=== PATIENT | male | born 1940 | race Caucasian/White ===

== ENCOUNTER → 2017-10-31 12:00 | Outpatient (CLI) | payer MEDICARE, SELFPAY | PROVIDERS: PCP Family Medicine; Visit Provider Internal Medicine Cardiovascular Disease | DX: I25.10 Atherosclerotic heart disease of native coronary artery without angina pectoris (principal); I34.0 Nonrheumatic mitral (valve) insufficiency; E11.9 Type 2 diabetes mellitus without complications; I10 Essential (primary) hypertension | CPT/HCPCS: 99213 ==

== ENCOUNTER 2018-05-19 00:41 | Outpatient (CLI) | payer MEDICARE, SELFPAY ==
--- NOTE | 2018-05-19 10:35 | MERGE_ITS ---
*[facility]* *[facility]* [address] [place] [address] Date of study: 05/19/2018 Transthoracic Echocardiography M-mode, complete 2D, complete spectral Doppler, and color Doppler *STUDY CONCLUSIONS* Summary: 1. Left ventricle: The cavity size was normal. Wall thickness was increased in a pattern of mild LVH. Systolic function was mildly to moderately reduced. The estimated ejection fraction was 40-45%. Akinesis of the apicalanteroseptal, anterior, anterolateral, inferior, and apical myocardium. 2. Aortic valve: There was moderate to severe stenosis. Peak velocity (S): 3m/sec. Mean gradient (S): 22.3mm Hg. Valve area (VTI): 1.1cm^2. 3. Aortic root: The aortic root was mildly dilated. 4.0 cm. 4. Ascending aorta: The ascending aorta was mildly dilated. 3.7 cm. 5. Right ventricle: The cavity size was normal. Wall thickness was normal. Systolic function was normal. *PATIENT PRESENTATION* Height: 177.8cm ((70in) ) S/D Pressure: 143 / 66 Weight: 80.3kg ((176.6lb) ) BSA: 2m^2 Test start time: 10:40 AM. Test stop time: 11:45 AM. PERFORMING Unknown ORDERING Nina Murguia REFERRING Nina Murguia PERFORMING [facility] RT Clay Robledo)(CT), [facility] CONSULTING Russel Steen *PROCEDURE DATA* Procedure information: The patient was identified by two identifiers. This study was interpreted by [facility]. Pertinent images and digital data are archived for permanent storage and are available for subsequent review. Comparison was made to the study of 11/11/2014. Study status: Routine. Transthoracic echocardiography. M-mode, complete 2D, complete spectral Doppler, and color Doppler. A Transthoracic Echocardiogram was performed. Scanning was performed from the parasternal, apical, subcostal, and suprasternal notch acoustic windows. Images were obtained using an [id number] cardiac ultrasound machine. Image quality was adequate. Study completion: The patient tolerated the procedure well. There were no complications. 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 Wall thickness was increased in a pattern of mild LVH. There was a false tendon within the ventricle. Systolic function was mildly to moderately reduced. The estimated ejection fraction was 40-45%. Regional wall motion abnormalities: Akinesis of the apicalanteroseptal, anterior, anterolateral, inferior, and apical myocardium. Findings consistent with diastolic dysfunction. Aortic valve: Trileaflet; moderately thickened, moderately calcified leaflets. Valve mobility was restricted. Doppler: There was moderate to severe stenosis. There was no significant regurgitation. VTI ratio of LVOT to aortic valve: 0.27. Valve area (VTI): 1.1cm^2. Indexed valve area (VTI): 0.5cm^2/m^2. Peak velocity ratio of LVOT to aortic valve: 0.29. Valve area (Vmax): 1.1cm^2. Indexed valve area (Vmax): 0.6cm^2/m^2. Mean velocity ratio of LVOT to aortic valve: 0.29. Valve area (Vmean): 1.1cm^2. Indexed valve area (Vmean): 0.6cm^2/m^2. Mean gradient (S): 22.3mm Hg. Peak gradient (S): 36mm Hg. Aorta: Aortic root: The aortic root was mildly dilated. 4.0 cm. Ascending aorta: The ascending aorta was mildly dilated. 3.7 cm. Mitral valve: Mildly thickened leaflets. Mobility was not restricted. Doppler: Transvalvular velocity was within the normal range. There was no evidence for stenosis. There was no significant regurgitation. Valve area by pressure half-time: 3.4cm^2. Indexed valve area by pressure half-time: 1.7cm^2/m^2. Left atrium: The atrium was normal in size. Right ventricle: The cavity size was normal. Wall thickness was normal. Systolic function was normal. Pulmonic valve: Doppler: Transvalvular velocity was within the normal range. There was no evidence for stenosis. There was mild regurgitation. Tricuspid valve: Structurally normal valve. Doppler: Transvalvular velocity was within the normal range. There was no evidence for stenosis. There was trivial regurgitation. Pulmonary artery: Pulmonary systolic pressure was within the normal range, in the range of 25mm Hg to 30mm Hg. Right atrium: The atrium was normal in size. Pericardium: There was no pericardial effusion. Systemic veins: Inferior vena cava: Well visualized. The vessel was patent and normal in size. The respirophasic diameter changes were in the normal range (greater than or equal to 50%). Measurements Left ventricle Value Reference LV ID, ED, PLAX 4.5 cm 3.5 - 6.0 LV ID, ES, PLAX 3.3 cm 2.1 - 4.0 LV PW thickness, ED, PLAX 1.3 cm LV end-diastolic volume, 1-p A2C 121 ml LV ejection fraction, 1-p A2C 41 % LV end-diastolic volume, 1-p A4C 141 ml LV ejection fraction, 1-p A4C 49 % LV e', lateral 0.048 m/sec LV E/e', lateral 11 LV e', medial 0.044 m/sec LV E/e', medial 12 LV e', average 0.046 m/sec LV E/e', average 11 Ventricular septum Value Reference IVS thickness, ED, PLAX 1.3 cm LVOT Value Reference LVOT ID, A-P 2.2 cm LVOT area 3.9 cm^2 LVOT peak velocity, S 0.87 m/sec LVOT mean velocity, S 0.65 m/sec LVOT VTI, S 19.8 cm LVOT peak gradient, S 3 mm Hg LVOT mean gradient, S 1.9 mm Hg Stroke volume (SV), LVOT DP 78 ml Stroke index (SV/bsa), LVOT DP 39 ml/m^2 Aortic valve Value Reference Aortic valve peak velocity, S 3 m/sec Aortic valve mean velocity, S 2.27 m/sec Aortic valve VTI, S 74.0 cm Aortic mean gradient, S 22.3 mm Hg Aortic peak gradient, S 36 mm Hg VTI ratio, LVOT/AV 0.27 Aortic valve area, VTI 1.1 cm^2 Velocity ratio, peak, LVOT/AV 0.29 Aortic valve area, peak velocity 1.1 cm^2 Velocity ratio, mean, LVOT/AV 0.29 Aortic valve area, mean velocity 1.1 cm^2 Aortic valve area/bsa, mean velocity 0.6 cm^2/m^2 Aorta Value Reference Aortic root ID, ED 4.0 cm Ascending aorta ID, A-P, S 3.7 cm Left atrium Value Reference LA ID, A-P, ES 4.6 cm LA ID/bsa, A-P (H) 2.3 cm/m^2 <=2.2 LA area, ES, A4C (H) 25.3 cm^2 8.8 - 23.4 LA area, ES, A2C 22 cm^2 LA volume/bsa, ES, 1-p A4C 51 ml/m^2 LA volume, ES, 2-p 83 ml LA volume/bsa, ES, 2-p 42 ml/m^2 LA/aortic root ratio 1.14 Mitral valve Value Reference Mitral E-wave peak velocity 0.53 m/sec Mitral A-wave peak velocity 0.9 m/sec Mitral deceleration time 227 ms 150 - 230 Mitral pressure half-time 66 ms Mitral E/A ratio, peak 0.58 Mitral valve area, PHT, DP 3.4 cm^2 Pulmonary veins Value Reference Pulmonary vein peak velocity, S 0.57 m/sec Pulmonary vein peak velocity, D 0.4 m/sec Pulmonary vein velocity ratio, peak, 1.43 S/D Tricuspid valve Value Reference Tricuspid regurg peak velocity 2.6 m/sec Tricuspid peak RV-RA gradient 27.1 mm Hg Right atrium Value Reference RA area, ES, A4C 17.9 cm^2 8.3 - 19.5 Legend: (L) and (H) senia values outside specified reference range. I have personally reviewed the images and have reviewed and edited the reported findings. Electronically signed by Luis Alfredo Araiza 05/19/2018 13:19
== END 2018-05-19 01:01 ==
PROVIDERS: PCP Family Medicine; Visit Provider Internal Medicine Cardiovascular Disease
DX: I25.10 Atherosclerotic heart disease of native coronary artery without angina pectoris (principal); I35.0 Nonrheumatic aortic (valve) stenosis; I10 Essential (primary) hypertension; E11.9 Type 2 diabetes mellitus without complications
CPT/HCPCS: 93306

== ENCOUNTER → 2018-06-05 10:52 | Outpatient (BNVA) | payer MEDICARE, SELFPAY | PROVIDERS: PCP Family Medicine; Visit Provider Internal Medicine Cardiovascular Disease | DX: I10 Essential (primary) hypertension (principal); I25.10 Atherosclerotic heart disease of native coronary artery without angina pectoris; I35.0 Nonrheumatic aortic (valve) stenosis; E11.9 Type 2 diabetes mellitus without complications | CPT/HCPCS: 99214 ==

== ENCOUNTER 2018-07-27 00:59 | Outpatient (CLI) | payer MEDICARE, SELFPAY ==
--- NOTE | 2018-07-27 08:15 | MERGEMPI_ITS ---
*[facility]* *[facility]* [address] [place] [address] Myocardial Perfusion Imaging - SPECT Everett protocol Date of study: 07/27/2018 *PATIENT PRESENTATION* Height: 177.8cm (70in) Blood Pressure: Weight: 79.5kg (175lb) BSA: 1.99m^2 Referring physician: Govind Betancourt MD Ordering physician: Nina Murguia Summary: 1. Myocardial perfusion imaging: There is a large sized, severely intense, fixed defect involving the anterior and apical wall(s). This suggests large myocardial infarction in the distribution of the left anterior descending coronary artery. Overall ischemia: minimal. 2. The calculated left ventricular ejection fraction after stress: 30%. There is dyskinesis involving the apical wall(s) of the left ventricle, consistent with infarction. 3. Stress: The target heart rate was achieved. Indication: R07.89. History: REASON FOR VISIT: CHEST DISCOMFORT, DESCRIBED HEART BURN SYMPTOMS. HE REPORTS HE STOPPED TAKING HIS APPLECIDER VINEGAR 2 WEEKS AGO AND HIS SYMPTOMS HAVE LESSENED SINCE. PT STATES HE HAD AN GA IN 1992 AND HIS ONLY SYMPTOMS WAS HEARTBURN. Risk factors: Family history of coronary artery disease. Hypertension. Diabetes mellitus. Dyslipidemia. Cholesterol: 138mg/dl. HDL: 67mg/dl. LDL: 67mg/dl. Triglycerides: 47mg/dl. ALLERGIES: PENICILLINS. MEDICATIONS: TAMSULOSIN 0.8 MG DAILY. RANITIDINE 150 MG BID. NITROGLYCERINE 0.4 MG BUCCAL Q 15 MIN PRN. MIRABEGRON ER 25 MG DAILY. METFORMIN 500 MG BID. LOSARTAN 25 MG DAILY. GLIPIZIDE 2.5 MG BID. FLUTICASONE NASAL SPRAY 2 SPRAYS AT HS. CHOLECALCIFEROL 1,000 UNITS DAILY. ATORVASTATIN 40 MG DAILY. ATENOLOL 25 MG DAILY. ASPIRIN 81 MG DAILY. ASCORBIC ACID 1,000 MG DAILY. Imaging Technique: Protocol: Everett protocol. Acquisition: Gated SPECT; 1 day - rest/stress. The patient was imaged in the supine position. Attenuation correction used. Isotope administration: - Rest. Tc[99m]-sestamibi. Dose: 11mCi. Injection time: 08:30 AM. Injection to stress time: 00:45. - Stress. Tc[99m]-sestamibi. Dose: 34mCi. Injection time: 10:35 AM. 1-2 min before end of exercise Baseline ECG: SINUS RHYTHM. HR 64 BPM. Stress protocol: + +---+ + !Stage !HR !BP (mmHg) ! + +---+ + !Baseline supine !64 !188/90 (123) ! + +---+ + !Baseline standing !66 !190/90 (123) ! + +---+ + !Stage I; 1.7mph, 10degrees; 3 min !94 !204/100 (135)! + +---+ + !Stage II; 2.5mph, 12degrees; 3 min !118! ! + +---+ + !Stage III; 3.4mph, 14degrees; 3 min!132!206/96 (133) ! + +---+ + !Peak stress !133! ! + +---+ + !Recovery; 1 min !95 !200/64 (109) ! + +---+ + !Recovery; 3 min !76 !180/90 (120) ! + +---+ + !Recovery; 6 min !69 !178/90 (119) ! + +---+ + * Stress results: The target heart rate was achieved. The rate-pressure product for the peak heart rate and blood pressure was 85669pp Hg/min. Stress ECG: TREADMILL PORTION OF STRESS TEST ENDED IN 7 MINUTES & 30 SECONDS DUE TO FATIGUE. HYPERTENSIVE BLOOD PRESSURES PRE EXERCISE. NORMAL HEART RATE AND NORMAL BLOOD PRESSURE RESPONSE TO EXERCISE. OCCASIONAL PVCs. COUPLET X1. APPROXIMATE METS ACHIEVED = 9.[address] NO SIGNIFICANT [address] SEGMENT CHANGES. AVERAGE FUNCTIONAL CAPACITY FOR EXERCISE. TREADMILL PORTION OF STRESS TEST ENDED IN HEART RATE AND BLOOD PRESSURE RESPONSE TO EXERCISE MAX HR % OF TARGET ECTOPY APPROXIMATE METS ACHIEVED ANGINA ST SEGMENT CHANGES FUNCTIONAL CAPACITY FOR EXERCISE. Myocardial perfusion: Imaging information: gated. There is a large sized, severely intense, fixed defect involving the anterior and apical wall(s). This suggests large myocardial infarction in the distribution of the left anterior descending coronary artery. Overall ischemia: minimal. Ventricular Function (Wall Motion): The calculated left ventricular ejection fraction after stress: 30%. There is dyskinesis involving the apical wall(s) of the left ventricle, consistent with infarction. Study data: Govind Betancourt MD supervised and was readily available during the procedure. This study was interpreted by [facility]. Study status: Routine. Consent: The risks, benefits, and alternatives to the procedure were explained to the patient and informed consent was obtained. Procedure: Initial setup. A baseline ECG was recorded. Surface ECG leads and manual cuff blood pressure measurements were monitored. Heart sounds: Murmur. Lung sounds: Normal. Treadmill exercise testing was performed using the Everett protocol. Study completion: All catheters inserted during the procedure were removed. The patient tolerated the procedure well and was discharged from the lab. Discharge: The patient left the laboratory in stable condition. Birthdate: Patient birthdate: 1940. Sex: Gender: male. Study date: Study date: 07/27/2018. Study time: 00:01 AM. Electronically signed by Govind Betancourt MD 07/27/2018 17:51
== END 2018-07-27 01:19 ==
PROVIDERS: PCP Family Medicine; Visit Provider Internal Medicine Cardiovascular Disease
DX: R07.89 Other chest pain (principal); R94.30 Abnormal result of cardiovascular function study, unspecified; I25.2 Old myocardial infarction; I25.10 Atherosclerotic heart disease of native coronary artery without angina pectoris; I10 Essential (primary) hypertension; E78.5 Hyperlipidemia, unspecified; E11.9 Type 2 diabetes mellitus without complications; Z82.49 Family history of ischemic heart disease and other diseases of the circulatory system
CPT/HCPCS: 78452; 93016; 93018; 93017

== ENCOUNTER 2018-11-04 01:45 | Outpatient (CLI) | payer MEDICARE, SELFPAY ==
--- NOTE | 2018-11-04 10:39 | MERGE_ITS ---
*[facility]* *[facility]* [address] [place] [address] Date of study: 11/04/2018 Transthoracic Echocardiography M-mode, complete 2D, complete spectral Doppler, and color Doppler *STUDY CONCLUSIONS* Summary: 1. Left ventricle: The cavity size was normal. Systolic function was mildly reduced. The estimated ejection fraction was 45-50%. Akinesis of the apical myocardium. Findings consistent with diastolic dysfunction. Doppler parameters are consistent with high ventricular filling pressure. 2. Aortic valve: There was moderate stenosis. Peak velocity (S): 3m/sec. Mean gradient (S): 22.2mm Hg. VTI ratio of LVOT to aortic valve: 0.28. Valve area (VTI): 1.1cm^2. 3. Mitral valve: There was mild regurgitation. 4. Left atrium: The atrium was mildly dilated. 5. Right ventricle: The cavity size was normal. Wall thickness was normal. Systolic function was normal. 6. Atrial septum: No defect or patent foramen ovale was identified. 7. Pulmonary arteries: Pulmonary systolic pressure was in the range of 20mm Hg to 30mm Hg. 8. Inferior vena cava: The vessel was patent and normal in size. The respirophasic diameter changes were in the normal range (greater than or equal to 50%), consistent with normal central venous pressure. *PATIENT PRESENTATION* Height: 180.3cm (71in ) S/D Pressure: 135 / 64 Weight: 79.4kg (174.6lb ) BSA: 2m^2 Test start time: 10:40 AM. Test stop time: 11:40 AM. PERFORMING Unknown CONSULTING Nnia Murguia ORDERING Nina Murguia REFERRING Nina Murguia PERFORMING [facility] MEDICAL COLLECTIONS Radha Sepulveda, RT Williamson)(CT), RDCS *PROCEDURE DATA* Procedure information: The patient was identified by two identifiers. This study was interpreted by [facility]. Pertinent images and digital data are archived for permanent storage and are available for subsequent review. Comparison was made to the study of 05/19/2018. Study status: Routine. Transthoracic echocardiography. M-mode, complete 2D, complete spectral Doppler, and color Doppler. A Transthoracic Echocardiogram was performed. Scanning was performed from the parasternal, apical, subcostal, and suprasternal notch acoustic windows. Images were obtained using an [id number] cardiac ultrasound machine. Image quality was adequate. Study completion: The patient tolerated the procedure well. History: PMH: Aortic stenosis i35.0. *CARDIAC ANATOMY* Left ventricle: The cavity size was normal. Systolic function was mildly reduced. The estimated ejection fraction was 45-50%. Regional wall motion abnormalities: Akinesis of the apical myocardium. The tissue Doppler parameters were abnormal. Findings consistent with diastolic dysfunction. Doppler parameters are consistent with high ventricular filling pressure. Aortic valve: Trileaflet; moderately thickened, moderately calcified leaflets. Doppler: There was moderate stenosis. There was no regurgitation. VTI ratio of LVOT to aortic valve: 0.28. Valve area (VTI): 1.1cm^2. Indexed valve area (VTI): 0.5cm^2/m^2. Peak velocity ratio of LVOT to aortic valve: 0.31. Valve area (Vmax): 1.2cm^2. Indexed valve area (Vmax): 0.6cm^2/m^2. Mean velocity ratio of LVOT to aortic valve: 0.29. Valve area (Vmean): 1.1cm^2. Indexed valve area (Vmean): 0.6cm^2/m^2. Mean gradient (S): 22.2mm Hg. Peak gradient (S): 36mm Hg. Aorta: Aortic root: The aortic root was normal in size. Ascending aorta: The ascending aorta was mildly dilated. Mitral valve: Doppler: There was no evidence for stenosis. There was mild regurgitation. Valve area by pressure half-time: 2.9cm^2. Indexed valve area by pressure half-time: 1.4cm^2/m^2. Left atrium: The atrium was mildly dilated. Atrial septum: No defect or patent foramen ovale was identified. Right ventricle: The cavity size was normal. Wall thickness was normal. Systolic function was normal. Pulmonic valve: Doppler: There was no evidence for stenosis. There was trivial regurgitation. Tricuspid valve: Doppler: There was mild regurgitation. Pulmonary artery: Poorly visualized. Pulmonary systolic pressure was in the range of 20mm Hg to 30mm Hg. Right atrium: The atrium was normal in size. Pericardium: There was no pericardial effusion. Systemic veins: Inferior vena cava: Well visualized. The vessel was patent and normal in size. The respirophasic diameter changes were in the normal range (greater than or equal to 50%), consistent with normal central venous pressure. Baseline ECG: Bradycardia. Measurements Left ventricle Value 05/19/2018 Reference LV ID, ED, PLAX 4.9 cm 4.5 3.5 - 6.0 LV ID, ES, PLAX 3.7 cm 3.3 2.1 - 4.0 LV PW thickness, ED, PLAX 1.2 cm 1.3 LV end-diastolic volume, 84 ml 121 1-p A2C LV ejection fraction, 1-p 38 % 41 A2C LV end-diastolic volume, 130 ml 141 1-p A4C LV ejection fraction, 1-p 40 % 49 A4C LV e', lateral 0.037 m/sec 0.048 LV E/e', lateral 14 11 LV e', medial 0.051 m/sec 0.044 LV E/e', medial 11 12 LV e', average 0.044 m/sec 0.046 LV E/e', average 12 11 Ventricular septum Value 05/19/2018 Reference IVS thickness, ED, PLAX 1.2 cm 1.3 LVOT Value 05/19/2018 Reference LVOT ID, A-P 2.2 cm 2.2 LVOT area 3.8 cm^2 3.9 LVOT peak velocity, S 0.93 m/sec 0.87 LVOT mean velocity, S 0.66 m/sec 0.65 LVOT VTI, S 23.0 cm 19.8 LVOT peak gradient, S 3.5 mm Hg 3 LVOT mean gradient, S 1.9 mm Hg 1.9 Stroke volume (SV), LVOT 88 ml 78 DP Stroke index (SV/bsa), 44 ml/m^2 39 LVOT DP Aortic valve Value 05/19/2018 Reference Aortic valve peak 3 m/sec 3 velocity, S Aortic valve mean 2.3 m/sec 2.3 velocity, S Aortic valve VTI, S 81.0 cm 74.0 Aortic mean gradient, S 22.2 mm Hg 22.3 Aortic peak gradient, S 36 mm Hg 36 VTI ratio, LVOT/AV 0.28 0.27 Aortic valve area, VTI 1.1 cm^2 1.1 Velocity ratio, peak, 0.31 0.29 LVOT/AV Aortic valve area, peak 1.2 cm^2 1.1 velocity Velocity ratio, mean, 0.29 0.29 LVOT/AV Aortic valve area, mean 1.1 cm^2 1.1 velocity Aortic valve area/bsa, 0.6 cm^2/m^2 0.6 mean velocity Aorta Value 05/19/2018 Reference Aortic root ID, ED 3.9 cm 4.0 Ascending aorta ID, A-P, S 3.6 cm 3.7 Left atrium Value 05/19/2018 Reference LA ID, A-P, ES 5.0 cm 4.6 LA ID/bsa, A-P (H) 2.5 cm/m^2 2.3 <=2.2 LA volume, ES, 2-p 78 ml 83 LA volume/bsa, ES, 2-p 39 ml/m^2 42 LA/aortic root ratio 1.28 1.14 Mitral valve Value 05/19/2018 Reference Mitral E-wave peak 0.54 m/sec 0.53 velocity Mitral A-wave peak 0.91 m/sec 0.9 velocity Mitral deceleration time (H) 266 ms 227 150 - 230 Mitral pressure half-time 77 ms 66 Mitral E/A ratio, peak 0.59 0.58 Mitral valve area, PHT, DP 2.9 cm^2 3.4 Pulmonary veins Value 05/19/2018 Reference Pulmonary vein peak 0.62 m/sec 0.57 velocity, S Pulmonary vein peak 0.43 m/sec 0.4 velocity, D Pulmonary vein velocity 1.44 1.43 ratio, peak, S/D Pulmonary vein A-wave 0.39 m/sec reversal peak velocity Tricuspid valve Value 05/19/2018 Reference Tricuspid regurg peak 2.5 m/sec 2.6 velocity Tricuspid peak RV-RA 24.9 mm Hg 27.1 gradient Right atrium Value 05/19/2018 Reference RA area, ES, A4C 15.4 cm^2 17.9 8.3 - 19.5 Legend: (L) and (H) senia values outside specified reference range. I have personally reviewed the images and have reviewed and edited the reported findings. Electronically signed by Govind Betancourt MD 11/04/2018 17:24
== END 2018-11-04 02:05 ==
PROVIDERS: PCP Family Medicine; Visit Provider Internal Medicine Cardiovascular Disease
DX: I35.0 Nonrheumatic aortic (valve) stenosis (principal); I50.1 Left ventricular failure, unspecified; I34.0 Nonrheumatic mitral (valve) insufficiency
CPT/HCPCS: 93306

== ENCOUNTER 2018-11-27 09:07 | Outpatient (CLI) | payer MEDICARE, SELFPAY | END 2018-11-27 09:27 | PROVIDERS: PCP Family Medicine; Visit Provider Internal Medicine Cardiovascular Disease | DX: I25.10 Atherosclerotic heart disease of native coronary artery without angina pectoris (principal); I10 Essential (primary) hypertension; I35.0 Nonrheumatic aortic (valve) stenosis; E11.9 Type 2 diabetes mellitus without complications; Z79.84 Long term (current) use of oral hypoglycemic drugs | CPT/HCPCS: 99214 ==

== ENCOUNTER 2019-08-26 04:31 | Outpatient (CLI) | payer MEDICARE, SELFPAY ==
[2019-08-26 14:15] LABS: ALT 25 U/L (16-63); AST 17 U/L (15-37); Alkaline Phosphatase 81 U/L (46-116); Anion Gap 6.9 mmol/L (3-11); BUN 19 mg/dL (7-18); Bilirubin, Total 0.6 mg/dL (0.2-1.0); CO2 29.1 mmol/L (21.0-32.0); Calcium 8.6 mg/dL (8.5-10.1); Chloride 95 mmol/L (98-107); Glucose 232 mg/dL (74-106); Potassium 4.7 mmol/L (3.5-5.1); Sodium 131 mmol/L (136-145); Total Protein 6.9 g/dL (6.4-8.2)
== END 2019-08-26 04:51 ==
PROVIDERS: PCP Family Medicine; Visit Provider Family Medicine
DX: E11.9 Type 2 diabetes mellitus without complications (principal); I10 Essential (primary) hypertension
CPT/HCPCS: 36415; 80053

== ENCOUNTER → 2019-08-27 10:48 | Outpatient (BNVA) | payer MEDICARE, SELFPAY | PROVIDERS: PCP Family Medicine; Visit Provider Internal Medicine Cardiovascular Disease | DX: I34.0 Nonrheumatic mitral (valve) insufficiency (principal); I10 Essential (primary) hypertension; I25.10 Atherosclerotic heart disease of native coronary artery without angina pectoris; E11.9 Type 2 diabetes mellitus without complications | CPT/HCPCS: 99204; 99215 ==

== ENCOUNTER 2020-03-15 02:50 | Outpatient (CLI) | payer MEDICARE, SELFPAY ==
--- NOTE | 2020-03-15 10:11 | DI.US_ITS ---
APPROVED REPORT EXAM: Comprehensive 2D, Doppler, and color-flow Echocardiogram Patient Location: Out-Patient Share Holder: Samantha Cai RDCS (AE) Indications: Aortic stenosis, Atherosclerotic heart disease. Other Information Study Quality: Adequate Conclusion Left Ventricle : The left ventricle is normal size. Left ventricular systolic function is borderline. There is normal left ventricular wall thickness. Regional wall motion abnormalities are noted. The l eft ventricular diastolic function is normal. LVEF is 50%. Right Ventricle : The right ventricle is normal size. The right ventricular systolic function is norm al. The RVSP is 19.7 mmHg. Atria : Left atrium is mildly dilated. The right atrium size is normal. Aortic Valve : Aortic valve is calcified. The Aortic valve is sclerotic. Aortic valve is trileaflet. Trace aortic regurgitation. Peak aortic valve gradient is 27.1mmHg. Highest mean aortic valve gradien t is 15.5mmHg. Calculated KEISHA by the continuity equation is 1.35cm2. Moderate aortic stenosis. Mitral Valve : Mild mitral annular calcification. Mild mitral regurgitation. No evidence of mitral va lve stenosis. Great Vessels : The aortic root is normal in size. The ascending aorta is mildly dilated. IVC is norm al in size and collapses >50% with inspiration. Compared to study from 05/19/2018, there have been no significant changes. Wall motion Left Ventricle The left ventricle is normal size. Left ventricular systolic function is borderline. There is normal left ventricular wall thickness. Regional wall motion abnormalities are noted. The left ventricular d iastolic function is normal. There is no ventricular septal defect visualized. LVEF is 50%. Right Ventricle The right ventricle is normal size. The right ventricular systolic function is normal. The RVSP is 19 .7 mmHg. Atria Left atrium is mildly dilated. The right atrium size is normal. The interatrial septum is intact with no evidence for an atrial septal defect. Aortic Valve Aortic valve is calcified. The Aortic valve is sclerotic. Aortic valve is trileaflet. Peak aortic jazlyn ve gradient is 27.1mmHg. Highest mean aortic valve gradient is 15.5mmHg. Calculated KEISHA by the contin uity equation is 1.35cm2 Moderate aortic stenosis. Trace aortic regurgitation. Mitral Valve Mild mitral annular calcification. No evidence of mitral valve stenosis. Mild mitral regurgitation. Tricuspid Valve The tricuspid valve is normal in structure. There is no tricuspid valve stenosis. Trace tricuspid reg urgitation. Pulmonic Valve The pulmonary valve is normal in structure. There is no pulmonic valvular stenosis. Trace pulmonic re gurgitation. Great Vessels The aortic root is normal in size. The ascending aorta is mildly dilated. IVC is normal in size and c ollapses >50% with inspiration. Pericardium There is no pericardial effusion. 2D Dimensions IVSD d PLAX 0.94 cm M: 0.6-1.2 LV Vol A2C d MOD 130.5 mL LVPW d PLAX 0.91 cm M: 0.6 - 1.2 LV Vol A4C d MOD 152.6 mL LVID d PLAX 5.08 cm M: 4.2 - 5.8 LA vol/ BSA A2C s A-L 37.1 mL/m2 LVDs 3.80 cm M: 2.5 - 4.0 LA vol/ BSA A4C s A-L 38.8 mL/m2 Ao Root d 3.32 cm M: 3.1 - 3.7 LA Vol/ BSA Biplane s A-L 38.3 mL/m2 RA Area A4C 13.64 cm2 LA Area A4C s MOD 23.07 cm2 RA Vol/ BSA A4C s A-L 16.3 mL/m2 LA Area A2C s MOD 22.76 cm2 Ao Asc Diam d 3.83 cm M: 2.6 - 3.4 LV EF A4C MOD 47.8 % LV EF Teichholz 49.0 % LV EF A2C MOD 51.1 % LVEF (Thompson's) 47.53 % M: 52 - 72 LV EF Biplane MOD 47.5 % LV Volume 105.75 mL M: 62 - 150 SV 67.07 mL LV Volume Index 52.87 mL/m2 M: 34 - 74 SV Index 33.45 mL/m2 LV Vol Biplane MOD 141.1 mL FS 24.85 % M-Mode TAPSE 2.83 cm (M/F) >1.7 LV Diastology MV E' medial 0.053 (>0.07 m/s) E/A Ratio 0.8 LV E/e MED 11.20 (<14) MV E Vmax 0.59 (0.4-1.3 m/s) MV E' lateral 0.067 (>0.1 m/s) MV A Vmax 0.70 (0.4-1.3 m/s) LV E/e LAT 8.75 (<14) MV E/A Ratio 0.83 MV E/E' medial 11.22 MV E/E' lateral 8.78 Aortic Valve LVOT Area 4.17 cm2 AoV Area Vmax 1.35 cm2 LVOT Vmax 0.85 m/s AoV Area/ BSA (Vmax) 0.68 cm2/m2 LVOT Mean Ed. 0.56 m/s KEISHA Mean Ed. 1.23 cm2 LVOT Peak Grad 2.9 mmHg KEISHA Mean Ed. Index 0.61 cm2/m2 LVOT Mean Grad 1.5 mmHg LVOT VTI 0.202 m LVOT Diam s 2.30 cm AoV Vmax 2.60 m/s Velocity Ratio 0.32 AoV Mean Ed. 1.89 m/s AoV Peak Grad 27.1 mmHg LVOT SV 84.11 mL AoV Mean Grad 15.5 mmHg AoV VTI 0.666 m AoV Area VTI 1.26 cm2 AoV Area/ BSA (VTI) 0.63 cm/m2 Mitral Valve MV DT 193 (160-240 msec) MV PHT 56 msec MV Area PHT 3.94 cm2 MV VTI 0.325 m MV VTI Annulus 0.331 m MV Area VTI 2.64 (4.0-6.0 cm2) Pulmonary Valve PV Vmax 1.07 (0.5-1.5 m/s) RVOT Peak Gr. 1.82 mmHg PV Peak Grad 4.6 mmHg RVOT Mean Gr. 0.95 mmHg PV Mean Grad 2.4 mmHg RVOT VTI 0.157 m PV VTI 0.238 m RVOT Vmax 0.68 m/s Tricuspid Valve TR Peak Grad 16.6 mmHg TR Vmax 2.04 m/s RA Pressure 3.00 mmHg RVSP (TR) 19.7 mmHg
== END 2020-03-15 03:10 ==
PROVIDERS: PCP Family Medicine; Visit Provider Internal Medicine Cardiovascular Disease
DX: I25.10 Atherosclerotic heart disease of native coronary artery without angina pectoris (principal); I08.0 Rheumatic disorders of both mitral and aortic valves
CPT/HCPCS: 93306

== ENCOUNTER → 2020-04-06 14:20 | Outpatient (BNVA) | payer MEDICARE, SELFPAY | PROVIDERS: PCP Family Medicine; Referring Provider Family Medicine; Visit Provider Internal Medicine Cardiovascular Disease | DX: I25.10 Atherosclerotic heart disease of native coronary artery without angina pectoris; I08.0 Rheumatic disorders of both mitral and aortic valves | CPT/HCPCS: 99214; 99442 ==

== ENCOUNTER 2020-05-03 19:19 | Outpatient (CLI) | payer MEDICARE, SELFPAY ==
--- NOTE | 2020-05-03 08:50 | DI.RAD_ITS ---
EXAM: XR CERVICAL SPINE COMP 4-5V CLINICAL HISTORY: New onset pain, R sided C1-C2 m54.2 cervicalgia. TECHNIQUE: 2D digital imaging was performed. COMPARISON: No exams were available for comparison FINDINGS: There is no evidence of fracture, listhesis, nor offset of the spinal laminar line. There is advance d disc space narrowing chronic nature at C5-6 and C6-7 levels. Other disc spaces exhibit normal heig ht with the exception of mild narrowing at C3-4. On the oblique views there are small bilateral Lusc hka joint osteophytes at C5-6 level. There are multilevel degenerative changes in the facet joints i n the lower cervical spine. There are no cervical ribs. IMPRESSION: Degenerative disc disease, as described above. Degenerative changes the facet joints. No osseous le sions.. DATA REPOSITORY: RADIATION DOSE DELIVERED:
== END 2020-05-03 19:20 ==
PROVIDERS: PCP Family Medicine; Visit Provider Family Medicine
DX: M54.2 Cervicalgia (principal); M50.322 Other cervical disc degeneration at C5-C6 level; M50.323 Other cervical disc degeneration at C6-C7 level
CPT/HCPCS: 72050

== ENCOUNTER → 2020-10-05 12:51 | Outpatient (BNVA) | payer MEDICARE, SELFPAY | PROVIDERS: PCP Family Medicine; Referring Provider Family Medicine; Visit Provider Internal Medicine Cardiovascular Disease | DX: I34.0 Nonrheumatic mitral (valve) insufficiency (principal); I10 Essential (primary) hypertension; I25.10 Atherosclerotic heart disease of native coronary artery without angina pectoris | CPT/HCPCS: 99214; 99213 ==

== ENCOUNTER → 2021-04-06 12:59 | Outpatient (BNVA) | payer MEDICARE, SELFPAY | PROVIDERS: PCP Family Medicine; Referring Provider Family Medicine; Visit Provider Internal Medicine Cardiovascular Disease | DX: I25.10 Atherosclerotic heart disease of native coronary artery without angina pectoris (principal); I35.0 Nonrheumatic aortic (valve) stenosis; I10 Essential (primary) hypertension | CPT/HCPCS: 99214; 99213 ==

== ENCOUNTER → 2021-05-10 09:15 | Outpatient (BNVA) | payer MEDICARE, SELFPAY | PROVIDERS: PCP Family Medicine; Referring Provider Family Medicine; Visit Provider Psychiatry & Neurology Neurology | DX: G62.9 Polyneuropathy, unspecified (principal); E11.9 Type 2 diabetes mellitus without complications | CPT/HCPCS: 99214 ==

== ENCOUNTER 2021-06-05 14:06 | Outpatient (CLI) | payer MEDICARE, SELFPAY ==
[2021-06-05 14:19] LABS: ALT 25 U/L (16-63); AST 13 U/L (15-37); Albumin 3.9 g/dL (3.4-5.0); Alkaline Phosphatase 74 U/L (46-116); Anion Gap 3.7 mmol/L (3-11); BUN 18 mg/dL (7-18); Bilirubin, Total 0.5 mg/dL (0.2-1.0); CO2 30.3 mmol/L (21.0-32.0); CREATININE 0.9 mg/dL (0.70-1.30); Calcium 8.6 mg/dL (8.5-10.1); Chloride 96 mmol/L (98-107); Glucose 150 mg/dL (74-106); Potassium 4.3 mmol/L (3.5-5.1); Sodium 130 mmol/L (136-145); Total Protein 7.4 g/dL (6.4-8.2)
[2021-06-05 15:33] LABS: TSH (W/Ref FT4) 1.78 uIU/mL (0.36-3.74); Vitamin B12 334 pg/mL (193-986)
[2021-06-06 11:52] LABS: Albumin 59.7 % (55.8-66.1); Total Protein 7.2 g/dL (6.3-8.2)
== END 2021-06-05 14:07 | disposition home or self-care (01) ==
LOC: LBO 14:11
PROVIDERS: Psychiatry & Neurology Neurology; PCP Family Medicine; Visit Provider Family Medicine
DX: G62.9 Polyneuropathy, unspecified; E11.319 Type 2 diabetes mellitus with unspecified diabetic retinopathy without macular edema
CPT/HCPCS: 36415; 80053; 82607; 84165; 84443

== ENCOUNTER → 2021-09-21 00:24 | Outpatient (CLI) | payer MEDICARE, SELFPAY ==
--- OUTSIDE RECORDS SUMMARY | 2021-09-21 00:26 | XMS_ITS | Clinical Summary ---
:1940 Author Organization [facility] [address] Care Team Providers Name Role Phone Russel Steen DO Primary Care Provider Allergies Active Allergy Reactions Severity Noted Date Comments Penicillins Medium CIS - arm swell ing Medications Medication Sig Dispensed Refills Start Date End Date Status atorvastatin (LIPITOR) 0 01/14/2016 Active 40 mg Tablet glipiZIDE (GLUCOTROL) take 1/2 tablet by 0 6 Active 5 mg Tablet mouth 20 MINUTES PRIOR TO BREAKFAST if needed TO CONTROL BLOOD SUGAR metFORMIN take 1 tablet by 0 01/12/2016 Ac tive (GLUCOPHAGE-XR) 500 mg mouth twice a day Tablet Sustained Release 24 hr NITROSTAT 0.4 mg take 1 tablet 0 09/15/2015 Active Tablet, Sublingual under the tongue every 15 minutes if needed for angina tamsulosin (FLOMAX) 0 01/14/2016 Active 0.4 mg Capsule, Sust. Release 24 hr benzonatate (TESSALON) take 1 capsule by 0 7 Active 100 mg Capsule mouth every 4 hours if needed FREESTYLE LITE STRIPS 0 04/10/2017 Active fluticasone (FLONASE) instill 2 sprays 0 02/06/2017 Active 50 mcg/actuation into each nostril [place], Suspension at bedtime omeprazole (PriLOSEC) TAKE ONE CAPSULE 0 02/24/2019 Active 20 mg Capsule, Delayed BY MOUTH ONCE Release(E.C.) DAILY ketoconazole (Nizoral) APPLY TO BOTH FEET 0 02/01/20 21 Active 2 % Cream DAILY FOR FOUR WEEKS THEN EVERY OTHER DAY Onglyza 5 mg Tablet 0 03/12/2021 Active Januvia 50 mg Tablet TAKE 1 TABLET BY 0 12/11/2020 Active MOUTH DAILY atenoloL (Tenormin) 25 TAKE 1 TABLET BY 0 04/30/2021 Active mg Tablet MOUTH DAILY losartan (Cozaar) 50 TAKE 1 TABLET BY 0 02/09/2021 Active mg Tablet MOUTH DAILY Active Problems Problem Noted Date AK (actinic keratosis) 05/14/2013 Social History Tobacco Use Types Packs/Day Years Used Date Never Smoker Smokeless Tobacco: Never Used Sex Assigned at Date Recorded Not on file Plan of Treatment Upcoming Encounters Date Type Specialty Care Team Description 05/14/2022 Office Visit Dermatology Isai Delatorre MD [address] DERMATOLOGY [place], [place] [address] (Wo rk) Health Maintenance Due Date Last Done Comments Covid-19 Vaccine (#1) 1945 Tdap adult 08/25/1959 Tetanus vaccine 08/25/1959 Zoster vaccine (1 of 2) 1990 Pneumoccocal Vaccine: 65+ (1 - PCV) 2005 Influenza (Flu) vaccine (1 of 1 - Influenza standard 11/08/2021 series) Insurance Payer Benefit Plan / Subscriber ID Effective Dates Phone Addre ss Type Group MEDICARE MEDICARE [id number] 2008-Presen [address] [place] [place], [place] [id number] AARP SUPPLEMENT AARP SUPPLEMENT [id number] 2015-Presen [address] [place] [address] Advance Directives Documents on File Type Date Recorded Patient Piece Meat Trimmer Explanati on Advance Directives and Living 11/12/2013 3:19 PM Will Care Teams General Studies Program Chair Relationship Specialty Start Date End Date Russel Steen DO PCP - General Family Medicine 05/02/[address] [place], [place] [address]
--- OUTSIDE RECORDS SUMMARY | 2021-09-21 00:26 | XMS_ITS | Clinical Summary ---
:1940 Demographics Home Phone Preferred Language Unknown Marital Status Unknown Pentecostalism Affiliation Unknown Race Unknown Ethnic Group Unknown Author Organization [facility] Address [address] [place] [address] Care Team Providers Name Role Phone Unknown, Provider Primary Care Provider Social History Tobacco Use Types Packs/Day Years Used Date Never Assessed Sex Assigned at Date Recorded Not on file Plan of Treatment Health Maintenance Due Date Last Done Comments COVID-19 Vaccine (1) 1945 Fall Risk Screening 2005 Care Teams Hygiene Coordinator Relationship Specialty Start Date End Date Unknown, Provider, PCP - General 05/17/16
--- OUTSIDE RECORDS SUMMARY | 2021-09-21 00:26 | XMS_ITS | Encounter Summary ---
:1940 [place] [address] Care Team Providers Name Role Phone Russel Hussein MD Primary Care Provider Encounter Details Date Type Department Care Team Description 12/28/2009 Orders Only Lab [facility] Galilea Montana MD [facility] Cornell yang [place] [address] [place] [address] [phone] (Wo rk) Social History Tobacco Use Types Packs/Day Years Used Date Never Assessed Sex Assigned at Date Recorded Not on file documented as of this encounter Plan of Treatment Upcoming Encounters Date Type Specialty Care Team Description 05/14/2022 Office Visit Dermatology Isai Delatorre MD [address] [place] [address] DERMATOLOGY [place], [place] [address] (Wo rk) documented as of this encounter Procedures Procedure Name Priority Date/Time Associated Comments Diagnosis TESTOSTERONE, TOTAL Routine 12/28/2009 12:05 Resu lts for this PM EDT procedure are i n the results section. FOLLICLE STIMULATING Routine 12/28/2009 12:05 Res ults for this HORMONE PM EDT procedure are i n the results section. documented in this encounter Results FOLLICLE STIMULATING HORMONE (12/28/2009 12:05 PM EDT) P athologist Signature FSH 10.8 1.5 - 12.4 CERNER mlU/ML MILLENNIUM Comment: Reference Ranges: Females: Follicular: ? 3.5-12.5 mIU/mL Ovulation: ?4.7-21.5 mIU/mL Luteal: ? 1.7-7.7 mIU/mL Postmenopausal: 25.8-134.8 mIU/mL Specimen Anatomical Collection Method Collection Time Receive d Time (Source) Location / / Volume Laterality Blood specimen 12/28/2009 12:05 0 (specimen) PM EDT 12:29 PM EDT Galilea Castillo MD CHEMISTRY ORDERABLES Performing Organization Address City/State/ZIP [place] [address] CERNER MILLENNIUM TESTOSTERONE (12/28/2009 12:05 PM EDT) athologist Signature Testo Total 4.46 2.80 - 8.00 CERNER ng/mL MILLENNIUM Comment: Pediatric Ranges have not been validated at [facility]. Interpret with caution. Specimen Anatomical Collection Method Collection Time Receive d Time (Source) Location / / Volume Laterality Blood specimen 12/28/2009 12:05 0 (specimen) PM EDT 12:29 PM EDT Galilea Castillo MD CHEMISTRY ORDERABLES Performing Organization Address City/[facility]/ZIP [place] [address] CERNER MILLENNIUM documented in this encounter Visit Diagnoses Not on filedocumented in this encounter Care Teams Team Leader/Research Psychologist Relationship Specialty Start Date End Date Russel Hussein MD PCP - General 01/30/10 05/01/[address] [place] [address] documented as of this encounter
--- OUTSIDE RECORDS SUMMARY | 2021-09-21 00:26 | XMS_ITS | Encounter Summary ---
:1940 Author Organization [facility] [place] [address] Care Team Providers Name Role Phone Russel Hussein MD Primary Care Provider [phone] Reason for Visit Reason Comments Follow-up Skin Check Encounter Details Date Type Department Care Team Description 02/22/2016 Office Visit Dermatology at Isai Delatorre [place] (act ankush Lopez MD keratosis) [address] [facility] Mario B DERMATOLOGY [place], [place] [id number] [phone] Social History Tobacco Use Types Packs/Day Years Used Date Never Smoker Sex Assigned at Date Recorded Not on file documented as of this encounter Progress Notes Isai Delatorre MD - 02/22/2016 4:15 PM EST Problem: Check bilateral spiritism lesions. Brody follows today with his , Pita. She states that he has a white spot on his left spiritism and rough areas there. I last saw him in May of 2013 and treated several actinics there with liquid nitrogen. Physical examination reveals a pleasant 75-year-old gentleman who has actinic keratosis on the left spiritism. They are hyperkeratotic, and one is present at the center of a hypopigmented patch, and one is present at the periphery and is slightly pigmented accentuating the LN2 hypopigmentation since last visit. Fortunately examination of the face is benign. He has no right spiritism lesions today. Examination of the hands and forearms is benign. He has no lesions of concern. ASSESSMENT AND PLAN: Actinic keratoses. a. Recommend that we begin imiquimod 5% cream (Aldara) applying on a daily basis, Friday through Fridays only for 6 weeks then DC. b. I ordered to dispense #24 packets (6 g) with 1 refill. This will be called in to their [facility] in [place]. c. Reassured about premalignant and nonmalignant nature of these lesions. d. Continue sun avoidance precautions. cc: Russel Hussein MD documented in this encounter Plan of Treatment Upcoming Encounters Date Type Specialty Care Team Description 05/14/2022 Office Visit Dermatology Isai Delatorre MD [address] [facility] DERMATOLOGY [place], [place] [address] (Wo rk) documented as of this encounter Visit Diagnoses Diagnosis AK (actinic keratosis) Actinic keratosis documented in this encounter Care Teams Airplane Gas Tank Liner Assembler Relationship Specialty Start Date End Date Russel Hussein MD PCP - General 01/30/10 05/01/17 [address] [place] [address] documented as of this encounter
--- OUTSIDE RECORDS SUMMARY | 2021-09-21 00:26 | XMS_ITS | Encounter Summary ---
:1940 Author Organization [facility] [place] [address] Care Team Providers Name Role Phone Russel Steen Primary Care Provider Reason for Visit Reason Comments Skin Check Encounter Details Date Type Department Care Team Description 05/10/2021 Office Visit Dermatology at Isai Delatorre Seborrh eic dermatitis Jessica CARBONE [address] [facility] Mario B DERMATOLOGY [place], [place] [phone] Social History Tobacco Use Types Packs/Day Years Used Date Never Smoker Smokeless Tobacco: Never Used Sex Assigned at Date Recorded Not on file documented as of this encounter Progress Notes Isai Delatorre MD - 05/10/2021 3:30 PM EST Problem: 1. ??Skin check 2. ??Status post imiquimod cream therapy 3 weeks, 5 days a week, then had an excessive reaction February 2016 3. ??Status post Friday through Friday through course of imiquimod cream 5% with excess excessive reaction February 4. ??No prior history of skin cancer ?? Ken follows up and is now 80. It has been 2 years since I saw him last, a delay caused by the Covid pandemic. He is here today with his Pita. He likely general skin checkup. Physical examination reveals a pleasant 80-year-old gentleman who worked for a number of years on arrival to [place] in the [employer]. He has benign examination of the scalp the temples and face there is noevidence of any lesions on the ears and neck or hands. He does not desire total-body skin examination examination of the chest back or legs. He has mild seborrhea with scaling on the left nasal ala. Examination of the bald parietal scalp is unremarkable. Assessment plan: Benign skin examination 1. Patient reassured about benign skin examination 2. No actinic damage requiring therapy seen today. 3. Recommend that I continue to see him on a once yearly basis. Seborrheic dermatitis left nasal ala 1. Discussed the option of using Cortaid or cortisone 10 for this area if desired CC: Russel Steen DO documented in this encounter Plan of Treatment Upcoming Encounters Date Type Specialty Care Team Description 05/14/2022 Office Visit Dermatology Isai Delatorre MD [address] [facility] DERMATOLOGY [place], [place] [address] (Wo rk) documented as of this encounter Visit Diagnoses Diagnosis Seborrheic dermatitis Seborrheic dermatitis, unspecified documented in this encounter Care Teams Investigative Analyst Relationship Specialty Start Date End Date Russel Steen DO PCP - General Family Medicine 05/02/17 [address] [place] [address] documented as of this encounter
--- OUTSIDE RECORDS SUMMARY | 2021-09-21 00:26 | XMS_ITS | Encounter Summary ---
:1940 Demographics Home Phone Preferred Language Unknown Marital Status Unknown Roman Catholic Affiliation Unknown Race Unknown Ethnic Group Unknown Author Organization [facility] Address [address] [place] [address] Care Team Providers Name Role Phone Unknown, Provider Primary Care Provider Encounter Details Date Type Department Care Team Description 06/05/2021 Lab Requisition [facility] Outr Resulting Lab, Pathology & Laboratory Provider [facility] [address] [place] [address] Social History Tobacco Use Types Packs/Day Years Used Date Never Assessed Sex Assigned at Date Recorded Not on file documented as of this encounter Plan of Treatment Not on filedocumented as of this encounter Procedures Procedure Name Priority Date/Time Associated Comments Diagnosis SPEP, INCLUDES Today 06/05/2021 13:58 Results f or this QUANTITATION OF EDT procedure ar e in MONOCLONAL SPIKE the results PERFORMABLE section. SPEP, INCLUDES Routine 06/05/2021 13:58 Results f or this QUANTITATION OF EDT procedure ar e in MONOCLONAL SPIKE the results section. PROTEIN, TOTAL Today 06/05/2021 13:58 EDT documented in this encounter Results SPEP, INCLUDES QUANTITATION OF MONOCLONAL SPIKE PERFORMABLE (06/05/2021 13:58 EDT) Albumin % 59.7 55.8 - 66.1 % [facility] Alpha-1 % 4.1 2.9 - 4.9 % [facility] Alpha-2 % 8.7 7.1 - 11.8 % [facility] Beta % 11.3 8.4 - 13.1 % [facility] Gamma % 16.2 11.1 - 18.8 % [facility] SPEP Comment No apparent [facility] monoclonal protein LABORATORY SERVICES seen on serum electrophoresisComm ent: See scanned/supplementa ry report. Total Protein 7.2 6.3 - 8.2 g/dL [facility] Specimen Blood - Venous blood (substance) Narrative This result has an attachment that is no t available. Performing Organization Address City/State/ZIP Code Phon e Number [facility] [address] [place] [address] SERVICES PROTEIN, TOTAL (06/05/2021 13:58 EDT) Specimen Blood - Venous blood (substance) Performing Organization Address City/State/ZIP Code Phon e Number [facility] [address] [place] [address] SERVICES documented in this encounter Visit Diagnoses Not on filedocumented in this encounter Care Teams Transfusion Aide Relationship Specialty Start Date End Date Unknown, Provider, PCP - General 05/17/16 documented as of this encounter
--- OUTSIDE RECORDS SUMMARY | 2021-09-21 00:26 | XMS_ITS | Encounter Summary ---
:1940 Author Organization [place] [address] Care Team Providers Name Role Phone Russel Hussein MD Primary Care Provider [phone] Reason for Visit Reason Comments Follow-up Imiquimod treatment left tem ple Encounter Details Date Type Department Care Team Description 05/02/2016 Office Visit Dermatology at Isai Delatorre [place] (jed Lopez MD keratosis) [address] [facility] Mario [address] DERMATOLOGY [place], [place] [phone] Social History Tobacco Use Types Packs/Day Years Used Date Never Smoker Sex Assigned at Date Recorded Not on file documented as of this encounter Progress Notes Isai Delatorre MD - 05/02/2016 3:15 PM EST PROBLEMS: 1. Skin lesion, follow up imiquimod cream course. 2. Status post Friday through Friday 3-week course of imiquimod cream 5% with excessive reaction February through 03/2015. Ken follows up with his , Pita. He was able to use the imiquimod at bedtime 5 days a week for only 3 weeks before he had very significant inflammatory reaction and had to stop it. Physical examination today shows, after he has having stopped it several weeks ago, his skin has cleared and the actinics have all but cleared. The hyperkeratotic lesions have resolved. He has 1 minimal site remaining, still on the left restorationism. A/P: 1. Actinic keratosis. a. LN2 x2 applied to a single site. b. Patient reassured about remainder of benign skin examination. c. Return to clinic in another year for a repeat check. d. Stressed the importance of sun avoidance precautions, wearing a broad-brimmed hat, etc. cc: Russel Jewell MD documented in this encounter Plan of Treatment Upcoming Encounters Date Type Specialty Care Team Description 05/14/2022 Office Visit Dermatology Isai Delatorre MD [address] [facility] DERMATOLOGY [place], [place] [address] (Wo rk) documented as of this encounter Visit Diagnoses Diagnosis AK (actinic keratosis) Actinic keratosis documented in this encounter Care Teams Ice Cream Chef Relationship Specialty Start Date End Date Russel Hussein MD PCP - General 01/30/10 05/01/17 [address] [place] [address] documented as of this encounter
--- OUTSIDE RECORDS SUMMARY | 2021-09-21 00:26 | XMS_ITS | Encounter Summary ---
:1940 Author Organization [facility] [address] Care Team Providers Name Role Phone Russel Hussein MD Primary Care Provider [phone] Encounter Details Date Type Department Care Team Description 02/22/2016 Refill Dermatology at [facility] Valeria Nation, TERMINAL OPERATIONS MANAGER [address] [place] [address] Social History Tobacco Use Types Packs/Day Years Used Date Never Smoker Sex Assigned at Date Recorded Not on file documented as of this encounter Plan of Treatment Upcoming Encounters Date Type Specialty Care Team Description 05/14/2022 Office Visit Dermatology Isai Delatorre MD [address] [facility] DERMATOLOGY [place], [place] [address] (Wo rk) documented as of this encounter Visit Diagnoses Not on filedocumented in this encounter Care Teams Email Marketing Intern Relationship Specialty Start Date End Date Russel Hussein MD PCP - General 01/30/10 05/01/17 [address] [place] [address] documented as of this encounter
--- OUTSIDE RECORDS SUMMARY | 2021-09-21 00:26 | XMS_ITS | Encounter Summary ---
:1940 Author Organization [facility] [place] [address] Care Team Providers Name Role Phone Russel Hussein MD Primary Care Provider [phone] Reason for Visit Reason Comments Skin Check Encounter Details Date Type Department Care Team Description 05/14/2013 Office Visit Dermatology at Isai Delatorre [place] (act ankush Lopez MD keratosis) (Primary [address] D[address]) [facility] B DERMATOLOGY [place], [place] [id number] [phone] Social History Tobacco Use Types Packs/Day Years Used Date Unknown If Ever Smoked Sex Assigned at Date Recorded Not on file documented as of this encounter Progress Notes Isai Delatorre MD - 05/14/2013 10:40 AM EST Problem: Skin lesion of concern. Brody follows up after last seeing me in 2009. He is here today with his , Pita. She [place] [facility]. Brody has had a fair amount of sun exposure over the years, working for the railroad, farming, etc. He has been treated now on two or three occasions for actinic keratoses. These seem to come back every year, and he wonders what needs to be done for this. Ken met his in [place] and has lived in [place] and in [place] for a number of years before moving back down to the [place] [address]. Physical examination reveals a pleasant, 72-year-old gentleman who has actinics present on the left shinto, left forehead, and left lateral cheek, and also on the left lateral neck below his ear. The remainder of the sun-exposed skin examination is benign. Assessment and Plan: Actinic keratoses. a. LN2 times two today applied to each of four sites. b. Patient reassured about remainder of benign skin examination. c. Discussed the need probably for more regular visits to treat recurring actinics on sun-damaged skin. Discussed the lack of permanent curative therapy for these. d. I did enforce the use of sunscreen, wearing a broad-brimmed hat, etc. COPY: Angeli Martin M.D. documented in this encounter Plan of Treatment Upcoming Encounters Date Type Specialty Care Team Description 05/14/2022 Office Visit Dermatology Isai Delatorre MD [address] [facility] DERMATOLOGY [place], [place] [address] (Wo rk) documented as of this encounter Visit Diagnoses Diagnosis AK (actinic keratosis) - Primary Actinic keratosis documented in this encounter Care Teams Profile Grinder Technician Relationship Specialty Start Date End Date Russel Hussein MD PCP - General 01/30/10 05/01/17 [address] [place] [address] documented as of this encounter
--- OUTSIDE RECORDS SUMMARY | 2021-09-21 00:26 | XMS_ITS | Encounter Summary ---
:1940 Author Organization [facility] [address] Care Team Providers Name Role Phone Russel Steen Ayleen SMITH Primary Care Provider Reason for Visit Reason Comments Annual Exam Encounter Details Date Type Department Care Team Description 05/02/2017 Office Visit Dermatology at Isai Delatorre [place] (jed Lopez MD keratosis) [address] [facility] Mario [address] DERMATOLOGY [place], [place] [phone] Social History Tobacco Use Types Packs/Day Years Used Date Never Smoker Smokeless Tobacco: Never Used Sex Assigned at Date Recorded Not on file documented as of this encounter Progress Notes Isai Delatorre MD - 05/02/2017 3:15 PM EST Problem: 1. Skin check 2. Status post imiquimod cream therapy 3 weeks, 5 days a week, then had an excessive reaction February 2016 3. Status post Friday through Friday through course of imiquimod cream 5% with excess excessive reaction February 4. No prior history of skin cancer Don follows up and has been doing well. He has only noted one single actinic keratosis which has recurred. His has not been doing well. She suffered a vertebral fracture apparently at L2, has recently had varicella-zoster. Physical examination reveals a single actinic keratosis quite minimal on the left preauricular cheek. He has benign examination of the bald parietal scalp of his face his ears his neck dorsal hands. He does not desire total body skin examination. He denies any lesions of the chest back or legs. Assessment plan: Actinic keratosis, one site 1. LN 2 x 2 applied to single site 2. Patient reassured about wonderful response and persistent response to imiquimod cream therapy 3. At this time would recommend just following up on a as needed basis. He will call this office if he develops again any crusting scabbing lesions, actinic keratosis, which is quite familiar with. 4. Continue with sun avoidance precautions. Continue wearing a broad brimmed hat CC: Russel Steen DO documented in this encounter Plan of Treatment Upcoming Encounters Date Type Specialty Care Team Description 05/14/2022 Office Visit Dermatology Isai Delatorre MD [address] [facility] DERMATOLOGY [place], [place] [address] (Wo rk) documented as of this encounter Visit Diagnoses Diagnosis AK (actinic keratosis) Actinic keratosis documented in this encounter Care Teams Sergeant Of Corrections Relationship Specialty Start Date End Date Russel Steen DO PCP - General Family Medicine 05/02/[address] [place] [address] documented as of this encounter
--- NOTE | 2021-09-21 10:35 | DI.US_ITS ---
APPROVED REPORT EXAM: Comprehensive 2D, Doppler, and color-flow Echocardiogram Patient Location: Out-Patient Check Processing Clerk: Samantha Cai RDCS (AE) Indications: CAD Other Information Study Quality: Adequate Conclusion Normal left ventricular wall thickness and chamber size. Estimated ejection fraction is 45 to 50%. The apex, anteroapical segments are akinetic Normal right ventricular size and systolic function Left atrium is mildly dilated. The right atrium is normal in size Aortic valve is sclerotic and trileaflet. There is mild to moderate aortic stenosis. Peak gradient is 31, mean is 18 mmHg. Calculated aortic valve area is 1.02 cm?? Mild mitral annular calcification. Mild to moderate mitral regurgitation Normal tricuspid valve with trace regurgitation. Estimated right ventricular systolic pressure is 27 mmHg Mildly dilated ascending aorta Wall motion Left Ventricle The left ventricle is normal size. Left ventricular systolic function is mildly decreased. There is n ormal left ventricular wall thickness. Regional wall motion abnormalities are noted. There is no vent ricular septal defect visualized. LVEF is 48%. Right Ventricle The right ventricle is normal size. The right ventricular systolic function is normal. The RVSP is 25 .7mmHg. Atria Left atrium is mildly dilated. The right atrium size is normal. The interatrial septum is intact with no evidence for an atrial septal defect. Aortic Valve Aortic valve is calcified. The Aortic valve is sclerotic. Aortic valve is trileaflet. Mild to moderat e aortic stenosis. Peak aortic valve gradient is 30.6.mmHg. Highest mean aortic valve gradient is 18. 2mmHg Calculated KEISHA by the continuity equation is 1.02cm2. No aortic regurgitation is present. Mitral Valve Mild mitral annular calcification. No evidence of mitral valve stenosis. Mild to moderate mitral regu rgitation. Tricuspid Valve The tricuspid valve is normal in structure. There is no tricuspid valve stenosis. Trace tricuspid reg urgitation. Pulmonic Valve The pulmonary valve is normal in structure. There is no pulmonic valvular stenosis. Trace pulmonic re gurgitation. Great Vessels The aortic root is normal in size. The ascending aorta is mildly dilated. Aortic arch is normal in ca liber. IVC is normal in size and collapses >50% with inspiration. Pericardium There is no pericardial effusion. 2D Dimensions IVSD d PLAX 1.04 cm M: 0.6-1.2 LV Vol A2C d MOD 140.7 mL LVPW d PLAX 1.04 cm M: 0.6 - 1.2 LV Vol A4C d MOD 166.2 mL LVID d PLAX 5.05 cm M: 4.2 - 5.8 LA vol/ BSA A2C s A-L 40.8 mL/m2 LVDs 3.85 cm M: 2.5 - 4.0 LA vol/ BSA A4C s A-L 36.9 mL/m2 Ao Root d 3.32 cm M: 3.1 - 3.7 LA Vol/ BSA Biplane s A-L 40.0 mL/m2 Ao Asc Diam d 3.79 cm M: 2.6 - 3.4 LA Area A4C s MOD 22.34 cm2 LV EF Teichholz 47.0 % LA Area A2C s MOD 22.81 cm2 LVEF (Thompson's) 47.87 % M: 52 - 72 LV EF A4C MOD 47.5 % LV Volume 115.35 mL M: 62 - 150 LV EF A2C MOD 50.0 % LV Volume Index 58.25 mL/m2 M: 34 - 74 LV EF Biplane MOD 47.9 % LV Vol Biplane MOD 153.3 mL SV 73.40 mL FS 23.60 % SV Index 37.04 mL/m2 M-Mode TAPSE 2.20 cm (M/F) >1.7 LV Diastology MV E' medial 0.054 (>0.07 m/s) E/A Ratio 1.2 LV E/e MED 11.45 (<14) MV E Vmax 0.62 (0.4-1.3 m/s) MV E' lateral 0.045 (>0.1 m/s) MV A Vmax 0.50 (0.4-1.3 m/s) LV E/e LAT 13.60 (<14) MV E/A Ratio 1.17 MV E/E' medial 11.45 MV E/E' lateral 13.62 Aortic Valve LVOT Area 4.01 cm2 AoV Area Vmax 1.02 cm2 LVOT Vmax 0.70 m/s AoV Area/ BSA (Vmax) 0.51 cm2/m2 LVOT Mean Ed. 0.45 m/s KEISHA Mean Ed. 0.88 cm2 LVOT Peak Grad 2.0 mmHg KEISHA Mean Ed. Index 0.45 cm2/m2 LVOT Mean Grad 1.0 mmHg LVOT VTI 0.170 m LVOT Diam s 2.25 cm AoV Vmax 2.76 m/s Velocity Ratio 0.25 AoV Mean Ed. 2.04 m/s AoV Peak Grad 30.6 mmHg LVOT SV 68.00 mL AoV Mean Grad 18.2 mmHg AoV VTI 0.691 m AoV Area VTI 0.98 cm2 AoV Area/ BSA (VTI) 0.50 cm/m2 Mitral Valve MV DT 201 (160-240 msec) MR Vmax 5.30 m/s MV PHT 58 msec MR VTI 2.074 m MV Area PHT 3.77 cm2 MR Peak Grad 112.5 mmHg MV VTI 0.351 m MR Mean Grad 76.3 mmHg MV VTI Annulus 0.342 m MR PISA Radius 0.48 cm MV Area VTI 1.89 (4.0-6.0 cm2) MR EROA 0.10 cm2 MR Aliasing Velocity 0.35 m/s MR PISA 1.47 cm2 Pulmonary Valve PV Vmax 0.96 (0.5-1.5 m/s) RVOT Peak Gr. 1.99 mmHg PV Peak Grad 3.7 mmHg RVOT Mean Gr. 0.85 mmHg PV Mean Grad 2.0 mmHg RVOT VTI 0.161 m PV VTI 0.210 m RVOT Vmax 0.71 m/s Tricuspid Valve TR Peak Grad 22.7 mmHg TR Vmax 2.38 m/s RA Pressure 3.00 mmHg RVSP (TR) 25.7 mmHg
== END ==
PROVIDERS: PCP Family Medicine; Visit Provider Internal Medicine Cardiovascular Disease
DX: I25.10 Atherosclerotic heart disease of native coronary artery without angina pectoris (principal)
CPT/HCPCS: 93306

== ENCOUNTER → 2021-10-05 12:39 | Outpatient (BNVA) | payer MEDICARE, SELFPAY | PROVIDERS: PCP Family Medicine; Visit Provider Internal Medicine Cardiovascular Disease | DX: I25.10 Atherosclerotic heart disease of native coronary artery without angina pectoris (principal); I35.0 Nonrheumatic aortic (valve) stenosis; I10 Essential (primary) hypertension; I25.5 Ischemic cardiomyopathy | CPT/HCPCS: 93005; 99214 ==

== ENCOUNTER 2021-10-05 12:53 | Outpatient (CLI) | payer MEDICARE, SELFPAY ==
--- NOTE | 2021-10-05 12:45 | RT.EKG_ITS ---
APPROVED REPORT Exam: Resting ECG Reason for Exam: Patient Location: O HR:56 bpm ECG Measurements Heart Rate 56 AXIS NM 216 P 52 QRSd 108 QRS -34 QT 464 T 84 QTc 448 Conclusion Sinus rhythm Left anterior fascicular block Probable left ventricular hypertrophy with repolarization abnormalities Anterior wall myocardial infarction age-indeterminate
== END 2021-10-05 12:54 | disposition home or self-care (01) ==
LOC: DI.CARD 12:54
PROVIDERS: PCP Family Medicine; Visit Provider Internal Medicine Cardiovascular Disease
DX: I10 Essential (primary) hypertension (principal); I35.0 Nonrheumatic aortic (valve) stenosis; R94.31 Abnormal electrocardiogram [ECG] [EKG]; I44.4 Left anterior fascicular block
CPT/HCPCS: 93010

== ENCOUNTER → 2021-11-01 13:41 | Outpatient (CLI) | payer MEDICARE, SELFPAY ==
--- NOTE | 2021-11-01 12:30 | DI.RAD_ITS ---
Exam(s) XR LUMBAR SPINE COMPLETE EXAM: XR LUMBAR SPINE COMPLETE CLINICAL HISTORY: LOW BACK PAIN--M54.50--NEW ONSET TECHNIQUE: COMPARISON: No exams were available for comparison FINDINGS: Five views were obtained. There is loss of the intervertebral disc space at L3-4 with associated pro minent endplate hypertrophic changes, findings are consistent with disc degeneration. There is a sli ght right convex lumbar scoliosis. Mild endplate and facet degenerative changes identified through t he remainder of the lumbar spine. No evidence of acute fracture. No gross erosive or destructive lesion. Mild DJD of SI joints noted. IMPRESSION: Degenerative changes most marked at L3-4. RADIATION DOSE DELIVERED: Total DLP
== END ==
PROVIDERS: PCP Family Medicine; Visit Provider Family Medicine
DX: M54.59 Other low back pain (principal); M51.36 Other intervertebral disc degeneration, lumbar region; M53.3 Sacrococcygeal disorders, not elsewhere classified
CPT/HCPCS: 72110

== ENCOUNTER 2021-12-13 11:20 | Emergency (ER) | payer MEDICARE, SELFPAY ==
[2021-12-13 11:28] VITALS: BP 165/82; PULSE 69; RESP 18; TEMP 37; O2SAT 99
--- NOTE | 2021-12-13 11:45 | DI.CT_ITS ---
Exam(s) CT LUMBAR SPINE RECONS CT ABDOMEN PELVIS W EXAM: CT ABDOMEN PELVIS W CLINICAL HISTORY: back pain new onset, flank pain TECHNIQUE: COMPARISON: CT CT LUMBAR SPINE RECONS from 12/13/2021 FINDINGS: CT examination of the abdomen and pelvis was performed with bolus infusion of 100 cc of Omnipaque [address] reconstructions of the lumbosacral spine were also obtained. Images obtained through the lung bases are unremarkable. Note is made of coronary artery calcification. The liver appears normal with no evidence of a focal mass. Spleen is unremarkable in appearance.. Gallbladder and bile ducts are unremarkable. Pancreas is unremarkable in appearance. Adrenals appear normal bilaterally. Kidneys appear normal with no evidence of renal mass, hydronephrosis, or nephrolithiasis. Unremarkab le bladder. There is no evidence of abdominal or pelvic adenopathy. Abdominal aorta is of normal diameter and no abnormality is seen involving major visceral branches.. Appendix is normal. No evidence diverticulitis or bowel obstruction. There are small bilateral fat containing inguinal hernias. Lumbar spine reconstructions show degenerative change throughout the lumbar spine consistent with the patient's age. There is marked loss of height of the intervertebral disc at L4-5 with vacuum disc p henomenon consistent with disc degeneration. There are sclerotic changes in the vertebral endplates adjacent, also consistent with chronic disc degeneration. No evidence of acute fracture. Impression: No evidence of acute intra-abdominal process.. RADIATION DOSE DELIVERED: 853.98 mGy.cm Total DLP 853.98 mGy.cm Total DLP !Error CTDIvol DATA REPOSITORY: All CT scans at this facility are submitted to the National Radiology Data Registry (NRDR) Dose Index Registry (DIR) with the [employer] (ACR). RADIATION OPTIMIZATION: All CT scans at this facility use at least one of these dose optimization te chniques: automated exposure control; mA and/or kV adjustment per patient size (includes targeted exa ms where dose is matched to clinical indication); or iterative reconstruction.
[2021-12-13 12:28] LABS: Abs Immature Grans 0.07 10^3/uL (0.0-0.06); Absolute Basophil Count 0.05 10^3/uL (0.0-0.2); Absolute Eosinophil Count 0.18 10^3/uL (0.0-0.7); Absolute Lymphocyte Count 0.51 10^3/uL (1.2-3.4); Absolute Monocyte Count 0.72 10^3/uL (0.1-0.8); Absolute Neutrophil Count 7.42 10^3/uL (1.2-6.7); Basophils % 0.6; HCT 34.8 % (40.0-50.0); Immature Grans % 0.8; Lymphocytes % 5.7; MCHC 34.5 % (32.0-36.0); MCV 93 fL (80-95); MPV 9.5 fL (8.0-11.0); Neutrophils % 82.9; Platelet Count 193 10^3/uL (130-400); RBC 3.75 10^6/uL (4.36-5.78); RDW 12.2 % (11.8-14.1); RDW-SD 41.5 fL; WBC 8.95 10^3/uL (4.4-10.8)
[2021-12-13] MEDS: oxyCODONE 5 MG TAB PO (12:28)
[2021-12-13] MEDS: Dexamethasone 4 MG/ML VIAL IVP (12:29)
[2021-12-13 12:33] LABS: Bilirubin Negative (Negative); Blood Negative (Negative); Clarity Clear (Clear); Glucose 500 mg/dL (Negative); Ketones Negative (Negative); Leukocyte Esterase Negative (Negative); Nitrite Negative (Negative); Specific Gravity 1.015 (1.005-1.025); Urobilinogen 0.2 EU/dL (Up TO 0.2)
[2021-12-13 12:45] LABS: ALT 29 U/L (16-63); AST 18 U/L (15-37); Albumin 3.7 g/dL (3.4-5.0); Alkaline Phosphatase 58 U/L (46-116); Anion Gap 6.9 mmol/L (3-11); BUN 17 mg/dL (7-18); Bilirubin, Total 0.5 mg/dL (0.2-1.0); CO2 28.1 mmol/L (21.0-32.0); CREATININE 0.8 mg/dL (0.70-1.30); Calcium 8.8 mg/dL (8.5-10.1); Chloride 96 mmol/L (98-107); Estimated GFR 88.91 (mL/min/1.73m2); Glucose 218 mg/dL (74-106); Potassium 4.4 mmol/L (3.5-5.1); Sodium 131 mmol/L (136-145); Total Protein 6.8 g/dL (6.4-8.2)
--- NOTE | 2021-12-13 12:57 | ED.GENADUL_ITS ---
Discharge Plan Disposition Patient Disposition: HOME Condition: Stable Discharge Details Clinical Impression: Acute low back pain Primary Care Provider: Russel Steen ED Provider: Dyan Hoff Home Meds and New Rx's Prescriptions: New prednisone 20 mg tablet 20 mg PO BID Qty: 10 0RF oxycodone-acetaminophen [Percocet] 5-325 mg tablet 0.5 - 1 tab PO Q8H PRNQty: 7 0RF Continued naproxen 500 mg tablet 500 mg PO BID PRN (Reason: pain) Qty: 60 1RF Onglyza 5 mg tablet 5 mg PO DAILY Qty: 90 3RF tamsulosin 0.4 mg capsule 0.8 mg PO DAILY Qty: 180 3RF Rx Instructions: FOR URINARY SX (Incr Dr Dorado for incr retention 04/2016) omeprazole 20 mg capsule,delayed release(/EC) 20 mg PO DAILY Qty: 90 3RF ascorbic acid (vitamin C) 1,000 MG tablet 1,000 mg PO DAILY cholecalciferol (vitamin D3) 1,000 UNIT capsule 1,000 unit PO DAILY Psyllium [Metamucil] 1 EACH packet 1 ea PO BID PRN nitroglycerin [Nitrostat] 0.4 MG tablet, sublingual 0.4 mg Buccal q15m PRNQty: 25 Rx Instructions: if needed for angina aspirin [Aspirin Low-Strength] 81 MG tablet,chewable 81 mg PO DAILY Varicella-Zoster Ge/As01b/Pf [Shingrix Vial Kit] 50 MCG INJ 50 mcg IM ONCE 1 Days Qty: 1 0RF fluticasone propionate 50 mcg/actuation spray,suspension 2 spray NS HS Qty: 9.9 3RF (DME) blood-glucose meter [facility] [place] Rx Instructions .ROUTE .MEDSUPPLY Qty: 1 0RF Rx Instructions: As directed to check blood glucose daily. No insulin. Dispense covered brand. atenolol 25 mg tablet 25 mg PO DAILY Qty: 90 3RF atorvastatin 40 mg tablet 40 mg PO DAILY Qty: 90 3RF Rx Instructions: TO LOWER LDL CHOL UNDER 70 DUE TO CORONARY DISEASE metformin 500 mg tablet extended release 24 hr 1,000 mg PO BID Qty: 270 3RF glipizide 5 mg tablet 5 mg PO BID Qty: 180 3RF Rx Instructions: 0.5 tablet, 20 min prior to meals, twice daily for diabetes E11.65, or as directed losartan 50 mg tablet 50 mg PO DAILY Qty: 90 3RF (DME) FreeStyle Lite Strips Strip 1 ea Miscellaneous TID Qty: 300 3RF Rx Instructions: to control hyperglycemia, E11.65. Discharge Instructions Instructions: Low Back Strain (ED) Additional Instructions: Use walker with ambulation Take Tylenol 650 mg every 6 hours as needed for pain Take the prednisone as prescribed Take oxycodone sparingly, you may take half tablet to a full tablet at night as needed for discomfort Follow-up with your doctor 1 to 2 days for reassessment and return earlier should you have new or worsening complaints I am also placing referral for physical therapy Stand Alone Forms: Physical Therapy Referral Discharge Data Discharge Date/Time-TO BE ENTERED AT DEPARTURE: 12/13/21 13:47 Medical Decision Making Presenting complaints, 50 lumbar spine and abdomen and pelvis were ordered, these do not show evidence of acute abnormality aside from degenerative changes Patient will follow up with pain management He is given medications for home should he need them including a small amount of opiate analgesia, risk of addiction reviewed Referred back to primary care physician Return precautions discussed and patient expressed understanding No clinical evidence of cauda equina syndrome Hemoglobin and hematocrit stable for patient Medical Records Medical records reviewed: Yes I reviewed the patient's medical records. Lab Data Lab results reviewed: Yes I reviewed the patient's lab results. HPI General Date/Time Provider Initiated Documentation: 12/13/21 11:48 . HPI Narrative: This 81-year-old gentleman with back pain that started on 01 November presents with worsening pain over the course of the past 2 weeks. States he had an x-ray and was instructed to follow-up with pain clinic. Denies any known traumatic injury. States the pain radiates down by both legs. Denies any fever or chills. Denies any prior history of similar pain in the past. Denies any strength or sensation change. Denies any changes in bowel or bladder. Denies any groin numbness. Predominantly the pain exacerbated with standing describes it as sharp. Able to ambulate with discomfort at home per patient. Related Data Home Medications Medication Instructions Recorded Confirmed Psyllium [Metamucil] 1 ea PO BID PRN 05/20/12 12/13/21 ascorbic acid (vitamin C) 1,000 mg 1,000 mg PO DAILY 05/20/12 12/13/21 tablet cholecalciferol (vitamin D3) 25 1,000 unit PO DAILY 05/20/12 12/13/21 mcg (1,000 unit) capsule aspirin 81 mg chewable tablet 81 mg PO DAILY 09/15/15 12/13/21 (Aspirin Low-Strength) nitroglycerin 0.4 mg sublingual 0.4 mg buccal q15m PRN #25 tab-caps 09/15/15 12/13/21 tablet (Nitrostat) fluticasone propionate 50 2 spray NS HS #9.9 grams 06/10/19 12/13/21 mcg/actuation nasal spray,suspension blood-glucose meter #1 ea 12/27/19 12/13/21 atenolol 25 mg tablet 25 mg PO DAILY #90 tabs 01/29/21 12/13/21 omeprazole 20 mg capsule,delayed 20 mg PO DAILY #90 caps 03/06/21 12/13/21 release saxagliptin 5 mg tablet (Onglyza) 5 mg PO DAILY #90 tabs 03/06/21 12/13/21 tamsulosin 0.4 mg capsule 0.8 mg PO DAILY #180 tab-caps 03/06/21 12/13/21 atorvastatin 40 mg tablet 40 mg PO DAILY #90 tab-caps 07/26/21 12/13/21 metformin 500 mg tablet,extended 1,000 mg PO BID #270 tab-caps 07/26/21 12/13/21 release 24 hr glipizide 5 mg tablet 5 mg PO BID #180 tab-caps 08/09/21 12/13/21 losartan 50 mg tablet 50 mg PO DAILY #90 tabs 08/10/21 12/13/21 blood sugar diagnostic (FreeStyle #300 strips 10/01/21 12/13/21 Lite Strips) naproxen 500 mg tablet 500 mg PO BID PRN pain #60 tabs 11/01/21 12/13/21 oxycodone-acetaminophen 5 mg-325 0.5 - 1 tab PO Q8H PRN #7 tabs 12/13/21 mg tablet (Percocet) prednisone 20 mg tablet 20 mg PO BID #10 tabs 12/13/21 Previous Rx's Medication Instructions Recorded fluticasone propionate 50 2 spray NS HS #9.9 grams 06/10/19 mcg/actuation nasal spray,suspension blood-glucose meter #1 ea 12/27/19 atenolol 25 mg tablet 25 mg PO DAILY #90 tabs 01/29/21 omeprazole 20 mg capsule,delayed 20 mg PO DAILY #90 caps 03/06/21 release saxagliptin 5 mg tablet (Onglyza) 5 mg PO DAILY #90 tabs 03/06/21 tamsulosin 0.4 mg capsule 0.8 mg PO DAILY #180 tab-caps 03/06/21 atorvastatin 40 mg tablet 40 mg PO DAILY #90 tab-caps 07/26/21 metformin 500 mg tablet,extended 1,000 mg PO BID #270 tab-caps 07/26/21 release 24 hr glipizide 5 mg tablet 5 mg PO BID #180 tab-caps 08/09/21 losartan 50 mg tablet 50 mg PO DAILY #90 tabs 08/10/21 blood sugar diagnostic (FreeStyle #300 strips 10/01/21 Lite Strips) naproxen 500 mg tablet 500 mg PO BID PRN pain #60 tabs 11/01/21 oxycodone-acetaminophen 5 mg-325 0.5 - 1 tab PO Q8H PRN #7 tabs 12/13/21 mg tablet (Percocet) prednisone 20 mg tablet 20 mg PO BID #10 tabs 12/13/21 Allergies Allergy/AdvReac Type Severity Reaction Status Date / Time Penicillins Allergy Unknown SWELLING Verified 12/13/21 11:30 General Stated Complaint: Nk/Back Pain GERMAN: 3 Review of Systems All systems reviewed & are unremarkable except as noted in HPI and below PFSH All Active Problems (Updated 12/13/21 @ 13:30 by QUINTON Benson) Nail dystrophy (Acute) Acute low back pain (Acute) Ischemic cardiomyopathy (Acute) Hyponatremia (Acute) Peripheral neuropathy (Acute) Cataract, bilateral (Acute) 11/08/20 Eye Exam ([place]) Diabetic retinopathy of right eye (Acute ~12/08/20) mild, left normal Incomplete bladder emptying (Acute) Dr. 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) Gastro-esophageal reflux disease without esophagitis (Chronic 06/07/98) s/p esophageal dilatation 1998 Essential hypertension (Chronic 02/21/05) Diabetes mellitus (Chronic 05/30/06) A1C 6.9 01/2010 no retinopathy 10/14/14; goal A1c<7.5 Coronary atherosclerosis of [place] coronary vessel (Chronic 11/08/93) UT AND ANGIOLPLASTY ANKORAGE 11/1993; stent 1996 Actinic keratosis (Chronic 03/11/83) Flori Luu; elsy arias; Dr Cotton 2013 Dr Delatorre [facility] [place], [place] Derm Surgical History Repair of inguinal hernia (03/08/13) left KSD Family History Mother No problems noted. Father , 75 Diabetes Social History Smoking/Tobacco Use Status: Former Tobacco Use Smokeless tobacco user: chewing tobacco Smoking risk assessment performed?: Yes Alcohol Intake: current Alcohol Intake frequency: holidays/special occasions only Drug use: Never Substance use type: does not use Household members: spouse Housing: house Number of Children: 8 Communication Needs: Hard of Hearing and Corrective Lenses Current gender identity: male What is your relationship status?: Panel score (0-1 are the most socially isolated patients): 1 What type of physical activity do you participate in: other Details: treadmil Duration: < 15 minutes/day Frequency: 3-4 times per week Seatbelt use: always Drive intox or ride w/intox lifter/driver: No Working smoke detector in home: Yes Fire extinguisher in home: Yes Carbon monox detector in home: Yes Do you feel safe at home: Yes Do you feel safe in your relationship?: Yes Exam Const Orientation: alert and oriented x3 Eyes Pupils: PERRL Resp Effort & Inspection: normal respiratory effort Cardio Rate: regular rate Other: distal pulses intact GI Other: no abdominal bruit or pulsatile mass Back/Spine/Pelvis Back: no CVA tenderness Back/spine/pelvis image: 1. tenderness Skin General skin exam: no rashes or lesions noted Neuro General: patient alert and patient oriented x3 Extrem Other: antalgic gait, strength and sensation intact distally distal pulses intact Course Vital Signs Vital signs: Vital Signs Temperature 37.0 C 12/13/21 11:28 Pulse 69 12/13/21 11:28 Respiratory Rate 18 12/13/21 11:28 Blood Pressure 165/82 H 12/13/21 11:28 Pulse Oximetry 99 12/13/21 11:28 Temperature 37.0 C 12/13/21 11:28 Temperature Source Temporal Artery Scan 12/13/21 11:28 Pulse 69 12/13/21 11:28 Respiratory Rate 18 12/13/21 11:28 Respiratory Effort Non-Labored 12/13/21 11:30 Blood Pressure 165/82 H 12/13/21 11:28 Blood Pressure Position Sitting 12/13/21 11:28 Pulse Oximetry 99 12/13/21 11:28 Oxygen Delivery Method Room Air 12/13/21 11:28 Oxygen Flow Rate 0 12/13/21 11:28 Pain Level 10 12/13/21 12:28 Comment 12/13/21 11:28 Lab/Test Results Lab/Test Results: Laboratory Tests Range/Units 12/13/21 12/13/21 12/13/21 12:15 12:22 12:22 WBC (4.4-10.8) 10^3/uL 8.95 RBC (4.36-5.78) 10^6/uL 3.75 L Hgb (13.5-17.5) g/dL 12.0 L Hct (40.0-50.0) % 34.8 L MCV (80-95) fL 93 MCH (27.0-33.0) pg 32.0 MCHC (32.0-36.0) % 34.5 RDW (11.8-14.1) % 12.2 Plt Count (130-400) 10^3/uL 193 MPV (8.0-11.0) fL 9.5 Immature Gran % 0.8 Neutrophils % 82.9 Lymphocytes % 5.7 Monocytes % 8.0 Eosinophils % 2.0 Basophils % 0.6 Nucleated RBC % (0.0-0.3) % 0.0 Absolute Neutrophils (1.2-6.7) 10^3/uL 7.42 H Absolute Lymphocytes (1.2-3.4) 10^3/uL 0.51 L Absolute Monocytes (0.1-0.8) 10^3/uL 0.72 Absolute Eosinophils (0.0-0.7) 10^3/uL 0.18 Absolute Basophils (0.0-0.2) 10^3/uL 0.05 Sodium (136-145) mmol/L 131 L Potassium (3.5-5.1) mmol/L 4.4 Chloride (98-107) mmol/L 96 L Carbon Dioxide (21.0-32.0) mmol/L 28.1 Anion Gap (3-11) mmol/L 6.9 BUN (7-18) mg/dL 17 Creatinine (0.70-1.30) mg/dL 0.8 Est GFR (CKD-EPI 2020) (mL/min/1.73m2) 88.91 Glucose (74-106) mg/dL 218 H Calcium (8.5-10.1) mg/dL 8.8 Total Bilirubin (0.2-1.0) mg/dL 0.5 AST (15-37) U/L 18 ALT (16-63) U/L 29 Alkaline Phosphatase (46-116) U/L 58 Total Protein (6.4-8.2) g/dL 6.8 Albumin (3.4-5.0) g/dL 3.7 Urine Color (Yellow) Yellow Urine Clarity (Clear) Clear Urine pH (5-8) 6.0 Ur Specific [place] (1.005-1.025) 1.015 Urine Protein (Negative) mg/dL Negative Urine Ketones (Negative) mg/dL Negative Urine Blood (Negative) Negative Urine Nitrite (Negative) Negative Urine Bilirubin (Negative) Negative Urine Urobilinogen (Up TO 0.2) EU/dL 0.2 Ur Leukocyte Esterase (Negative) Negative Urine Glucose (Negative) mg/dL 500 H
[2021-12-13] MEDS: Omnipaque 350 MG/ML 500 ML BTL-Imaging package IJ (13:05)
--- NOTE | 2021-12-13 13:33 | NUR.NOTE ---
Nursing Note: PT info faxed to PCP for follow up next week for back pain. Debra, ED
[2021-12-13 13:45] VITALS: BP 156/75; PULSE 64; TEMP 37; O2SAT 95
== END 2021-12-13 13:47 | disposition home or self-care (01) ==
PROVIDERS: Emergency Provider Physician Assistant; PCP Family Medicine
DX: M54.50 Low back pain, unspecified (principal); F17.220 Nicotine dependence, chewing tobacco, uncomplicated
CPT/HCPCS: 36415; 80053; 96374; 99285; 74177; 81003; 85025; 99284; J1100

== ENCOUNTER → 2022-02-26 00:51 | Outpatient (CLI) | payer MEDICARE, SELFPAY ==
--- NOTE | 2022-02-26 10:25 | DI.US_ITS ---
APPROVED REPORT EXAM: Comprehensive 2D, Doppler, and color-flow Echocardiogram Patient Location: [facility] Mainline: Samantha Cai RDCS (AE) Indications: CAD, Aortic stenosis Other Information Study Quality: Adequate Conclusion Normal left ventricular wall thickness and chamber size. Estimated ejection fraction is 45 to 50%. There is an apical and anterolateral wall motion abnormality Normal right ventricular size and systolic function Left atrium is mildly dilated. Right atrium is normal in size Aortic valve is calcified. It is probably trileaflet. There is no aortic regurgitation. There is m ild aortic stenosis. Peak gradient is 26, mean 16 mmHg. Calculated aortic valve area is 1.26 cm?? Thickened mitral leaflets. Mild mitral regurgitation Normal tricuspid valve with trace regurgitation Mildly dilated ascending aorta measuring 3.73 cm Normal estimated right ventricular systolic pressure 23 mmHg Wall motion Left Ventricle The left ventricle is normal size. Left ventricular systolic function is mild to moderately decrease d. There is normal left ventricular wall thickness. Regional wall motion abnormalities are noted. Th ere is no ventricular septal defect visualized. LVEF is 46%. Right Ventricle The right ventricle is normal size. The right ventricular systolic function is normal. The RVSP is 23 .2 mmHg. Atria Left atrium is mildly dilated. The right atrium size is normal. The interatrial septum is intact with no evidence for an atrial septal defect. Aortic Valve Aortic valve is calcified. Aortic valve is probably trileaflet. Mild aortic stenosis. Peak aortic jazlyn ve gradient is 25.7mmHg. Highest mean aortic valve gradient is 16.1.mmHg. Calculated KEISHA by the dina nuity equation is 1.28cm2 No aortic regurgitation is present. Mitral Valve Thickened mitral leaflets No evidence of mitral valve stenosis. Mild mitral regurgitation. Tricuspid Valve The tricuspid valve is normal in structure. There is no tricuspid valve stenosis. Trace tricuspid reg urgitation. Pulmonic Valve The pulmonary valve is normal in structure. There is no pulmonic valvular stenosis. Trace pulmonic re gurgitation. Great Vessels The aortic root is normal in size. The ascending aorta is mildly dilated. Aortic arch is normal in ca liber. IVC is normal in size and collapses >50% with inspiration. Pericardium There is no pericardial effusion. 2D Dimensions IVSD d PLAX 0.99 cm M: 0.6-1.2 LV Vol A2C d MOD 178.7 mL LVPW d PLAX 0.96 cm M: 0.6 - 1.2 LV Vol A4C d MOD 143.1 mL LVID d PLAX 5.12 cm M: 4.2 - 5.8 LA vol/ BSA A2C s A-L 47.5 mL/m2 LVDs 3.95 cm M: 2.5 - 4.0 LA Area A2C s MOD 24.96 cm2 Ao Root d 3.29 cm M: 3.1 - 3.7 LV EF A4C MOD 46.8 % RA Area A4C 15.64 cm2 LV EF A2C MOD 47.9 % RA Vol/ BSA A4C s A-L 22.7 mL/m2 LV EF Biplane MOD 46.8 % Ao Asc Diam d 3.72 cm M: 2.6 - 3.4 SV 75.22 mL LV EF Teichholz 44.3 % SV Index 37.77 mL/m2 LVEF (Thompson's) 46.79 % M: 52 - 72 LV Volume 120.75 mL M: 62 - 150 LV Volume Index 60.67 mL/m2 M: 34 - 74 LV Vol Biplane MOD 160.8 mL FS 22.05 % M-Mode TAPSE 2.63 cm (M/F) >1.7 LV Diastology MV E' medial 0.038 (>0.07 m/s) E/A Ratio 1.3 LV E/e MED 17.60 (<14) MV E Vmax 0.67 (0.4-1.3 m/s) MV E' lateral 0.039 (>0.1 m/s) MV A Vmax 0.50 (0.4-1.3 m/s) LV E/e LAT 17.25 (<14) MV E/A Ratio 1.29 MV E/E' medial 17.62 MV E/E' lateral 17.25 Aortic Valve LVOT Area 3.87 cm2 AoV Area Vmax 1.39 cm2 LVOT Vmax 0.91 m/s AoV Area/ BSA (Vmax) 0.70 cm2/m2 LVOT Mean Ed. 0.65 m/s KEISHA Mean Ed. 1.30 cm2 LVOT Peak Grad 3.3 mmHg KEISHA Mean Ed. Index 0.65 cm2/m2 LVOT Mean Grad 1.9 mmHg LVOT VTI 0.208 m LVOT Diam s 2.20 cm AoV Vmax 2.53 m/s Velocity Ratio 0.36 AoV Mean Ed. 1.93 m/s AoV Peak Grad 25.7 mmHg LVOT SV 80.43 mL AoV Mean Grad 16.1 mmHg AoV VTI 0.628 m AoV Area VTI 1.28 cm2 AoV Area/ BSA (VTI) 0.64 cm/m2 Mitral Valve MV DT 151 (160-240 msec) MV PHT 44 msec MV Area PHT 5.02 cm2 MV VTI 0.293 m MV Area VTI 2.74 (4.0-6.0 cm2) Pulmonary Valve PV Vmax 0.90 (0.5-1.5 m/s) RVOT Peak Gr. 1.53 mmHg PV Peak Grad 3.3 mmHg RVOT Mean Gr. 0.90 mmHg PV Mean Grad 1.8 mmHg RVOT VTI 0.128 m PV VTI 0.195 m RVOT Vmax 0.62 m/s Tricuspid Valve TR Peak Grad 20.2 mmHg TR Vmax 2.25 m/s RA Pressure 3.00 mmHg RVSP (TR) 23.2 mmHg
== END ==
PROVIDERS: PCP Family Medicine; Visit Provider Internal Medicine Cardiovascular Disease
DX: I25.10 Atherosclerotic heart disease of native coronary artery without angina pectoris (principal); I35.0 Nonrheumatic aortic (valve) stenosis
CPT/HCPCS: 93306

== ENCOUNTER 2022-04-09 03:15 | Outpatient (CLI) | payer MEDICARE, SELFPAY ==
[2022-04-09 08:47] LABS: Calculated LDL 43 mg/dL (<100); Cholesterol 109 mg/dL (<200); HDL Cholesterol 55 mg/dL (40-60); Triglyceride 57 mg/dL (<150)
== END 2022-04-09 03:16 | disposition home or self-care (01) ==
LOC: LBO 03:16
PROVIDERS: PCP Family Medicine; Visit Provider Family Medicine
DX: I25.10 Atherosclerotic heart disease of native coronary artery without angina pectoris (principal); I10 Essential (primary) hypertension
CPT/HCPCS: 36415; 80061

== ENCOUNTER 2022-08-12 03:35 | Outpatient (CLI) | payer MEDICARE, SELFPAY ==
[2022-08-12 10:38] LABS: Anion Gap 7.1 mmol/L (3-11); BUN 16 mg/dL (7-18); CO2 27.9 mmol/L (21.0-32.0); CREATININE 0.9 mg/dL (0.70-1.30); Calcium 8.9 mg/dL (8.5-10.1); Chloride 95 mmol/L (98-107); Glucose 253 mg/dL (74-106); Potassium 4.9 mmol/L (3.5-5.1); Sodium 130 mmol/L (136-145)
== END 2022-08-12 03:36 | disposition home or self-care (01) ==
LOC: LBO 03:35
PROVIDERS: Absent Provider Family Medicine; PCP Family Medicine; Referring Provider Family Medicine; Visit Provider Family Medicine
DX: E87.1 Hypo-osmolality and hyponatremia (principal); E11.9 Type 2 diabetes mellitus without complications; I10 Essential (primary) hypertension
CPT/HCPCS: 36415; 80048

== ENCOUNTER → 2022-10-04 10:31 | Outpatient (BNVA) | payer MEDICARE, SELFPAY | PROVIDERS: PCP Family Medicine; Visit Provider Internal Medicine Cardiovascular Disease | DX: I25.10 Atherosclerotic heart disease of native coronary artery without angina pectoris (principal); I35.0 Nonrheumatic aortic (valve) stenosis; I10 Essential (primary) hypertension; I25.5 Ischemic cardiomyopathy | CPT/HCPCS: 99214 ==

== ENCOUNTER 2023-01-04 16:05 | Inpatient (IN) | payer MEDICARE, SELFPAY ==
[2023-01-04] VITALS (42 sets, daily range): BP systolic 156–176; BP diastolic 76–91; PULSE 60–81; RESP 7–25; TEMP 36.5–36.8; O2SAT 94–100
--- NOTE | 2023-01-04 | DI.CT_ITS ---
Exam(s) CT CERVICAL SPINE WO CT BRAIN NECK CTA EXAM: CT BRAIN NECK CTA CLINICAL HISTORY: B leg weakness, ataxia. TECHNIQUE: Imaging Protocol: Axial CT angiography was performed with multi-slice acquisition and mu lti-planar and 3D reconstructions. CONTRAST MATERIAL: Intravenous: Omnipaque 350 Contrast volume:100 ml COMPARISON: CT CT LUMBAR SPINE RECONS from 12/13/[address] CERVICAL SPINE WO from 01/04/2023 FINDINGS: CT Head W/O and W contrast: Ventricles and Extra axial spaces: Normal in size and morphology for the patient's age and degree of atrophy.. Hemorrhage: None. Cerebral parenchyma: Atrophy and chronic white matter changes of small vessel disease. Lacunar infar ct, old and left caudate. Midline shift: None. Brainstem/Cerebellum: Normal. Calvarium: Normal. Visualized Paranasal sinuses/Mastoids: Clear. Soft Tissues: Unremarkable. Enhancement: Normal. CTA Brain W: Internal Carotid Arteries: Petrous: Normal. Cavernous: Normal. Cerebral: Normal. Middle Cerebral Arteries: Right: No aneurysm, occlusion or significant stenosis. Left: No aneurysm, occlusion or significant stenosis. Anterior Cerebral Arteries: Right: No aneurysm, occlusion or significant stenosis. Left: No aneurysm, occlusion or significant stenosis. Posterior cerebral Arteries: Right: No aneurysm, occlusion or significant stenosis. Left: No aneurysm, occlusion or significant stenosis. Vertebral Arteries: Right: No aneurysm, occlusion or significant stenosis. Mild narrowing distally. Left: No aneurysm, occlusion or significant stenosis. Basilar Artery: No aneurysm, occlusion or significant stenosis. CTA Neck W: Common Carotid: Right: No dissection, occlusion or significant stenosis. Left: No dissection, occlusion or significant stenosis. External Carotid: Right: No dissection, occlusion or significant stenosis. Left: No dissection, occlusion or significant stenosis. Internal Carotid: Right: Mild plaque at bulb and proximal right internal carotid artery. No dissection, occlusion or s ignificant stenosis. Left: Mild plaque at bulb and proximal left internal carotid artery. No dissection, occlusion or sig nificant stenosis. Vertebral Artery: Right: No dissection, occlusion or significant stenosis. Left: No dissection, occlusion or significant stenosis. Lung Apices: Normal. Bones: No acute abnormality. Degenerative changes of the cervical spine. Soft Tissues: Normal. IMPRESSION: 1. Mild narrowing distally of the right vertebral artery, otherwise normal CTA examination of the [facility] [place]. 2. Head CT: Atrophy and chronic white matter changes. Old tiny left caudate lacunar infarct. No acu te abnormality. 3. CTA neck: Mild calcific plaque at the common carotid bulbs and proximal internal carotid arteries without significant stenosis. No evidence of dissection or occlusion. RADIATION DOSE DELIVERED: Total DLP DATA REPOSITORY: All CT scans at this facility are submitted to the National Radiology Data Registry (NRDR) Dose Index Registry (DIR) with the [employer] (A[employer]). RADIATION OPTIMIZATION: All CT scans at this facility use at least one of these dose optimization te chniques: automated exposure control; mA and/or kV adjustment per patient size (includes targeted exa ms where dose is matched to clinical indication); or iterative reconstruction.
--- NOTE | 2023-01-04 16:12 | W.ED.GENAD ---
Discharge Plan Disposition Patient Disposition: Admit to [facility] Discharge Details Clinical Impression: Apraxia following CVA (cerebrovascular accident) Primary Care Provider: Russel Steen ED Provider: Ailyn Mendieta Home Meds and New Rx's Prescriptions: No Action naproxen 500 mg tablet 500 mg PO BID PRN (Reason: pain) Qty: 60 1RF omeprazole 20 mg capsule,delayed release(DR/EC) 20 mg PO DAILY Qty: 90 3RF Levemir FlexPen 100 unit/mL (3 mL) insulin pen 10 unit subcut QAM Qty: 15 3RF (DME) pen needle, diabetic [Pen Needle] 31 gauge x 5/16 needle See Rx Instructions .ROUTE .MEDSUPPLY Qty: 100 3RF Rx Instructions: As directed to daily. Dispense covered brand. ascorbic acid (vitamin C) 1,000 MG tablet 1,000 mg PO DAILY cholecalciferol (vitamin D3) 1,000 UNIT capsule 1,000 unit PO DAILY Psyllium [Metamucil] 1 EACH packet 1 ea PO BID PRN nitroglycerin [Nitrostat] 0.4 MG tablet, sublingual 0.4 mg Buccal q15m PRNQty: 25 Rx Instructions: if needed for angina aspirin [Aspirin Low-Strength] 81 MG tablet,chewable 81 mg PO DAILY (DME) blood-glucose meter Misc See Rx Instructions .ROUTE .MEDSUPPLY Qty: 1 0RF Rx Instructions: As directed to check blood glucose daily. No insulin. Dispense covered brand. (DME) FreeStyle Lite Strips Strip 1 ea Miscellaneous TID Qty: 300 3RF Rx Instructions: to control hyperglycemia, E11.65. test twice daily metformin 500 mg tablet extended release 24 hr 1,000 mg PO BID Qty: 270 3RF losartan 50 mg tablet 50 mg PO DAILY Qty: 90 3RF atorvastatin 40 mg tablet 40 mg PO DAILY Qty: 90 3RF Rx Instructions: TO LOWER LDL CHOL UNDER 70 DUE TO CORONARY DISEASE atenolol 25 mg tablet 25 mg PO DAILY Qty: 90 3RF tamsulosin 0.4 mg capsule 0.8 mg PO DAILY Qty: 180 3RF Rx Instructions: FOR URINARY SX (Incr Dr Dorado for incr retention 04/2016) glipizide 5 mg tablet 5 mg PO BID Qty: 180 3RF Rybelsus 3 mg tablet 3 mg PO DAILY Medical Decision Making Pts. work up negative for acute disease so we got him up to ambulate him. He can stand on his own but says he still feels weak. When he walks he feels like his legs will give out. More importantly his legs do not seem to be working right; he is crossing his feet and almost stepping on his own feet. I am wondering about a posterior fossa CVA. We will do a CT and CTA; same was discussed with he and family. Renal fn is good, his is getting IVF. 2119. Case was discussed with Dr. Naqvi from neurology at [facility]. Radiologist had read prominent ventricles. Usually something like normal pressure hydrocephalus develops over time and does not come on suddenly. Also the patient does not have any altered mental status or urinary incontinence. She concurs with the likelihood that the ataxia or apraxia is likely due to a posterior fossa CVA. She concurs that the patient was not a candidate for tPA and or large vessel retrieval. I have given the patient aspirin in the ED. She recommended an MRI of his brain and C-spine be done on Friday. They have no beds to take the patient at this time. All of this was discussed with the patient, his sister, and his . Case was discussed with Dr. Winter who will admit the patient. Medical Records Medical records reviewed: Yes I reviewed the patient's medical records. Imaging Data Radiologic Study: Imaging: X-Ray Radiologist's impression: Patient Name: Ken Schmidt Unit #: [id number] Loc: ER Ordering Provider: Status: PRE ER Primary Care Provider: Russel Steen DO Date of Exam: 01/04/23 Sex: M : 1940 Age: 82 Exam(s) PROCEDURE INFORMATION: Exam: XR Chest Exam date and time: 01/04/2023 5:15 PM Age: 82 years old Clinical indication: Other: Weakness TECHNIQUE: Imaging protocol: Radiologic exam of the chest. Views: 2 views. COMPARISON: CR CHEST 2 VIEWS PA,LAT 02/06/2017 2:00 PM FINDINGS: Lungs: Small patchy density in the right mid lung. Pleural spaces: No pleural effusion. No pneumothorax. Heart/Mediastinum: Unremarkable Bones/joints: No significant abnormality IMPRESSION: Mild patchy density in the right mid lung can be due to atelectasis versus pneumonia in the proper clinical setting Dictated and Authenticated by: Justus Mendoza MD. Ordering:PAPO Robertson MD Radiologic Study #2: Imaging: CT Scan Radiologist's impression: Patient Name: Ken Schmidt Unit #: [id number] Loc: ER Ordering Provider: Status: REG ER Primary Care Provider: Russel Steen DO Date of Exam: 01/04/23 Sex: M : 1940 Age: 82 Exam(s) PROCEDURE INFORMATION: Exam: CTA Head Without And With Contrast, Arteriography Exam date and time: 01/04/2023 18:48 Age: 82 years old Clinical indication: Patient HX: Bilateral leg weakness, ataxia TECHNIQUE: Imaging protocol: Computed tomographic angiography of the head without and with contrast. Exam focused on the arteries. 3D rendering (Not supervised by radiologist): MIP and/or 3D reconstructed images were created by the technologist. Contrast material: OMNIPAQUE 350; Contrast volume: 85 ml; Contrast route: INTRAVENOUS (IV); COMPARISON: CR XR CERVICAL SPINE COMP 4-5V 05/03/2020 12:16 FINDINGS: ANTERIOR CIRCULATION: Right internal carotid artery: Intracranial segment is patent with no significant stenosis. No aneurysm. Right middle cerebral artery: No occlusion or significant stenosis. No aneurysm. Right anterior cerebral artery: No occlusion or significant stenosis. No aneurysm. Left internal carotid artery: Intracranial segment is patent with no significant stenosis. No aneurysm. Left middle cerebral artery: No occlusion or significant stenosis. No aneurysm. Left anterior cerebral artery: No occlusion or significant stenosis. No aneurysm. POSTERIOR CIRCULATION: Right vertebral artery: Atherosclerosis and multifocal stenosis of right vertebral artery without aneurysm. Left vertebral artery: No occlusion or significant stenosis. No aneurysm. Basilar artery: No occlusion or significant stenosis. No aneurysm. Right posterior cerebral artery: No occlusion or significant stenosis. No aneurysm. Left posterior cerebral artery: No occlusion or significant stenosis. No aneurysm. HEAD: Brain: Atrophy and chronic appearing white matter changes. 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 No edema or hemorrhage. Cerebral ventricles: Dilation of the ventricular system greater than expected for the degree of atrophy. Bones/joints: No acute fracture. Paranasal sinuses: No significant appearing sinusitis. Mastoid air cells: No mastoid effusion. Soft tissues: No suspicious lesions. IMPRESSION: No large vessel occlusion. Consider normal pressure hydrocephalus. PROCEDURE INFORMATION: Exam: CTA Neck Without And With Contrast Exam date and time: 01/04/2023 18:48 Age: 82 years old Clinical indication: Patient HX: Bilateral leg weakness, ataxia TECHNIQUE: Imaging protocol: Computed tomographic angiography of the neck without and with contrast. Exam focused on the cervical segments of the vasculature. 3D rendering (Not supervised by radiologist): MIP and/or 3D reconstructed images were created by the technologist. Contrast material: OMNIPAQUE 350; Contrast volume: 85 ml; Contrast route: INTRAVENOUS (IV); COMPARISON: CR XR CERVICAL SPINE COMP 4-5V 05/03/2020 12:16 FINDINGS: Right common carotid artery: No significant stenosis. No dissection or occlusion. Right internal carotid artery: Extracranial segment is patent with no significant stenosis. No dissection or occlusion. Right external carotid artery: No occlusion or significant stenosis. Left common carotid artery: No significant stenosis. No dissection or occlusion. Left internal carotid artery: Extracranial segment is patent with no significant stenosis. No dissection or occlusion. Left external carotid artery: No occlusion or significant stenosis. Right vertebral artery: No significant stenosis. No dissection or occlusion. Left vertebral artery: No significant stenosis. No dissection or occlusion. Soft tissues: No significant soft tissue swelling. Bones/joints: Degenerative changes in the spine. No acute fracture or subluxation. IMPRESSION: No acute arterial pathology. Patent carotid and vertebral system bilaterally. Dictated and Authenticated by: Maryanne Coburn MD. Ordering:PAPO Robertson MD ECG Data Attestation: I personally reviewed and interpreted this ECG (s) as follows: (Normal sinus rhythm at 65, left bundle branch block, Sgarbossa criteria as well as Blank criteria negative., No change versus 10/05/2021) HPI General Date/Time Provider Initiated Documentation: 01/04/23 16:10. HPI Narrative: This 82-year-old male patient presents with a chief complaint of bilateral leg weakness that began around 11:30 or 12 this morning. Patient reports that he was on his 4 patel and went out into the [place] to dump his compost. Following this he grabbed an outdoor camera as he wanted to change the battery in it. He was having a little bit of difficulty with this and stood up to get back on the 4 patel but his legs would not hold his weight. He says he sat back down on his own. He did not faint or fall. There was no trauma. He said he tried to crawl back up onto the 4 patel and was able to do this. He did feel like he might of injured his right lower rib while doing this. He heard a pop. He has minimal pain there. He was able to drive the 4 patel to his shed but once again was not able to stand up so he drove home. His had to help him up the stairs and let him use her walker. Once again his leg legs gave out and he landed on his knees. He denies any injury. The patient reports that he has peripheral neuropathy or decreased sensation on the bottom of his feet that is chronic. He has no other numbness or weakness. He has no back pain or difficulty with bowel or bladder dysfunction. He has no headache or other focal neurologic deficits. He has had no fever or URI symptoms. There is no chest pain or shortness of breath. He has no belly pain. There is no nausea, vomiting, diarrhea, or dysuria. He has no pedal edema or calf pain. There is no dizziness. Related Data Home Medications Medication Instructions Recorded Confirmed Psyllium [Metamucil] 1 ea PO BID PRN 05/20/12 01/04/23 ascorbic acid (vitamin C) 1,000 mg 1,000 mg PO DAILY 05/20/12 01/04/23 tablet cholecalciferol (vitamin D3) 25 1,000 unit PO DAILY 05/20/12 12/23/22 mcg (1,000 unit) capsule aspirin 81 mg chewable tablet 81 mg PO DAILY 09/15/15 01/04/23 (Aspirin Low-Strength) nitroglycerin 0.4 mg sublingual 0.4 mg buccal q15m PRN #25 tab-caps 09/15/15 01/04/23 tablet (Nitrostat) naproxen 500 mg tablet 500 mg PO BID PRN pain #60 tabs 11/01/21 01/04/23 blood-glucose meter #1 ea 01/24/22 12/23/22 blood sugar diagnostic (FreeStyle #300 strips 04/04/23 10/16/23 Lite Strips) metformin 500 mg tablet,extended 1,000 mg (2 x 500 mg) PO BID #270 07/26/22 01/04/23 release 24 hr tab-caps atorvastatin 40 mg tablet 40 mg PO DAILY #90 tab-caps 08/08/22 01/04/23 losartan 50 mg tablet 50 mg PO DAILY #90 tabs 08/08/22 01/04/23 atenolol 25 mg tablet 25 mg PO DAILY #90 tabs 08/13/22 01/04/23 tamsulosin 0.4 mg capsule 0.8 mg (2 x 0.4 mg) PO DAILY #180 09/30/22 01/04/23 tab-caps glipizide 5 mg tablet 5 mg PO BID #180 tab-caps 10/10/22 01/04/23 omeprazole 20 mg capsule,delayed 20 mg PO DAILY #90 caps 11/19/22 01/04/23 release insulin detemir U-100 100 unit/mL 10 unit (0.1 mL) subcut QAM #15 mL 12/23/22 01/04/23 (3 mL) subcutaneous pen (Levemir FlexPen) pen needle, diabetic 31 gauge x #100 ea 12/23/22 12/23/2207/23 (Pen Needle) semaglutide 3 mg tablet (Rybelsus) 3 mg PO DAILY 01/04/23 01/04/23 Previous Rx's Medication Instructions Recorded naproxen 500 mg tablet 500 mg PO BID PRN pain #60 tabs 11/01/21 blood-glucose meter #1 ea 01/24/22 blood sugar diagnostic (FreeStyle #300 strips 06/11/22 Lite Strips) metformin 500 mg tablet,extended 1,000 mg (2 x 500 mg) PO BID #270 07/26/22 release 24 hr tab-caps atorvastatin 40 mg tablet 40 mg PO DAILY #90 tab-caps 08/08/22 losartan 50 mg tablet 50 mg PO DAILY #90 tabs 08/08/22 atenolol 25 mg tablet 25 mg PO DAILY #90 tabs 08/13/22 tamsulosin 0.4 mg capsule 0.8 mg (2 x 0.4 mg) PO DAILY #180 09/30/22 tab-caps glipizide 5 mg tablet 5 mg PO BID #180 tab-caps 10/10/22 omeprazole 20 mg capsule,delayed 20 mg PO DAILY #90 caps 11/19/22 release insulin detemir U-100 100 unit/mL 10 unit (0.1 mL) subcut QAM #15 mL 12/23/22 (3 mL) subcutaneous pen (Levemir FlexPen) pen needle, diabetic 31 gauge x #100 ea 12/23/2207/23 (Pen Needle) Allergies Allergy/AdvReac Type Severity Reaction Status Date / Time Penicillins Allergy Unknown SWELLING Verified 12/23/22 14:24 lactose AdvReac Diarrhea Verified 12/23/22 14:24 General Stated Complaint: GenMedical GERMAN: 3 Review of Systems All systems reviewed & are unremarkable except as noted in HPI and below Constitutional Constitutional: Reports as per HPI, Denies chills, Denies fever(s) and Denies headache(s) Eyes Eyes: Denies blurry vision and Reports other (no redness) ENT Ears, Nose, Mouth, and Throat: Denies dizziness, Denies otalgia, Denies headache(s), Denies nasal congestion, Denies nasal discharge, Denies neck pain and Denies odynophagia Cardiovascular Cardiovascular: Denies chest pain, Denies palpitations and Denies dyspnea Respiratory Respiratory: Denies cough and Denies dyspnea Gastrointestinal Gastrointestinal: Denies abdominal pain, Denies diarrhea, Denies nausea, Denies odynophagia and Denies vomiting Genitourinary Genitourinary: Denies difficulty urinating and Denies dysuria Musculoskeletal Musculoskeletal: Denies myalgias, Denies muscle weakness, Denies neck pain and Denies numbness Integumentary/Breasts Skin/Breast: Denies erythema and Denies rash Neurologic Neurologic: Denies dizziness, Denies headache(s) and Denies numbness Endocrine Endocrine: Denies palpitations PFSH All Active Problems (Updated 01/04/23 @ 21:36 by Leonidas Winter) Ataxia due to acute cerebrovascular disease (Acute) Apraxia following CVA (cerebrovascular accident) (Acute) Diabetes mellitus with peripheral angiopathy (Acute) Onychomycosis (Acute) Type 2 diabetes mellitus with peripheral neuropathy (Acute) Chronic seborrheic dermatitis (Acute) Nail dystrophy (Acute) Ischemic cardiomyopathy (Chronic) Hyponatremia (Acute) Peripheral neuropathy (Acute) Cataract, bilateral (Acute) 11/08/20 [facility] Exam ([facility]) Diabetic retinopathy of right eye (Acute ~12/08/20) mild, left normal Incomplete bladder emptying (Acute) Dr. 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) Gastro-esophageal reflux disease without esophagitis (Chronic 06/07/98) s/p esophageal dilatation 1998 Essential hypertension (Chronic 02/21/05) Diabetes mellitus (Chronic 05/30/06) A1C 6.9 01/2010 no retinopathy 10/14/14; goal A1c<7.5 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 Father , 75 Diabetes Social History Smoking/Tobacco Use Status: Former Tobacco Use Smokeless tobacco user: chewing tobacco Smoking risk assessment performed?: Yes Alcohol Intake: current Alcohol Intake frequency: holidays/special occasions only Drug use: Never Substance use type: does not use Household members: spouse Housing: house Number of Children: 8 Communication Needs: Hard of Hearing and Corrective Lenses Current gender identity: male What is your relationship status?: Panel score (0-1 are the most socially isolated patients): 1 What type of physical activity do you participate in: other Details: treadmil Duration: < 15 minutes/day Frequency: 3-4 times per week Seatbelt use: always Drive intox or ride w/intox 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 Working smoke detector in home: Yes Fire extinguisher in home: Yes Carbon monox detector in home: Yes Do you feel safe at home: Yes Do you feel safe in your relationship?: Yes Exam Const General: no acute distress, well developed, well groomed and not in acute distress Nutritional Appearance: well nourished Orientation: alert and oriented x3 HENMT Head: normocephalic and atraumatic Ears: external ears normal Mouth: oropharynx normal and moist mucous membranes Throat: posterior oropharynx normal Eyes Conjunctivae: conjunctivae normal Neck Neck: full ROM and supple Chest Chest: normal inspection of the chest Resp Effort & Inspection: normal respiratory effort Auscultation: clear to auscultation bilaterally Cardio Rate: regular rate Rhythm: regular rhythm Heart Sounds: murmur (loudest L lateral, pt. says he has had same since ) and no rubs GI Inspection: normal to inspection Palpation: soft, nontender and other (non distended) Auscultation: normal bowel sounds Skin General skin exam: no rashes or lesions noted and other (pink, warm, dry) Neuro General: patient alert, patient awake and patient oriented x3 Cranial Nerves: CN's II-XI intact bilaterally Cognition: normal cognition Speech: speech normal Gait: antalgic and ataxic Motor: muscle tone normal throughout, strength 5/5 throughout, no pronator drift and other (SUNG) Sensory Exam: no sensory deficits noted Coordination: nvabhx-ic-oald test normal and Romberg test normal Extrem General: normal to inspection, full ROM and pedal edema present Psych Mental Status: mental status grossly normal Speech and Movement: speech and movement normal Affect: normal affect Course Vital Signs Vital signs: Vital Signs Temperature 36.8 C 01/04/23 15:59 Pulse 60 01/04/23 15:59 Respiratory Rate 18 01/04/23 15:59 Blood Pressure 176/76 H 01/04/23 15:59 Pulse Oximetry 98 01/04/23 15:59 Temperature 36.8 C 01/04/23 15:59 Temperature Source Oral 01/04/23 15:59 Pulse 60 01/04/23 15:59 Respiratory Rate 18 01/04/23 15:59 Blood Pressure 176/76 H 01/04/23 15:59 Blood Pressure Position Supine 01/04/23 15:59 Pulse Oximetry 98 01/04/23 15:59 Oxygen Delivery Method Room Air 01/04/23 15:59 Oxygen Flow Rate 0 01/04/23 15:59
--- NOTE | 2023-01-04 16:30 | RT.EKG_ITS ---
APPROVED REPORT Exam: Resting ECG Reason for Exam: weak Patient Location: E HR:65 bpm ECG Measurements Heart Rate 65 AXIS WY 210 P 59 QRSd 129 QRS -38 QT 435 T 130 QTc 452 Conclusion Sinus rhythm...normal P axis, V-rate 60- 99 Left bundle branch block...QRSd>120, broad/notched R Sgarbossa neg, no major change vs 10/05/21
--- NOTE | 2023-01-04 16:30 | DI.RAD_ITS ---
Exam(s) XR CHEST 2V PA LATERAL EXAM: XR CHEST 2V PA LATERAL CLINICAL HISTORY: weakness TECHNIQUE: 2D digital imaging was performed. COMPARISON: CR CHEST 2 VIEWS PA,LAT from 02/06/2017 FINDINGS: AP view limited by suboptimal pulmonary inflation. Leads overlie the chest. There is a question of a area increased density in the mid right lung field on the AP view. No definite corresponding abno rmality on the lateral view. HEART: Normal size. Aorta: Ectatic. PULMONARY VASCULATURE: Normal. LUNGS: Clear. PLEURAL SPACE: No pleural effusion or pneumothorax. BONE:Unremarkable for age. IMPRESSION: Limited exam. Question of atelectasis versus infiltrate in the mid right lung. DATA REPOSITORY: RADIATION DOSE DELIVERED:
[2023-01-04 16:57] LABS: Abs Immature Grans 0.05 10^3/uL (0.0-0.06); Absolute Basophil Count 0.02 10^3/uL (0.0-0.2); Absolute Eosinophil Count 0.07 10^3/uL (0.0-0.7); Absolute Lymphocyte Count 0.54 10^3/uL (1.2-3.4); Absolute Monocyte Count 0.58 10^3/uL (0.1-0.8); Absolute Neutrophil Count 9.95 10^3/uL (1.2-6.7); Basophils % 0.2; Eosinophils % 0.6; HCT 34.9 % (40.0-50.0); HGB 12.3 g/dL (13.5-17.5); Immature Grans % 0.4; Lymphocytes % 4.8; MCH 31.7 pg (27.0-33.0); MCHC 35.2 % (32.0-36.0); MCV 90 fL (80-95); Monocytes % 5.2; Neutrophils % 88.8; Platelet Count 211 10^3/uL (130-400); RBC 3.88 10^6/uL (4.36-5.78); RDW 12.2 % (11.8-14.1); WBC 11.21 10^3/uL (4.4-10.8)
[2023-01-04 17:14] LABS: ALT 20 U/L (16-63); AST 13 U/L (15-37); Albumin 3.7 g/dL (3.4-5.0); Alkaline Phosphatase 72 U/L (46-116); Anion Gap 4.6 mmol/L (3-11); BUN 11 mg/dL (7-18); Bilirubin, Total 0.5 mg/dL (0.2-1.0); CO2 28.4 mmol/L (21.0-32.0); CREATININE 0.8 mg/dL (0.70-1.30); Calcium 8.9 mg/dL (8.5-10.1); Chloride 96 mmol/L (98-107); Estimated GFR 88.36 (mL/min/1.73m2); Glucose 119 mg/dL (74-106); Magnesium 1.6 mg/dL (1.8-2.4); Potassium 3.8 mmol/L (3.5-5.1); Sodium 129 mmol/L (136-145); Troponin I 50 ng/L (<or=60)
[2023-01-04 17:27] LABS: Bilirubin Negative (Negative); Blood Negative (Negative); Clarity Clear (Clear); Glucose Negative (Negative); Ketones Negative (Negative); Leukocyte Esterase Negative (Negative); Nitrite Negative (Negative); Urobilinogen 0.2 mg/dL (Up to 0.2)
--- NOTE | 2023-01-04 17:29 | DI.VRAD_ITS ---
PROCEDURE INFORMATION: Exam: XR Chest Exam date and time: 01/04/2023 5:15 PM Age: 82 years old Clinical indication: Other: Weakness TECHNIQUE: Imaging protocol: Radiologic exam of the chest. Views: 2 views. COMPARISON: CR CHEST 2 VIEWS PA,LAT 02/06/2017 2:00 PM FINDINGS: Lungs: Small patchy density in the right mid lung. Pleural spaces: No pleural effusion. No pneumothorax. Heart/Mediastinum: Unremarkable Bones/joints: No significant abnormality IMPRESSION: Mild patchy density in the right mid lung can be due to atelectasis versus pneumonia in the proper clinical setting Dictated and Authenticated by: Justus Mendoza MD. Ordering:PAPO Robertson MD
[2023-01-04] MEDS: Normal Saline 1,000 ML 500 ML IV (17:35)
[2023-01-04 17:36] LABS: WBC Negative HPF (0-5)
[2023-01-04 17:37] LABS: Bacteria Negative HPF (Negative); C & S Indicated? No; Crystals Negative HPF (Negative); Epithelial Cells Negative HPF (Negative); Mucus Negative (Negative)
--- NOTE | 2023-01-04 18:00 | RT.EKG_ITS ---
APPROVED REPORT Exam: Resting ECG Reason for Exam: heartburn Patient Location: E HR:63 bpm ECG Measurements Heart Rate 63 AXIS CA 215 P 68 QRSd 128 QRS -42 QT 424 T 124 QTc 438 Conclusion Sinus rhythm...normal P axis, V-rate 60- 99 Atrial premature complex...SV complex w/ short R-R interval Borderline prolonged CA interval...CA >212, V-rate 50- 90 LVH with secondary repolarization abnormality...multi-LVH criteria, abnrm ST-T Probable anterior infarct, age indeterminate...Q >35mS, T neg, V2-V5 No interum change. PVC
[2023-01-04] MEDS: Normal Saline - Diluent 50 ML VIAL IJ (18:48)
[2023-01-04] MEDS: Omnipaque 350 MG/ML 100 ML BTL IJ (18:51)
--- NOTE | 2023-01-04 19:36 | DI.VRAD_ITS ---
PROCEDURE INFORMATION: Exam: CTA Head Without And With Contrast, Arteriography Exam date and time: 01/04/2023 18:48 Age: 82 years old Clinical indication: Patient HX: Bilateral leg weakness, ataxia TECHNIQUE: Imaging protocol: Computed tomographic angiography of the head without and with contrast. Exam focused on the arteries. 3D rendering (Not supervised by radiologist): MIP and/or 3D reconstructed images were created by the technologist. Contrast material: OMNIPAQUE 350; Contrast volume: 85 ml; Contrast route: INTRAVENOUS (IV); COMPARISON: CR XR CERVICAL SPINE COMP 4-5V 05/03/2020 12:16 FINDINGS: ANTERIOR CIRCULATION: Right internal carotid artery: Intracranial segment is patent with no significant stenosis. No aneurysm. Right middle cerebral artery: No occlusion or significant stenosis. No aneurysm. Right anterior cerebral artery: No occlusion or significant stenosis. No aneurysm. Left internal carotid artery: Intracranial segment is patent with no significant stenosis. No aneurysm. Left middle cerebral artery: No occlusion or significant stenosis. No aneurysm. Left anterior cerebral artery: No occlusion or significant stenosis. No aneurysm. POSTERIOR CIRCULATION: Right vertebral artery: Atherosclerosis and multifocal stenosis of right vertebral artery without aneurysm. Left vertebral artery: No occlusion or significant stenosis. No aneurysm. Basilar artery: No occlusion or significant stenosis. No aneurysm. Right posterior cerebral artery: No occlusion or significant stenosis. No aneurysm. Left posterior cerebral artery: No occlusion or significant stenosis. No aneurysm. HEAD: Brain: Atrophy and chronic appearing white matter changes. 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 No edema or hemorrhage. Cerebral ventricles: Dilation of the ventricular system greater than expected for the degree of atrophy. Bones/joints: No acute fracture. Paranasal sinuses: No significant appearing sinusitis. Mastoid air cells: No mastoid effusion. Soft tissues: No suspicious lesions. IMPRESSION: No large vessel occlusion. Consider normal pressure hydrocephalus. PROCEDURE INFORMATION: Exam: CTA Neck Without And With Contrast Exam date and time: 01/04/2023 18:48 Age: 82 years old Clinical indication: Patient HX: Bilateral leg weakness, ataxia TECHNIQUE: Imaging protocol: Computed tomographic angiography of the neck without and with contrast. Exam focused on the cervical segments of the vasculature. 3D rendering (Not supervised by radiologist): MIP and/or 3D reconstructed images were created by the technologist. Contrast material: OMNIPAQUE 350; Contrast volume: 85 ml; Contrast route: INTRAVENOUS (IV); COMPARISON: CR XR CERVICAL SPINE COMP 4-5V 05/03/2020 12:16 FINDINGS: Right common carotid artery: No significant stenosis. No dissection or occlusion. Right internal carotid artery: Extracranial segment is patent with no significant stenosis. No dissection or occlusion. Right external carotid artery: No occlusion or significant stenosis. Left common carotid artery: No significant stenosis. No dissection or occlusion. Left internal carotid artery: Extracranial segment is patent with no significant stenosis. No dissection or occlusion. Left external carotid artery: No occlusion or significant stenosis. Right vertebral artery: No significant stenosis. No dissection or occlusion. Left vertebral artery: No significant stenosis. No dissection or occlusion. Soft tissues: No significant soft tissue swelling. Bones/joints: Degenerative changes in the spine. No acute fracture or subluxation. IMPRESSION: No acute arterial pathology. Patent carotid and vertebral system bilaterally. Dictated and Authenticated by: Maryanne Coburn MD. Ordering:PAPO Robertson MD
[2023-01-04 20:12] LABS: Troponin I < 50 ng/L (<or=60)
--- NOTE | 2023-01-04 20:56 | HPE_ITS ---
Date of service: 01/04/23 Time of Service: 20:56 Assessment and Plan Assessment and plan (1) Ataxia due to acute cerebrovascular disease: Start date: 01/04/23 Status: Acute Assessment and plan: This is an 82-year-old gentleman presenting with ataxia and sudden inability to walk. There were no acute findings on CT of the head and neck as well as CT of the head other than larger than usual ventricular system with atrophy with normal pressure hydrocephalus mentioned in the impression though this will usually not be sudden onset, old caudate infarct and multifocal stenosis of the right vertebral which was still patent. He continued to have problems ambulating and walking without stumbling in the ED and will be rechecked in the morning. Patient was already on aspirin and having failed aspirin was loaded with 324 mg of aspirin as well as initiated on Plavix 75 mg daily. Neurology consultation did not discuss adding dual antiplatelet therapy but this is appropriate given his presentation with possible CVA and being on aspirin initially. MRI of the brain and echocardiogram with bubble study will be performed when available. Patient will be monitored on cardiac monitoring for significant valvular disease but no active CAD. He appears comfortable. PT and OT to see the patient. (2) Hypomagnesemia: Start date: 01/04/23 Status: Acute Assessment and plan: Patient has a low magnesium with is repleted upon admission and will be followed daily. This may be nutritional. Patient is not on diuretics. (3) Diabetes mellitus: Status: Chronic Assessment and plan: Chronic and stable without sequela with patient to have his usual outpatient meds held during the hospital stay and covered with corrected insulin glucometer checks. Qualifiers: Diabetes mellitus complication detail: with polyneuropathy Diabetes mellitus complication status: with neurologic complications Diabetes mellitus termite inspector insulin use: with termite inspector use Diabetes mellitus type: type 2 Qualified Code(s): E11.42 - Type 2 diabetes mellitus with diabetic polyneuropathy; Z79.4 - intermediate designer (current) use of insulin (4) Ischemic cardiomyopathy: Status: Chronic Assessment and plan: Significant valvular disease and no history of CHF or recent chest pain. Update echocardiogram. (5) Essential hypertension: Status: Chronic Assessment and plan: Patient will have permissive hypertension during his hospital stay with possible CVA. (6) Hyponatremia: Status: Chronic Assessment and plan: This appears stable and will have no specific treatment other than following labs. Patient denies alcohol use. Replete magnesium. History of Present Illness History of Present Illness Chief Complaint: Sudden onset of inability to stand or walk Narrative: This is an 82-year-old male patient who is quite active at home working with his [id number] at his shed on the day of admission when he sat down on a log to do some work and then could not stand. He pulled himself up into his [id number] injuring his right chest wall but not falling. He did drive the vehicle to his home but could not stand to walk again. His did check on him and helped him with a walker and, using the side rails of his ramp at home to get inside. There was no fall or injury other than injuring his right chest wall when he initially had to pull himself up into his [id number]. He had no syncope or palpitations and had no chest pain. He had no seizure activity. He was not incontinent of urine or stool. He denies any diaphoresis or shortness of breath. In the ED he is compared to slightly improved and could move his lower extremities well with a normal exam but when standing could not walk without being unstable and crossing over on his legs. He was to have ataxia more than weakness. He denied any vertigo or dizziness. He was speaking clearly without difficulty. He did have a CTA of the head and neck as well as CT of the head and CT of the cervical spine which were unrevealing for acute processes. He was admitted for observation and PT with OT as well as further imaging with echocardiogram including bubble study and MRI of the C-spine and brain. He is a full code at this time. Review of Systems Narrative: 13 point review of systems otherwise unrevealing or stable. [facility] All Active Problems (Updated 01/05/23 @ 06:15 by Leonidas Winter) Hypomagnesemia (Acute) Ataxia due to acute cerebrovascular disease (Acute) Diabetes mellitus with peripheral angiopathy (Acute) Onychomycosis (Acute) Type 2 diabetes mellitus with peripheral neuropathy (Acute) Chronic seborrheic dermatitis (Acute) Nail dystrophy (Acute) Ischemic cardiomyopathy (Chronic) Hyponatremia (Chronic) Peripheral neuropathy (Acute) Cataract, bilateral (Acute) 11/08/20 Eye Exam ([facility]) Diabetic retinopathy of right eye (Acute ~12/08/20) mild, left normal Incomplete bladder emptying (Acute) Dr. Lyudmila Metz yearly at 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 Father , 75 Diabetes Social History Smoking/Tobacco Use Status: Former Tobacco Use Smokeless tobacco user: chewing tobacco Smoking risk assessment performed?: Yes Alcohol Intake: current Alcohol Intake frequency: holidays/special occasions only Drug use: Never Substance use type: does not use Household members: spouse Housing: house Number of Children: 8 Communication Needs: Hard of Hearing and Corrective Lenses Current gender identity: male What is your relationship status?: Panel score (0-1 are the most socially isolated patients): 1 What type of physical activity do you participate in: other Details: treadmil Duration: < 15 minutes/day Frequency: 3-4 times per week Seatbelt use: always Drive intox or ride w/intox [id number] tank driver: No Working smoke detector in home: Yes Fire extinguisher in home: Yes Carbon monox detector in home: Yes Do you feel safe at home: Yes Do you feel safe in your relationship?: Yes Meds Allergies and Home Medications Allergies Allergy/AdvReac Type Severity Reaction Status Date / Time Penicillins Allergy Unknown SWELLING Verified 12/23/22 14:24 lactose AdvReac Diarrhea Verified 12/23/22 14:24 Home Medications Medication Instructions Recorded Confirmed Type Psyllium [Metamucil] 1 ea PO BID PRN 05/20/12 01/04/23 History ascorbic acid (vitamin C) 1,000 mg 1,000 mg PO DAILY 05/20/12 01/04/23 History tablet cholecalciferol (vitamin D3) 25 1,000 unit PO DAILY 05/20/12 12/23/22 History mcg (1,000 unit) capsule aspirin 81 mg chewable tablet 81 mg PO DAILY 09/15/15 01/04/23 History (Aspirin Low-Strength) nitroglycerin 0.4 mg sublingual 0.4 mg buccal q15m PRN #25 tab-caps 09/15/15 01/04/23 History tablet (Nitrostat) naproxen 500 mg tablet 500 mg PO BID PRN pain #60 tabs 11/01/21 01/04/23 Rx blood-glucose meter #1 ea 01/24/22 12/23/22 Rx blood sugar diagnostic (FreeStyle #300 strips 06/11/22 12/23/22 Rx Lite Strips) metformin 500 mg tablet,extended 1,000 mg (2 x 500 mg) PO BID #270 07/26/22 01/04/23 Rx release 24 hr tab-caps atorvastatin 40 mg tablet 40 mg PO DAILY #90 tab-caps 08/08/22 01/04/23 Rx losartan 50 mg tablet 50 mg PO DAILY #90 tabs 08/08/22 01/04/23 Rx atenolol 25 mg tablet 25 mg PO DAILY #90 tabs 08/13/22 01/04/23 Rx tamsulosin 0.4 mg capsule 0.8 mg (2 x 0.4 mg) PO DAILY #180 09/30/22 01/04/23 Rx tab-caps glipizide 5 mg tablet 5 mg PO BID #180 tab-caps 10/10/22 01/04/23 Rx omeprazole 20 mg capsule,delayed 20 mg PO DAILY #90 caps 11/19/22 01/04/23 Rx release insulin detemir U-100 100 unit/mL 10 unit (0.1 mL) subcut QAM #15 mL 12/23/22 01/04/23 Rx (3 mL) subcutaneous pen (Levemir FlexPen) pen needle, diabetic 31 gauge x #100 ea 12/23/22 12/23/22 Rx 07/23 (Pen Needle) semaglutide 3 mg tablet (Rybelsus) 3 mg PO DAILY 01/04/23 01/04/23 History Exam Narrative Exam Narrative: General: Patient appears appropriate for age, alert and oriented x3 in no acute distress. He is hard of hearing. HEENT: Normocephalic, eyes with pupils equal react light symmetrically, extraocular move intact and sclera anicteric. Oropharynx with moist [place]. Neck: Supple without JVD. Back: Normal posture without CVA tenderness. Lungs: Fair aeration clear to auscultation percussion. Heart: Irregular rhythm with normal rate, 4/6 pansystolic murmur over precordium. No gallop or rub. Chest: Slightly tender to palpation of the right anterior lower ribs without crepitus or bruising. Breast: Exam deferred. Abdomen: Normal contour, soft nontender palpation with no palpable hepatosplenomegaly. Bowel sounds positive all quadrants. Genitalia/rectal: Exam deferred. Extremities, clubbing, cyanosis or pitting edema. Peripheral pulses are intact. Skin: Normal color, warm and dry. Neuro: Cranial nerves II through XII gross tach patient having decreased hearing acuity, no focalizing motor deficits with lower extremities having normal strength examined in bed the patient was not made to stand and attempt to walk again. Cerebellar testing was positive with patient unsteady and having an abnormal gait in the ED. No tremor. Psych: Normal affect, normal mood. No abnormal thought processes. Remote and recent memory grossly intact. Results Imaging Imaging Studies: Exam: CTA Head Without And With Contrast, Arteriography Exam date and time: 01/04/2023 18:48 Age: 82 years old Clinical indication: Patient HX: Bilateral leg weakness, ataxia COMPARISON: CR XR CERVICAL SPINE COMP 4-5V 05/03/2020 12:16 FINDINGS: ANTERIOR CIRCULATION: Right internal carotid artery: Intracranial segment is patent with no significant stenosis. No aneurysm. Right middle cerebral artery: No occlusion or significant stenosis. No aneurysm. Right anterior cerebral artery: No occlusion or significant stenosis. No aneurysm. Left internal carotid artery: Intracranial segment is patent with no significant stenosis. No aneurysm. Left middle cerebral artery: No occlusion or significant stenosis. No aneurysm. Left anterior cerebral artery: No occlusion or significant stenosis. No aneurysm. POSTERIOR CIRCULATION: Right vertebral artery: Atherosclerosis and multifocal stenosis of right vertebral artery without aneurysm. Left vertebral artery: No occlusion or significant stenosis. No aneurysm. Basilar artery: No occlusion or significant stenosis. No aneurysm. Right posterior cerebral artery: No occlusion or significant stenosis. No aneurysm. Left posterior cerebral artery: No occlusion or significant stenosis. No aneurysm. HEAD: Brain: Atrophy and chronic appearing white matter changes. 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 No edema or hemorrhage. Cerebral ventricles: Dilation of the ventricular system greater than expected for the degree of atrophy. Bones/joints: No acute fracture. Paranasal sinuses: No significant appearing sinusitis. Mastoid air cells: No mastoid effusion. Soft tissues: No suspicious lesions. IMPRESSION: No large vessel occlusion. Consider normal pressure hydrocephalus. PROCEDURE INFORMATION: Exam: CTA Neck Without And With Contrast Exam date and time: 01/04/2023 18:48 Age: 82 years old Clinical indication: Patient HX: Bilateral leg weakness, ataxia COMPARISON: CR XR CERVICAL SPINE COMP 4-5V 05/03/2020 12:16 FINDINGS: Right common carotid artery: No significant stenosis. No dissection or occlusion. Right internal carotid artery: Extracranial segment is patent with no significant stenosis. No dissection or occlusion. Right external carotid artery: No occlusion or significant stenosis. Left common carotid artery: No significant stenosis. No dissection or occlusion. Left internal carotid artery: Extracranial segment is patent with no significant stenosis. No dissection or occlusion. Left external carotid artery: No occlusion or significant stenosis. Right vertebral artery: No significant stenosis. No dissection or occlusion. Left vertebral artery: No significant stenosis. No dissection or occlusion. Soft tissues: No significant soft tissue swelling. Bones/joints: Degenerative changes in the spine. No acute fracture or subluxation. IMPRESSION: No acute arterial pathology. Patent carotid and vertebral system bilaterally. Exam: CT Cervical Spine Without Contrast Exam date and time: 01/04/2023 18:48 Age: 82 years old Clinical indication: Other: Ataxia TECHNIQUE: Imaging protocol: Computed tomography of the cervical spine without contrast. COMPARISON: CR XR CERVICAL SPINE COMP 4-5V 05/03/2020 12:16 FINDINGS: Bones/joints: Rotational listhesis at C1-C2, likely related to head positioning. No acute fracture or subluxation. Moderate multilevel degenerative changes most pronounced at C5-C6 and C6-C7 with multilevel neural foraminal greater than central canal stenosis. Trace degenerative anterolisthesis C7 over T1. Lungs: No consolidation. Soft tissues: No suspicious lesions. IMPRESSION: No cervical spine fracture. EXAM: XR CHEST 2V PA LATERAL CLINICAL HISTORY: weakness TECHNIQUE: 2D digital imaging was performed. COMPARISON: CR CHEST 2 VIEWS PA,LAT from 02/06/2017 FINDINGS: AP view limited by suboptimal pulmonary inflation. Leads overlie the chest. There is a question of a area increased density in the mid right lung field on the AP view. No definite corresponding abnormality on the lateral view. HEART: Normal size. Aorta: Ectatic. PULMONARY VASCULATURE: Normal. LUNGS: Clear. PLEURAL SPACE: No pleural effusion or pneumothorax. BONE:Unremarkable for age. IMPRESSION: Limited exam. Question of atelectasis versus infiltrate in the mid right lung. Labs 01/04/23 16:49 01/04/23 16:49 Labs: Laboratory Results - last 24 hr 01/04/23 01/04/23 01/04/23 16:49 17:17 19:48 WBC 11.21 H RBC 3.88 L Hgb 12.3 L Hct 34.9 L MCV 90 MCH 31.7 MCHC 35.2 RDW 12.2 Plt Count 211 MPV 9.0 Immature Gran % 0.4 Neutrophils % 88.8 Lymphocytes % 4.8 Monocytes % 5.2 Eosinophils % 0.6 Basophils % 0.2 Nucleated RBC % 0.0 Absolute Neutrophils 9.95 H Absolute Lymphocytes 0.54 L Absolute Monocytes 0.58 Absolute Eosinophils 0.07 Absolute Basophils 0.02 Sodium 129 L Potassium 3.8 Chloride 96 L Carbon Dioxide 28.4 Anion Gap 4.6 BUN 11 Creatinine 0.8 Est GFR (CKD-EPI 2020) 88.36 Glucose 119 H Calcium 8.9 Magnesium 1.6 L Total Bilirubin 0.5 AST 13 L ALT 20 Alkaline Phosphatase 72 Troponin I 50 < 50 Total Protein 7.0 Albumin 3.7 Urine Color Yellow Urine Clarity Clear Urine pH 7.0 Ur Specific [place] 1.020 Urine Protein 30 H Urine Ketones Negative Urine Blood Negative Urine Nitrite Negative Urine Bilirubin Negative Urine Urobilinogen 0.2 Ur Leukocyte Esterase Negative Urine RBC 3-5 H Urine WBC Negative Ur Epithelial Cells Negative Urine Crystals Negative Urine Bacteria Negative Urine Mucus Negative Ur Culture Indicated? No Urine Glucose Negative Last Vital Signs Temp 36.8 C 01/04/23 15:59 Pulse 67 01/04/23 16:31 Resp 15 01/04/23 19:50 BP 172/91 H 01/04/23 16:31 Pulse Ox 95 01/04/23 19:50 Time Spent Time spent with Patient: >75 minutes Time was spent: preparing to see the patient(eg.review tests), obtaining and/or reviewing separately otained hiistory, ordering medications,tests, procedures, referring, communicating with other health school child care attendant, indepentently interpreting results, counseling the patient and care coordination
[2023-01-04] MEDS: Aspirin 81 MG CHEW 324 MG PO (21:12)
[2023-01-04 21:54] LABS: Source Nasopharynx
[2023-01-04 22:25] LABS: COVID-19 PCR Negative (Negative)
--- NOTE | 2023-01-04 22:43 | DI.VRAD_ITS ---
PROCEDURE INFORMATION: Exam: CT Cervical Spine Without Contrast Exam date and time: 01/04/2023 18:48 Age: 82 years old Clinical indication: Other: Ataxia TECHNIQUE: Imaging protocol: Computed tomography of the cervical spine without contrast. COMPARISON: CR XR CERVICAL SPINE COMP 4-5V 05/03/2020 12:16 FINDINGS: Bones/joints: Rotational listhesis at C1-C2, likely related to head positioning. No acute fracture or subluxation. Moderate multilevel degenerative changes most pronounced at C5-C6 and C6-C7 with multilevel neural foraminal greater than central canal stenosis. Trace degenerative anterolisthesis C7 over T1. Lungs: No consolidation. Soft tissues: No suspicious lesions. IMPRESSION: No cervical spine fracture. Dictated and Authenticated by: Maryanne Coburn MD. Ordering:GONZALEZ Lauren MD
[2023-01-04 23:13] LABS: INR 1.2 (0.9-1.1); Prothrombin Time 11.5 sec (9.1-11.1)
[2023-01-04] MEDS: MAGNESIUM SULFATE 2 GM/50 ML BAG IVPB (23:41)
[2023-01-04] MEDS: Normal Saline 1,000 ML 125 ML IV (23:42)
[2023-01-05] VITALS (7 sets, daily range): BP systolic 128–156; BP diastolic 70–77; PULSE 51–65; RESP 16–18; TEMP 35.9–36.3; O2SAT 95–98
[2023-01-05] MEDS: Clopidogrel 75 MG TAB PO ×2 (04:55→08:39)
[2023-01-05 06:31] LABS: HCT 33.6 % (40.0-50.0); HGB 11.7 g/dL (13.5-17.5); MCH 31.6 pg (27.0-33.0); MCHC 34.8 % (32.0-36.0); MCV 91 fL (80-95); MPV 9.3 fL (8.0-11.0); Platelet Count 203 10^3/uL (130-400); RDW 12.5 % (11.8-14.1); RDW-SD 41.6 fL; WBC 7.83 10^3/uL (4.4-10.8)
[2023-01-05 06:49] LABS: ALT 17 U/L (16-63); AST 13 U/L (15-37); Albumin 3.1 g/dL (3.4-5.0); Alkaline Phosphatase 67 U/L (46-116); Anion Gap 8.3 mmol/L (3-11); BUN 7 mg/dL (7-18); Bilirubin, Total 0.4 mg/dL (0.2-1.0); CO2 25.7 mmol/L (21.0-32.0); CREATININE 0.6 mg/dL (0.70-1.30); Calcium 8.4 mg/dL (8.5-10.1); Chloride 104 mmol/L (98-107); Estimated GFR 96.38 (mL/min/1.73m2); Glucose 131 mg/dL (74-106); Potassium 3.9 mmol/L (3.5-5.1); Sodium 138 mmol/L (136-145); Total Protein 5.9 g/dL (6.4-8.2)
[2023-01-05 07:53] LABS: Lab Add On Test COMPLETED
[2023-01-05 08:06] LABS: Calculated LDL 39 mg/dL (<100); Cholesterol 90 mg/dL (<200); HDL Cholesterol 42 mg/dL (40-60); Triglyceride 46 mg/dL (<150)
[2023-01-05] MEDS: Pantoprazole 40 MG TABCR PO (08:38)
[2023-01-05] MEDS: Tamsulosin 0.4 MG CAPCR 0.8 MG PO (08:38)
[2023-01-05] MEDS: Aspirin 81 MG CHEW PO (08:38)
[2023-01-05] MEDS: Atorvastatin 40 MG TAB 80 MG PO (08:38)
[2023-01-05] MEDS: Cholecalciferol (Vitamin D3) 1,000 UNIT TAB 1000 UNITS PO (08:38)
[2023-01-05] MEDS: Ascorbic Acid 500 MG TAB 1000 MG PO (08:38)
[2023-01-05] MEDS: Losartan 50 MG TAB PO (08:39)
[2023-01-05] MEDS: Atenolol 25 MG TAB PO (08:39)
[2023-01-05] MEDS: Insulin Aspart 300 UNITS/3 ML PEN SC ×3 (08:39→22:14)
--- NOTE | 2023-01-05 08:59 | PDOC.CMIN ---
Date of service: 01/05/23 Time of Service: 08:59 Care Management Initial Assmt Initial Assessment REASON FOR HOSPITALIZATION:: ataxia, r/o CVA PREVIOUS FUNCTIONAL STATUS/SOCIAL/FAMILY SUPPORTS:: Brody lives in a single family home in [facility] with his Pita. They have a blended marriage and with 8 children between them. All of their children live [place] [facility]. Brody is originally from [place] and he and Pita moved here in 1999 when Brody retired. 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 Brody has a cane and a walker which he uses on occasion. They have a privately paid center mgr for about 2 hours/week but receive no community services. CURRENT FUNCTIONAL STATUS:: Brody was sitting up in bed visiting with his and sister when CM met with him. He was very pleasant and agreeable to conversation but informed CM that he is very hard of hearing. He wears hearing aides and his brought in his hearing aide weigher and charger today. Brody's symptoms began suddenly yesterday when he was unable to stand or walk. He stated that he is doing better today but is still having some difficulty. Brody is scheduled for an MRI and an Echocardiogram with bubble study tomorrow to help with the diagnosis. A consult with [facility] indicated that it is possible he had a posterior fossa CVA. ADVANCE DIRECTIVES:: On file. Pita [facility] Has patient been provided with info about the portal/API?: Yes Did the patient sign up for the portal?: Yes CODE STATUS:: DNI CODE STATUS COMMENT:: wants CPR but not intubation INSURANCE COVERAGE / FINANCIAL ISSUES:: Medicare [employer] supplement CURRENT HOME/COMMUNITY SERVICES/EQUIPMENT:: owns a cane and a walker PRIMARY CARE PHYSICIAN:: Russel Steen POTENTIAL DISCHARGE NEEDS:: follow up with PCP and plan of care PATIENT/FAMILY EDUCATION NEEDS:: Review of discharge instructions, activity, limitations, follow up plan, discuss Ask me Three TRANSPORTATION:: via private vehicle with PLAN:: Anticipate Ken will be discharged home, possibly with new home health services for PT. He will follow up with his PCP and plan of care and transport with family. CM will follow and continue to assess for discharge planning concerns. PFSH All Active Problems (Updated 01/05/23 @ 06:15 by Leonidas Winter) Hypomagnesemia (Acute) Ataxia due to acute cerebrovascular disease (Acute) Diabetes mellitus with peripheral angiopathy (Acute) Onychomycosis (Acute) Type 2 diabetes mellitus with peripheral neuropathy (Acute) Chronic seborrheic dermatitis (Acute) Nail dystrophy (Acute) Ischemic cardiomyopathy (Chronic) Hyponatremia (Chronic) Peripheral neuropathy (Acute) Cataract, bilateral (Acute) 11/08/20 Eye Exam ([facility]) Diabetic retinopathy of right eye (Acute ~12/08/20) mild, left normal Incomplete bladder emptying (Acute) Dr. Lyudmila Metz yearly at 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 Father , 75 Diabetes Social History Smoking/Tobacco Use Status: Former Tobacco Use Smokeless tobacco user: chewing tobacco Smoking risk assessment performed?: Yes Alcohol Intake: current Alcohol Intake frequency: holidays/special occasions only Drug use: Never Substance use type: does not use Household members: spouse Housing: house Number of Children: 8 Communication Needs: Hard of Hearing and Corrective Lenses Current gender identity: male What is your relationship status?: Panel score (0-1 are the most socially isolated patients): 1 What type of physical activity do you participate in: other Details: treadmil Duration: < 15 minutes/day Frequency: 3-4 times per week Seatbelt use: always Drive intox or ride w/intox 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
--- NOTE | 2023-01-05 09:16 | IN_ITS ---
Date of service: 01/05/23 Time of Service: 08:45 PT Notes Visit Reasons: CVA, HNT, CAD, NIDDM Inpatient Physical Therapy Evaluation Date: December Referring Doctor: Leonidas Winter PT Orders: PT CONSULT: Limited Ability Precautions: Standard, Hard of Hearing Patient Profile/Admitting Diagnosis: eKn is an 82-year-old male patient admitted with diagnosis of CVA yesterday. Patient notes he was at home working with his [id number] at his shed when he sat down on a log to do some work he then could not stand. He pulled himself up into his nryb-jc-wgyo injuring his right chest wall but not falling noting continued irritation into his ribs. Brought to hospital via EMS PMHX: (Updated 01/05/23 @ 06:15 by Leonidas Winter) Hypomagnesemia (Acute) Ataxia due to acute cerebrovascular disease (Acute) Diabetes mellitus with peripheral angiopathy (Acute) Onychomycosis (Acute) Type 2 diabetes mellitus with peripheral neuropathy (Acute) Chronic seborrheic dermatitis (Acute) Nail dystrophy (Acute) Ischemic cardiomyopathy (Chronic) Hyponatremia (Chronic) Peripheral neuropathy (Acute) Cataract, bilateral (Acute) 11/08/20 Eye Exam ([facility])Diabetic retinopathy of right eye (Acute ~12/08/20) mild, left normalIncomplete bladder emptying (Acute) 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) Gastro-esophageal reflux disease without esophagitis (Chronic 06/07/98) s/p esophageal dilatation 1998 Essential hypertension (Chronic 02/21/05) Diabetes mellitus (Chronic 05/30/06) A1C 6.9 01/2010 no retinopathy 10/14/14; goal A1c<7.5 Coronary atherosclerosis of [place] coronary vessel (Chronic 11/08/93) [place] AND ANGIOLPLASTY ANKORAGE 11/1993; stent 1996 Actinic keratosis (Chronic 03/11/83) Flori Luu; elsy arias; Dr Cotton 2013 [address] Delator[place] [facility] Surgical History Repair of inguinal hernia (03/08/13) left KSD Social History/Home Situation: Lives in a private home with his . Does not drive for recently gave this up. Receives transportation via neighbors to his MD appts,etc. Home is one level however does have 10 stairs to enter his home. Stairs are 6 inch rise. Current Functional Limitations: Decreased activity tolerance, has slowed down a lot over the last couple of years. Does have a quad cane and a walker at home however does not utilize them at this time. Does help his around the home with simple house carpenter helper such as the surgical orderly. His children have hired people to plow and shovel his yard as well as mow his lawn. Prior to hospitalization independent in ADL's Equipment Owned/DME: quad cane, walker, grab bars in bathroom, bench in tub however does not have walk in shower has to step up and over to enter shower. Subjective: Ken notes that he is feeling over better this morning. Legs feel less shaky as he went from bed to chair with nursing. Notes of mild discomfort in his chest from straining to get back into his ATV to get back to his home yesterday when the weakness set in. Objective: General Observation: telemetry, IV R UE Mental Status: Alert and oriented x3 Pain: Mild discomfort into the right side of his rib cage Vitals: Monitored via Nursing ROM: Right Upper Extremity: Demonstrates WFL AROM R UE lacking 25% of end range flexion and abduction. Left Upper Extremity: Demonstrates WFL AROM L UE lacking 25% of end range flexion and abduction. Right Lower Extremity: Demonstrates WFL AROM R LE. Left Lower Extremity: Demonstrates WFL AROM L LE. Strength: Right Upper Extremity: Shoulder flexion 4/5, abduction 3+/5, ER 4/5, IR 4/5, Bicep 4/5, Good functional grasp Left Upper Extremity: Shoulder flexion 4/5, abduction 4-/5, ER 4-/5, IR 4/5, Bicep 4/5, Good functional grasp Right Lower Extremity: Hip flexion 4-/5, abduction 4/5, knee flexion 4/5, knee extension 4+/5, DF 4/5 Left Lower Extremity: Hip flexion 4-/5, abduction 4/5, knee flexion 4/5, knee extension 4+/5, DF 4/5 Sensation: Intact to light touch bilateral LE. Complains of history of bilateral stocking distribution neuropathy Bed Mobility/Transfers: Supine-Sit: Supervision Stand-sit: Supervision Sit-stand: Supervision with cueing for proper hand placement Bed-chair: CGA with FWW Gait: FWW, decreased susan, 200ft without SOB, or fatigue Balance: Static Sitting: Normal Dynamic Sitting: Normal Static Standing: Good Dynamic Standing: Fair 4 stage balance assessment:Feet together 10 seconds, foot and instep of other foot 10 seconds, tandem stance with hand-held assist to assume position 8 seconds with increased sway, unilateral stance left 1 to 2 seconds right 3 to 4 seconds Special Tests: Mobility Limitations Standardized Measure [facility] 6 clicks Basic Mobility Inpatient Short Form: Raw Score: 19 CMS Score:42% Informed Consent/Education: Patient instructed in purpose of PT consult and plan of care. Assessment: Patient is a 82 year old male referred to physical therapy services with the diagnosis of CVA,HTN,CAD, and NIDDM. Patient presents with clinical signs and symptoms consistent with diagnosis, as demonstrated by the following impairment level findings: Mild weakness bilateral upper and lower extremity major muscle groups, altered balance requiring assistive device for all ambulation, and decreased functional endurance. Impairments are contributing to the following functional limitations: Decreased activity tolerance, limited ability with functional transfers, decreased functional endurance with ambulation, altered balance requiring front wheeled walker for ambulation Patient is assessed as a Moderate 65351 complexity based on the following: History: As above Examination: As above Presentation: Stable Decision Making: Evolving Goals: Goals X1 week 1. Supine-Sit independent 2. Sit-Supine independent 3. Sit-Stand independent 4. Stand-Sit independent 5. Bed-Chair independent with front wheeled walker 6. Chair-Bed independent with front wheeled walker 7. Gait independent with front wheeled walker ambulating 300 feet or more out signs of dyspnea or fatigue 8. Stairs able to climb up/down 10 stairs with railing Plan of Care/Treatment Plan: 1-2x/day, 7 days/week x 1 week. Plan of care has been reviewed with the MIXING AND DISPENSING SUPERVISOR providing the service under Physical Therapy direction. Initiate Physical Therapy intervention for strengthening, bed mobility, transfers, gait, stairs, balance training, use of assistive device. DISCHARGE RECOMMENDATIONS: Home with services PT/OT TREATMENT CODE/TIME: 75636, IE, 30 minutes, 8:45 am ALICIA Self [facility] Disclaimer: This note was created using [employer] voice recognition software. It was reviewed for major content. However, there may be multiple small discrepancies and errors due to the voice recognition aspects of the software.
--- NOTE | 2023-01-05 10:03 | PGE_ITS ---
Date of Service Date of service: 01/05/23 Time of Service: 10:03 Assessment and Plan Assessment and plan (1) Ataxia due to acute cerebrovascular disease: Start date: 01/04/23 Status: Acute Assessment and plan: Resolving , ambulating with PT in hallway Continue Plavix (21 days) and ASA MRI in AM Neurology consult (2) Hypomagnesemia: Start date: 01/04/23 Status: Acute Assessment and plan: Low magnesium replete on admission and will be followed daily. This may be nutritional. Patient is not on diuretics. (3) Diabetes mellitus: Status: Chronic Assessment and plan: Chronic and stable without sequela with patient to have his usual outpatient meds held during the hospital stay and covered with corrected insulin glucometer checks.Glucose by FS 140 this AM Qualifiers: Diabetes mellitus complication detail: with polyneuropathy Diabetes mellitus complication status: with neurologic complications Diabetes mellitus commodities trader insulin use: with assisted use Diabetes mellitus type: type 2 Qualified Code(s): E11.42 - Type 2 diabetes mellitus with diabetic poly neuropathy; Z79.4 - media strategist (current) use of insulin (4) Ischemic cardiomyopathy: Status: Chronic Assessment and plan: Significant valvular disease and no history of CHF or recent chest pain. Update echocardiogram. Echo with bubble study in AM (5) Essential hypertension: Status: Chronic Assessment and plan: Patient will have permissive hypertension during his hospital stay with possible CVA. holding losartan for SBP <140 (6) Hyponatremia: Status: Chronic Assessment and plan: NA 138, will continue to monitor BMP in AM (7) Contraindication to deep vein thrombosis (DVT) prophylaxis: Status: Acute Assessment and plan: Pt is on Plavix and ASA for acute stroke suspicion, reasonably not pursuing pharmacologic DVT prophylaxis (8) Discharge planning issues: Status: Acute Assessment and plan: CM will f/u Subjective Subjective Patient reports: no new complaints, feels better (slept well, ambulating with PT this AM), tolerating liquids well, tolerating a regular diet, voiding w/o difficulty, flatus, bowel movement, shortness of breath and afebrile; denies diarrhea, nausea or vomiting Exam Narrative Exam Narrative: Constitutional The patient is lying in bed comfortable and cooperative during the interview. The patient is well groomed without acute distress and has average body habitus HENMT: Head is atraumatic, normocephalic, no lymphadenopathy. Facial structures with normal appearance Eyes: Well aligned, intact ROM Neck: Normal ROM, no meningeal signs Neuro:alert and oriented to self, person, place time and situation. No neurological focal deficit, PERRLA on ambient light 2 Chest:Chest is symmetrical and normal appearance Resp: Normal respiratory pattern, speaks in full sentences, unlabored breathing, clear lung bilaterally Cardio: tele 1AVB HR 65-70,regular rhythm, S1, S2, capillary refill<3 sec., bilateral radial and dorsalis pedis pulses are positive, palpable GI: Abdomen is not distended, soft and non tender, bowel sounds are present : Negative Costovertebral angle tenderness, no bladder distension Back/spine/Pelvis: No back tenderness, normal alignment Integumentary: No skin lesions or rash Extremities: strength 5/5 to bilateral lower and upper extremities Psych: RASS 0, congruent mood and normal affect. Objective Last Vital Signs Temp 36 C L 01/05/23 07:36 Pulse 65 01/05/23 07:53 Resp 18 01/05/23 07:36 BP 148/70 H 01/05/23 07:36 Pulse Ox 95 01/05/23 07:36 Laboratory Results - last 24 hr 01/04/23 01/04/23 01/04/23 16:49 17:17 19:48 WBC 11.21 H RBC 3.88 L Hgb 12.3 L Hct 34.9 L MCV 90 MCH 31.7 MCHC 35.2 RDW 12.2 Plt Count 211 MPV 9.0 Immature Gran % 0.4 Neutrophils % 88.8 Lymphocytes % 4.8 Monocytes % 5.2 Eosinophils % 0.6 Basophils % 0.2 Nucleated RBC % 0.0 Absolute Neutrophils 9.95 H Absolute Lymphocytes 0.54 L Absolute Monocytes 0.58 Absolute Eosinophils 0.07 Absolute Basophils 0.02 PT 11.5 H INR 1.2 H Sodium 129 L Potassium 3.8 Chloride 96 L Carbon Dioxide 28.4 Anion Gap 4.6 BUN 11 Creatinine 0.8 Est GFR (CKD-EPI 2020) 88.36 Glucose 119 H POC Glucose Calcium 8.9 Magnesium 1.6 L Total Bilirubin 0.5 AST 13 L ALT 20 Alkaline Phosphatase 72 Troponin I 50 < 50 Total Protein 7.0 Albumin 3.7 Triglycerides Total Cholesterol LDL Cholesterol, Calc HDL Cholesterol Urine Color Yellow Urine Clarity Clear Urine pH 7.0 Ur Specific Aline 1.020 Urine Protein 30 H Urine Ketones Negative Urine Blood Negative Urine Nitrite Negative Urine Bilirubin Negative Urine Urobilinogen 0.2 Ur Leukocyte Esterase Negative Urine RBC 3-5 H Urine WBC Negative Ur Epithelial Cells Negative Urine Crystals Negative Urine Bacteria Negative Urine Mucus Negative Ur Culture Indicated? No Urine Glucose Negative COVID-19 Source SARS-CoV-2 (PCR) Add-On Test Request 01/04/23 01/04/23 01/05/23 20:03 21:50 05:46 WBC 7.83 RBC 3.70 L Hgb 11.7 L Hct 33.6 L MCV 91 MCH 31.6 MCHC 34.8 RDW 12.5 Plt Count 203 MPV 9.3 Immature Gran % Neutrophils % Lymphocytes % Monocytes % Eosinophils % Basophils % Nucleated RBC % Absolute Neutrophils Absolute Lymphocytes Absolute Monocytes Absolute Eosinophils Absolute Basophils PT INR Sodium 138 Potassium 3.9 Chloride 104 Carbon Dioxide 25.7 Anion Gap 8.3 BUN 7 Creatinine 0.6 L Est GFR (CKD-EPI 2020) 96.38 Glucose 131 H POC Glucose Cancelled Calcium 8.4 L Magnesium 2.0 Total Bilirubin 0.4 AST 13 L ALT 17 Alkaline Phosphatase 67 Troponin I Total Protein 5.9 L Albumin 3.1 L Triglycerides 46 Total Cholesterol 90 LDL Cholesterol, Calc 39 HDL Cholesterol 42 Urine Color Urine Clarity Urine pH Ur Specific Aline Urine Protein Urine Ketones Urine Blood Urine Nitrite Urine Bilirubin Urine Urobilinogen Ur Leukocyte Esterase Urine RBC Urine WBC Ur Epithelial Cells Urine Crystals Urine Bacteria Urine Mucus Ur Culture Indicated? Urine Glucose COVID-19 Source Nasopharynx SARS-CoV-2 (PCR) Negative Add-On Test Request 01/05/23 07:52 WBC RBC Hgb Hct MCV MCH MCHC RDW Plt Count MPV Immature Gran % Neutrophils % Lymphocytes % Monocytes % Eosinophils % Basophils % Nucleated RBC % Absolute Neutrophils Absolute Lymphocytes Absolute Monocytes Absolute Eosinophils Absolute Basophils PT INR Sodium Potassium Chloride Carbon Dioxide Anion Gap BUN Creatinine Est GFR (CKD-EPI 2020) Glucose POC Glucose Calcium Magnesium Total Bilirubin AST ALT Alkaline Phosphatase Troponin I Total Protein Albumin Triglycerides Total Cholesterol LDL Cholesterol, Calc HDL Cholesterol Urine Color Urine Clarity Urine pH Ur Specific Aline Urine Protein Urine Ketones Urine Blood Urine Nitrite Urine Bilirubin Urine Urobilinogen Ur Leukocyte Esterase Urine RBC Urine WBC Ur Epithelial Cells Urine Crystals Urine Bacteria Urine Mucus Ur Culture Indicated? Urine Glucose COVID-19 Source SARS-CoV-2 (PCR) Add-On Test Request COMPLETED Time Spent with Patient Time Spent with Patient: >50 minutes Time was spent: preparing to see the patient(eg.review tests), ordering medications,tests, procedures, referring, communicating with other health managed care manager, indepentently interpreting results, counseling the patient and care coordination
--- NOTE | 2023-01-05 15:00 | DI.CT_ITS ---
Exam(s) CT HEAD WO EXAM: CT HEAD WO CLINICAL HISTORY: CVA with ataxia. TECHNIQUE: Imaging Protocol: Axial computed tomography images with coronal and sagittal reformatted images were created and reviewed COMPARISON: CT CT BRAIN NECK CTA from 01/04/2023 FINDINGS: Ventricles and Extra axial spaces: Normal in size and morphology for the patient's age. Hemorrhage: None. Cerebral parenchyma: Atrophy. White matter changes consistent with small vessel disease. Tiny left caudate lacunar infarct again noted. No acute infarct visible. Midline shift: None. Brainstem/Cerebellum: Normal. Calvarium: Normal. Visualized Paranasal sinuses/Mastoids: Clear. IMPRESSION: No acute abnormality. RADIATION DOSE DELIVERED: Total DLP Total DLP DATA REPOSITORY: All CT scans at this facility are submitted to the National Radiology Data Registry (NRDR) Dose Index Registry (DIR) with the [employer] (A[employer]). RADIATION OPTIMIZATION: All CT scans at this facility use at least one of these dose optimization te chniques: automated exposure control; mA and/or kV adjustment per patient size (includes targeted exa ms where dose is matched to clinical indication); or iterative reconstruction.
--- NOTE | 2023-01-05 15:49 | DI.VRAD_ITS ---
PROCEDURE INFORMATION: Exam: CT Head Without Contrast Exam date and time: 01/05/2023 3:17 PM Age: 82 years old Clinical indication: Other: CVA with ataxia TECHNIQUE: Imaging protocol: Computed tomography of the head without contrast. COMPARISON: CT BRAIN NECK CTA 01/04/2023 6:48 PM FINDINGS: Brain: Generalized cerebral and cerebellar volume loss. Chronic left caudate head lacunar infarction, stable. Confluent white matter hypodensities of the puzb-bmqblfy-ioee-right cerebral hemispheres is consistent with chronic small vessel ischemic change. No CT evidence of acute transcortical infarction. No acute intracranial hemorrhage, midline shift, or herniation. Cerebral ventricles: There is again seen ventriculomegaly, however the callosal angle is obtuse and this likely reflects changes associated with predominantly central volume loss. No evidence of svetlana hydrocephalus. Paranasal sinuses: Visualized sinuses are unremarkable. No fluid levels. Mastoid air cells: Visualized mastoid air cells are well aerated. Bones/joints: Unremarkable. No acute fracture. Soft tissues: Unremarkable. Vasculature: Calcifications of the intracranial internal carotid arteries. IMPRESSION: 1. No CT evidence of acute transcortical infarction. 2. Stable appearance of arteriosclerosis and chronic small vessel ischemic disease. Dictated and Authenticated by: Jeremias Ann MD. Ordering:GONZALEZ Lauren MD
[2023-01-05] MEDS: Acetaminophen 325 MG TAB PO (22:33)
[2023-01-06 03:30] VITALS: BP 145/72; PULSE 60; RESP 16; TEMP 36.2; O2SAT 97
[2023-01-06 06:56] LABS: Abs Immature Grans 0.03 10^3/uL (0.0-0.06); Absolute Basophil Count 0.04 10^3/uL (0.0-0.2); Absolute Eosinophil Count 0.32 10^3/uL (0.0-0.7); Absolute Lymphocyte Count 0.95 10^3/uL (1.2-3.4); Absolute Monocyte Count 0.66 10^3/uL (0.1-0.8); Absolute Neutrophil Count 5.79 10^3/uL (1.2-6.7); Basophils % 0.5; Eosinophils % 4.1; HCT 34.2 % (40.0-50.0); HGB 11.8 g/dL (13.5-17.5); Immature Grans % 0.4; Lymphocytes % 12.2; MCH 31.5 pg (27.0-33.0); MCHC 34.5 % (32.0-36.0); MCV 91 fL (80-95); MPV 9.4 fL (8.0-11.0); Monocytes % 8.5; Neutrophils % 74.3; Platelet Count 195 10^3/uL (130-400); RBC 3.75 10^6/uL (4.36-5.78); RDW 12.3 % (11.8-14.1); RDW-SD 41.1 fL; WBC 7.79 10^3/uL (4.4-10.8)
[2023-01-06 07:07] LABS: Anion Gap 9.7 mmol/L (3-11); BUN 10 mg/dL (7-18); CO2 24.3 mmol/L (21.0-32.0); CREATININE 0.8 mg/dL (0.70-1.30); Calcium 8.6 mg/dL (8.5-10.1); Chloride 102 mmol/L (98-107); Estimated GFR 88.36 (mL/min/1.73m2); Glucose 126 mg/dL (74-106); Magnesium 1.8 mg/dL (1.8-2.4); Potassium 4.1 mmol/L (3.5-5.1); Sodium 136 mmol/L (136-145)
[2023-01-06] MEDS: Pantoprazole 40 MG TABCR PO (07:18)
[2023-01-06 07:45] VITALS: BP 161/77; PULSE 59; O2SAT 95
[2023-01-06 07:57] VITALS: BP 161/77; PULSE 60; RESP 17; TEMP 36.2; O2SAT 95
--- NOTE | 2023-01-06 08:00 | DI.MRI_ITS ---
Exam(s) MR BRAIN WO EXAM: MR BRAIN WO CLINICAL HISTORY: CVA. TECHNIQUE: Multiplanar multisequence MRI of the brain was performed. CONTRAST MATERIAL: Noncontrast COMPARISON: CT CT HEAD WO from 01/05/2023 FINDINGS: VENTRICLES AND EXTRA AXIAL SPACES: Ventricles appear mildly enlarged but unchanged. HEMORRHAGE: None. CEREBRAL PARENCHYMA: No focus of restricted diffusion to suggest acute infarct. No space-occupying le ivett identified. Tiny left caudate lacunar infarct. Mild increased signal in the white matter consi stent with microvascular changes. Moderate atrophy. MIDLINE SHIFT: None. BRAINSTEM/CEREBELLUM: Normal. CALVARIUM: Normal. VISUALIZED PARANASAL SINUSES/MASTOIDS: Mild mucosal thickening floor right maxillary sinus. OTHER FINDINGS: None. IMPRESSION: Atrophy and mild white matter changes of small vessel disease. No evidence of acute infarct. DATA REPOSITORY:
--- NOTE | 2023-01-06 08:00 | DI.MRI_ITS ---
Exam(s) MR CERVICAL SPINE WO EXAM: MR CERVICAL SPINE WO CLINICAL HISTORY: CVA with ataxia TECHNIQUE: Multiplanar multisequence MRI of the cervical spine was performed without intravenous con trast. COMPARISON: No exams were available for comparison FINDINGS: BONES: Vertebral body heights are maintained. Alignment is normal. Bone marrow signal intensity is wi thin normal limits. CERVICAL CORD: Craniovertebral junction is unremarkable. The cervical cord is normal size and signal intensity. SOFT TISSUES: Unremarkable. C2-3: No disc herniation or bulge is identified. No evidence of neural foraminal narrowing. No signi ficant central canal stenosis. C3-4: Small endplate osteophytes. No disc herniation or bulge is identified. No evidence of neural f oraminal narrowing. No significant central canal stenosis. C4-5: Minimal endplate osteophytes. No disc herniation or bulge is identified. Bilateralneural rocio inal narrowing. No significant central canal stenosis. C5-6: Moderate narrowing of the disc. Endplate osteophytes. No disc herniation or bulge is identifi ed. No evidence of neural foraminal narrowing. No significant central canal stenosis. C6-7: Moderate loss of disc height. Endplate osteophytes. No disc herniation or bulge is identified . Bilateral neural foraminal narrowing. No significant central canal stenosis. C7-T1: No disc herniation or bulge is identified. No evidence of neural foraminal narrowing. No signi ficant central canal stenosis. IMPRESSION: Degenerative disc changes at C5-6 and C6-7 cause bilateral neural foraminal narrowing. No disc herni ation or significant central canal stenosis at any level. DATA REPOSITORY:
--- NOTE | 2023-01-06 08:00 | DI.US_ITS ---
APPROVED REPORT EXAM: Comprehensive 2D, Doppler, and color-flow Echocardiogram Patient Location: In-Patient Room/Bed: 225 Preparation Center Coordinator: Samantha Cai RDCS (AE) Indications: CVA Echo Enhancing Agent Indication: Rule out Shunt Agent(s) / Amount(s) Used: Agitated Saline 30.0 cc Comments: Contrast study was performed with 3 IV injections of 10ccs of agitated normal saline, at st, with cough and post valsalva maneuver. Negative contrast study for shunt flow. Other Information Study Quality: Adequate Conclusion The left ventricular wall thickness and chamber size. Ejection fraction is 35 to 40%. There is an a pical wall motion abnormality Normal right ventricular size and systolic function Left atrium is moderately dilated. Right atrial size is normal No intracardiac shunting is identified with injection of agitated saline Aortic valve is calcified and trileaflet with mild stenosis. Peak gradient is 27, mean 17 mmHg. Valerio culated aortic valve area is 1.2 cm??. There is no aortic regurgitation Mildly thickened mitral leaflets. There is moderate central mitral regurgitation Normal tricuspid valve with trace regurgitation. Estimated right ventricular systolic pressure is 25 mmHg Mildly dilated ascending aorta, 3.78 cm Wall motion Left Ventricle The left ventricle is normal size. Left ventricular systolic function is moderately decreased. There is normal left ventricular wall thickness. Regional wall motion abnormalities are noted. There is no ventricular septal defect visualized. LVEF is 35-40%. Right Ventricle Right ventricle is grossly normal in size. Right ventricular systolic function is grossly normal. Atria Left atrium is moderately dilated. The right atrium size is normal. The interatrial septum is intact with no evidence for an atrial septal defect. Saline bubble contrast intravenous injection does not d emonstrate PFO. Aortic Valve Aortic valve is calcified. Aortic valve is trileaflet. Mild aortic stenosis. Peak aortic valve gradi ent is 27.29mmHg. Highest mean aortic valve gradient is 17.2mmHg. Calculated KEISHA by the continuity eq uation is 1.2cm2. No aortic regurgitation is present. Mitral Valve Mitral valve leaflets are mildly thickened. No evidence of mitral valve stenosis. Moderate mitral reg urgitation. Tricuspid Valve The tricuspid valve is normal in structure. There is no tricuspid valve stenosis. Trace tricuspid reg urgitation. The RVSP is 25.5_ mmHg. Pulmonic Valve The pulmonary valve is normal in structure. There is no pulmonic valvular stenosis. Trace pulmonic re gurgitation. Great Vessels The aortic root is normal in size. The ascending aorta is mildly dilated. Aortic arch is normal in ca liber. IVC is normal in size and collapses >50% with inspiration. Pericardium There is no pericardial effusion. 2D Dimensions IVSD d PLAX 1.07 cm M: 0.6-1.2 Ao Root d 3.41 cm M: 3.1 - 3.7 LVPW d PLAX 0.98 cm M: 0.6 - 1.2 Ao Asc Diam d 3.78 cm M: 2.6 - 3.4 LVID d PLAX 5.22 cm M: 4.2 - 5.8 LVDs 4.34 cm M: 2.5 - 4.0 LV EF Teichholz 35.1 % FS 16.90 % LV EDV (Teich) 130.6 mL LV ESV (Teich) 84.8 mL M-Mode TAPSE 2.54 cm (M/F) >1.7 Auto EF LV EDV A4C 178.3 mL LV EDV A2C 161.0 mL LV EDV BP 174.7 mL LV ESV A4C 126.6 mL LV ESV A2C 96.1 mL LV ESV BP 114.5 mL LVEF(%) A4C 29.0 % LVEF(%) A2C 40.3 % LVEF(%) BP 34.5 % LV SV A4C 51.7 ml LV SV A2C 65.0 ml LV SV BP 60.2 ml LV CO A4C 2.8 L/min LV CO A2C 3.4 L/min LV CO BP 3.1 L/min HR A4C 53.97 BPM HR A2C 52.18 BPM LV EDV Index (BP) LV Strain Long Pk Overal Avg (s) 8.47 RV Strain Global Peak Long. Strain A4C 22.37 Global Peak Long. Strain A4C FW 33.79 LA Volume LA Length A4C 5.6 cm LA Length A2C 5.5 cm LA Area A4C s 25.33 cm2 LA Area A2C s 21.13 cm2 LA Vol A4C A-L 98.62 mL LA Vol A2C A-L 68.84 mL LA Vol Biplane A-L 82.5 mL LA Vol/BSA A4C A-L LA Vol/BSA A2C A-L LA Vol/BSA BP A-L 42.7 mL/m2 LA Vol A4C MOD 91.5 mL LA Vol A2C MOD 67.1 mL LA Vol BP MOD 79.7 mL RA Volume RA Area A4C 11.8 cm2 RA ESV A4C (A-L) 25.6mL RA Vol/BSA A4C A-L RA Length A4C 4.6 cm RA ESV A4C (MOD) 25.1mL LV Diastology MV E' medial 0.043 (>0.07 m/s) MV E Vmax 0.53 (0.4-1.3 m/s) MV E/E' MED 12.34 (<14) MV A Vmax 0.75 (0.4-1.3 m/s) MV E' lateral 0.037 (>0.1 m/s) E/A Ratio 0.7 MV E/E' LAT 14.11 (<14) MV E' Average 0.040 m/s MV E/E'(average) 13.17 Aortic Valve AoV Vmax 2.61 m/s LVOT Vmax 0.85 m/s AoV Peak Grad 27.3 mmHg LVOT Peak Grad 2.9 mmHg AoV Area (Vmax) 1.15 cm2 LVOT VTI 0.216 m AoV VTI 0.745 m LVOT Mean Grad 1.5 mmHg AoV Mean Ed. 1.98 m/s LVOT SV 76.62 mL AoV Mean Grad 17.2 mmHg LVOT Diam s 2.10 cm AoV Area (VTI) 1.03 cm2 Velocity Ratio 0.33 Mitral Valve MV DT 260 (160-240 msec) MV Vmax TIPS 0.86 m/s MV Mean Grad 1.0 (<2mmHg) MV VTI 0.359 m Pulmonary Valve PV Vmax 0.84 (0.5-1.5 m/s) RVOT Vmax 0.58 m/s PV Peak Grad 2.8 mmHg RVOT Peak Gr. 1.3 mmHg PV Mean Ed 0.60 m/s RVOT VTI 0.141 m PV Mean Grad 1.6 mmHg RVOT Mean Gr. 0.8 mmHg Tricuspid Valve RA Pressure 3.00 mmHg TR Vmax 2.37 m/s TV S' 0.11 m/s TR Peak Grad 22.4 mmHg RVSP (TR) 25.5 mmHg
--- NOTE | 2023-01-06 08:34 | PDOC.CMPRO ---
Date of service: 01/06/23 Time of Service: 08:34 Care Management Progress Note Progress Note Text Progress Note Text: S/O:Brody was sitting up in bed when CM met with him. He was in good spirits and shared that he continues to feel well. He has not had any further episodes of gait imbalance and did very well with PT this morning. He had an MRI of his brain today which was negative for any infarcts and an Echocardiogram. No report on the ECHO is available yet. Brody will also have a Neurology Consult with Dr. Haywood. If there are no new findings of concern, it is possible he may be discharged later in the day. A: Brody is an 82 year old man admitted on 01/04/23 with a CVA P:Anticipate Ken will be discharged home, likely with new home health services for PT. He will follow up with his PCP and plan of care and transport with family. CM will follow and continue to assess for discharge planning concerns.
[2023-01-06] MEDS: Atenolol 25 MG TAB PO (08:37)
[2023-01-06] MEDS: Losartan 50 MG TAB PO (08:37)
[2023-01-06] MEDS: Tamsulosin 0.4 MG CAPCR 0.8 MG PO (08:37)
[2023-01-06] MEDS: Cholecalciferol (Vitamin D3) 1,000 UNIT TAB 1000 UNITS PO (08:37)
[2023-01-06] MEDS: Clopidogrel 75 MG TAB PO (08:37)
[2023-01-06] MEDS: Atorvastatin 40 MG TAB 80 MG PO (08:38)
[2023-01-06] MEDS: Aspirin 81 MG CHEW PO (08:38)
[2023-01-06] MEDS: Ascorbic Acid 500 MG TAB 1000 MG PO (08:38)
--- NOTE | 2023-01-06 10:06 | OT.INIE ---
Occupational Therapy Notes Inpatient Occupational Therapy Evaluation Date: 01/06/23 Referring Doctor: Dr. Winter OT Orders: Non urgent Precautions: Fall, Standard, Full PATIENT PROFILE/ADMITTING DIAGNOSIS: Pt is an 82 year old male admitted to through the ED to Med Surg with a dx of stroke, (B) leg weakness, DM with peripheral angiopathy, onchymycosis, peripheral neuropathy. Past Medical History: All Active Problems (Updated 01/05/23 @ 06:15 by Leonidas Winter) Hypomagnesemia (Acute) Ataxia due to acute cerebrovascular disease (Acute) Diabetes mellitus with peripheral angiopathy (Acute) Onychomycosis (Acute) Type 2 diabetes mellitus with peripheral neuropathy (Acute) Chronic seborrheic dermatitis (Acute) Nail dystrophy (Acute) Ischemic cardiomyopathy (Chronic) Hyponatremia (Chronic) Peripheral neuropathy (Acute) Cataract, bilateral (Acute) 11/08/20 Eye Exam ([facility])Diabetic retinopathy of right eye (Acute ~12/08/20) mild, left normalIncomplete bladder emptying (Acute) 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) Gastro-esophageal reflux disease without esophagitis (Chronic 06/07/98) s/p esophageal dilatation 1998 Essential hypertension (Chronic 02/21/05) Diabetes mellitus (Chronic 05/30/06) A1C 6.9 01/2010 no retinopathy 10/14/14; goal A1c<7.5 Coronary atherosclerosis of [place] coronary vessel (Chronic 11/08/93) HI AND ANGIOLPLASTY ANKORAGE 11/1993; stent 1996 Actinic keratosis (Chronic 03/11/83) Flori arias; Dr Cotton 2012 Dr Del[place] [facility] [place] History Repair of inguinal hernia (03/08/13) left KSD Social History/Home Situation: Lives in a private home with his . He notes that he is (I) with driving but moving away from this, (I) with dressing with difficulty with his socks, difficulty with transferring in and out of the tub at times, pt states that he is (I) With meal prep. SUBJECTIVE: Pt states that he is doing well, he notes that he is probably going home today and feels that he is close to his baseline. OBJECTIVE: General Observation: Pleasant, IV in (L) UE Mental Status: A&Ox4 ROM: RUE AROM WFL L UE AROM WFL STRENGTH: RUE 5.5 LUE 5/5 FUNCTIONAL MOBILITY/ADLS: Self Care Training [id number]: OT educated and trained pt in dressing with adaptive equipment including sock aid, dressing stick, and steeple jack. Pt was receptive to this and able to perform this with min vc throughout. BALANCE: Static sitting Normal Dynamic Sitting Normal Static Standing Good Dynamic Standing Good INFORMED CONSENT/EDUCATION: Pt instructed in purpose of OT Consult and plan of care. ASSESSMENT: Patient is a 82-year-old male referred to occupational therapy services with diagnosis of stroke, leg weakness (B), DM with peripheral angiopathy, onchymycosis, peripheral neuropathy. Patient was seen for OT consult and later discharged that day to return home with HH services. Discharge from skilled OT services at this time. Patient is assessed as a Moderate 66900 complexity based on the following: History: see above Examination: see functional limitations as noted above Presentation: evolving Decision Making: moderate GOALS- N/A seen for OT consult only. PLAN OF CARE/TREATMENT PLAN: 1x/day, 5 days/ week x 1week Initiate Occupational Therapy Services for bathing, dressing, grooming, toileting, eating, transfer training. DISCHARGE RECOMMENDATIONS Home with PT/OT services. TREATMENT TIME/MINUTES/CODES [id number], [id number], 25 minutes [facility] [place], [place]
[2023-01-06 10:55] VITALS: BP 151/76; PULSE 56; RESP 17; TEMP 36.5; O2SAT 96
--- NOTE | 2023-01-06 12:32 | W.PM.DS.N ---
Date of service: 01/06/23 Time of Service: 12:32 DS: Diagnosis Discharge Diagnosis (1) Ataxia due to acute cerebrovascular disease: Status: Acute (2) Hypomagnesemia: Status: Acute (3) Diabetes mellitus: Status: Chronic (4) Ischemic cardiomyopathy: Status: Chronic (5) Essential hypertension: Status: Chronic (6) Hyponatremia: Status: Chronic (7) Contraindication to deep vein thrombosis (DVT) prophylaxis: Status: Acute (8) Discharge planning issues: Status: Acute Discharge Plan Disposition Patient Disposition: Home W/Home Health Services Condition: Improving Discharge Details Reason For Visit: CVA, HNT, CAD, NIDDM Admit Date/Time: 01/04/23 20:57 Admit Provider: Leonidas Winter Attending Provider: Leonidas Winter Primary Care Provider: Russel Steen [facility] Course Hospital Course: This is 82-year-old patient?? presented with ataxia and sudden inability to walk in the ED at [facility] on 01/04/2023. CT of the head and neck as well as CT of the head showed no findings other than larger than usual ventricular system with atrophy with normal pressure hydrocephalus. The case was discussed Dr. Naqvi from neurology at [facility] and deemed not to be sudden onset. Neurology also concurred with the likelihood that the ataxia or apraxia is likely due to a posterior fossa CVA. The patient continue to ?display problems ambulating and walking without stumbling in the ED. Labs in the Ed were unremarkable except for WBC 11.21, and vital signs were stable. The hospitalist was consulted and the patient was admitted for evaluation and management of ambulatory dysfunction and stroke evaluation. During his stay, the patient was able to ambulate with walker during physical therapy sessions resuming is baseline ambulatory functions. MRI head and brain were negative except for atrophy, mild white matter changes of small vessel disease and degenerative disc changes at C5-6 and C6-7 cause bilateral neural foraminal narrowing. Echocardiogram with bubble study demonstrated no septal defect, ejection fraction was ?35 to 40%.The patient will be discharge on his current dose of Losartan and goal directed medical therapy for heart failure with reduced? ejection fraction will be discussed upon follow up with cardiology. Telemetry showed first degree AV block, HR 55 to 71. Neurology consult was completed and Dr. Rodas recommends continuing Plavix for 18 more days for a total of 21 days of therapy, continuing aspirin 81 mg, 30-day personnel monitor at discharge today 01/06 and a follow-up with neurology. The patient will follow-up with cardiology and will also be discharge home with PCP and cardiology follow up for goal directed medical therapy for heart failure within 7 days. The patient was seen by physical therapy/ occupational therapy and will continue with physical therapy/occupational therapy home health for to assist in global strengthening Home Meds and New Rx's Prescriptions: New aspirin [Children's Aspirin] 81 mg Tablet,Chewable 81 mg PO DAILY Qty: 30 0RF clopidogrel 75 mg Tablet 75 mg PO DAILY Qty: 18 0RF Continued omeprazole 20 mg capsule,delayed release(DR/EC) 20 mg PO DAILY Qty: 90 3RF Levemir FlexPen 100 unit/mL (3 mL) insulin pen 10 unit subcut QAM Qty: 15 3RF (DME) pen needle, diabetic [Pen Needle] 31 gauge x 5/16 needle See Rx Instructions .ROUTE .MEDSUPPLY Qty: 100 3RF Rx Instructions: As directed to daily. Dispense covered brand. ascorbic acid (vitamin C) 1,000 MG tablet 1,000 mg PO DAILY cholecalciferol (vitamin D3) 1,000 UNIT capsule 1,000 unit PO DAILY Psyllium [Metamucil] 1 EACH packet 1 ea PO BID PRN nitroglycerin [Nitrostat] 0.4 MG tablet, sublingual 0.4 mg Buccal q15m PRNQty: 25 Rx Instructions: if needed for angina (DME) blood-glucose meter Misc See Rx Instructions .ROUTE .MEDSUPPLY Qty: 1 0RF Rx Instructions: As directed to check blood glucose daily. No insulin. Dispense covered brand. (DME) FreeStyle Lite Strips Strip 1 ea Miscellaneous TID Qty: 300 3RF Rx Instructions: to control hyperglycemia, E11.65. test twice daily metformin 500 mg tablet extended release 24 hr 1,000 mg PO BID Qty: 270 3RF losartan 50 mg tablet 50 mg PO DAILY Qty: 90 3RF atorvastatin 40 mg tablet 40 mg PO DAILY Qty: 90 3RF Rx Instructions: TO LOWER LDL CHOL UNDER 70 DUE TO CORONARY DISEASE atenolol 25 mg tablet 25 mg PO DAILY Qty: 90 3RF tamsulosin 0.4 mg capsule 0.8 mg PO DAILY Qty: 180 3RF Rx Instructions: FOR URINARY SX (Incr Dr Dorado for incr retention 04/2016) glipizide 5 mg tablet 5 mg PO BID Qty: 180 3RF Rybelsus 3 mg tablet 3 mg PO DAILY Held naproxen 500 mg tablet 500 mg PO BID PRN (Reason: pain) Qty: 60 1RF Hold Instructions: Resume on 01/29/23. Resume as per PCP after Plavix Discontinued aspirin [Aspirin Low-Strength] 81 MG tablet,chewable 81 mg PO DAILY Discharge Instructions Stand Alone Forms: Nursing Discharge Form Referrals: Rosalba Jernigan MD [ [facility] STAFF PHYSICIAN] - (Please call Dr Jacinto Office to make an Appointment @ [phone] This is 82-year-old patient presented with ataxia and sudden inability to walk in the ED at [facility] on 01/04/2023. CT negative, MRI negative, Echo with bubble study negative for septal defect, LVEF 35-40%, going home on Losartan only.) Russel Steen DO [Primary Care Provider] - 01/13/23 3:30 pm Marjorie Bach MD [ [facility] STAFF PHYSICIAN] - (Please call Dr Phillips Office to make an Appointment @ [phone] This is 82-year-old patient presented with ataxia and sudden inability to walk in the ED at [facility] on 01/04/2023.CT of the head and neck as well as CT of the head showed no acute findings.Neurology consult was completed and Dr. Rodas recommends continuing Plavix for 18 more days for a total of 21 days of therapy, continuing aspirin 81 mg, 30-day personnel monitor and a follow-up with neurology.) Activity:: Activity as Tolerated Equipment/Supplies:: Walker Diet:: diabetes consistency CHO /heart healthy Discharge Orders Discharge Orders: Discharge Order (Routine); Ordered 01/06/23 Ordered By: Hailey Solis Other Ambulatory Orders: Cardiac Event Recorder (Routine) Timeframe: 30 Days Facility: [facility] - Location: Respiratory Therapy Ordered By: Hailey Solis DS: Summary Time Spent with Patient providing and/or coordinating discharge services: Greater than 30 minutes Status at Discharge Functional status at discharge: uses cane/walker Overall status at discharge: patient is progressing back to baseline Mental Status: mental status grossly normal Speech and Movement: speech and movement normal Mood: congruent mood Affect: normal affect Exam Narrative Exam Narrative: Constitutional The patient is lying in bed comfortable, gets up and walk with walker without cues or physical help and cooperative during the interview. The patient is well groomed without acute distress and has average body habitus HENMT: Head is atraumatic, normocephalic, no lymphadenopathy. Facial structures with normal appearance Eyes: Well aligned, intact ROM Neck: Normal ROM, no meningeal signs Neuro:alert and oriented to self, person, place time and situation. No neurological focal deficit, PERRLA on ambient light 2 Chest:Chest is symmetrical and normal appearance Resp: Normal respiratory pattern, speaks in full sentences, unlabored breathing, clear lung bilaterally Cardio: tele 1AVB HR 65-70,regular rhythm, S1, S2, capillary refill<3 sec., bilateral radial and dorsalis pedis pulses are positive, palpable GI: Abdomen is not distended, soft and non tender, bowel sounds are present : Negative Costovertebral angle tenderness, no bladder distension Back/spine/Pelvis: No back tenderness, normal alignment Integumentary: No skin lesions or rash Extremities: strength 5/5 to bilateral lower and upper extremities Psych: RASS 0, congruent mood and normal affect. Psych Mental Status: mental status grossly normal Speech and Movement: speech and movement normal Mood: congruent mood Affect: normal affect DS: Data Vitals/I&O Vitals and I&O: Vital Signs Temperature 36.5 C 01/06/23 10:55 Temperature Source Tympanic 01/06/23 10:55 Pulse 56 L 01/06/23 10:55 Pulse Rhythm Regular 01/05/23 22:27 Pulse 71 01/04/23 22:20 Respiratory Rate 17 01/06/23 10:55 Respiratory Effort Normal, Non-Labored 01/06/23 07:45 Respiratory Depth Normal 01/06/23 07:45 Respiratory Pattern Normal 01/06/23 07:45 Blood Pressure 151/76 H 01/06/23 10:55 Blood Pressure Mean 115 01/04/23 16:31 Blood Pressure Position Supine 01/04/23 15:59 Pulse Oximetry 96 01/06/23 10:55 Oxygen Delivery Method Room Air 01/06/23 10:55 Oxygen Flow Rate 0 01/06/23 10:55 Pain Level 0 01/06/23 10:55 Comment Nurse notified about BP. 01/06/23 07:57 Intake & Output 01/05/23 01/06/23 01/06/23 23:59 11:59 23:59 Intake Total 810 / 1100 240 / 240 Output Total 525 / 1400 850 / 850 Balance 285 / -300 -610 / -610 Intake: IV Oral 800 / 1040 240 / 240 Output: Urine 525 / 1400 850 / 850 Other: Urine Color Yellow Yellow Urine Appearance Clear Clear Urine Odor None Normal Voiding Methods Urinal Urinal Data Completed and Pending Labs on day of discharge: Labs from last 24 hours 01/06/23 05:41 WBC 7.79 RBC 3.75 L Hgb 11.8 L Hct 34.2 L MCV 91 MCH 31.5 MCHC 34.5 RDW 12.3 Plt Count 195 MPV 9.4 Immature Gran % 0.4 Neutrophils % 74.3 Lymphocytes % 12.2 Monocytes % 8.5 Eosinophils % 4.1 Basophils % 0.5 Nucleated RBC % 0.0 Absolute Neutrophils 5.79 Absolute Lymphocytes 0.95 L Absolute Monocytes 0.66 Absolute Eosinophils 0.32 Absolute Basophils 0.04 Sodium 136 Potassium 4.1 Chloride 102 Carbon Dioxide 24.3 Anion Gap 9.7 BUN 10 Creatinine 0.8 Est GFR (CKD-EPI 2020) 88.36 Glucose 126 H Calcium 8.6 Magnesium 1.8 PFSH All Active Problems (Updated 01/05/23 @ 18:43 by Hailey Solis APRN) Discharge planning issues (Acute) Contraindication to deep vein thrombosis (DVT) prophylaxis (Acute) Hypomagnesemia (Acute) Ataxia due to acute cerebrovascular disease (Acute) Diabetes mellitus with peripheral angiopathy (Acute) Onychomycosis (Acute) Type 2 diabetes mellitus with peripheral neuropathy (Acute) Chronic seborrheic dermatitis (Acute) Nail dystrophy (Acute) Ischemic cardiomyopathy (Chronic) Hyponatremia (Chronic) Peripheral neuropathy (Acute) Cataract, bilateral (Acute) 11/08/20 Eye Exam ([facility]) Diabetic retinopathy of right eye (Acute ~12/08/20) mild, left normal Incomplete bladder emptying (Acute) Dr. 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) Gastro-esophageal reflux disease without esophagitis (Chronic 06/07/98) s/p esophageal dilatation 1998 Essential hypertension (Chronic 02/21/05) Diabetes mellitus (Chronic 05/30/06) A1C 6.9 01/2010 no retinopathy 10/14/14; goal A1c<7.5 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 Father , 75 Diabetes Social History Smoking/Tobacco Use Status: Former Tobacco Use Smokeless tobacco user: chewing tobacco Smoking risk assessment performed?: Yes Alcohol Intake: current Alcohol Intake frequency: holidays/special occasions only Drug use: Never Substance use type: does not use Household members: spouse Housing: house Number of Children: 8 Communication Needs: Hard of Hearing and Corrective Lenses Current gender identity: male What is your relationship status?: Panel score (0-1 are the most socially isolated patients): 1 What type of physical activity do you participate in: other Details: treadmil Duration: < 15 minutes/day Frequency: 3-4 times per week Seatbelt use: always Drive intox or ride w/intox 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
[2023-01-06] MEDS: Insulin Aspart 300 UNITS/3 ML PEN SC ×2 (13:35→17:51)
--- NOTE | 2023-01-06 14:39 | PTTR_ITS ---
Date of service: 01/06/23 Time of Service: 14:12 PT Notes Visit Reasons: CVA, HNT, CAD, NIDDM Inpatient Physical Therapy Treatment Note [facility] Date: 01/06/23 PRECAUTIONS: Fall, standard, activity as tolerated. SUBJECTIVE: Patient reports feeling fine, no pain. OBJECTIVE: Patient long sitting in bed, FINANCIAL SERVICE REPRESENTATIVE Hailey present explaining TIA to patient, , and Hamilton. ?Hamilton wants to check out patient's mobility before agreeing to take him home. ? PAIN: none reported. VITALS: closely monitored by nursing staff via telemetry. ? BED MOBILITY/TRANSFERS? Rolling L/R: not assessed Supine-sit: modified independent with elevated HOB? Sit-supine: not assessed ? Sit-stand: independent? Stand-sit: independent ? Bed-Chair: SBA ? Chair-bed: SBA ? Therapeutic Exercises ([id number]): Direct one-on-one instruction in therapeutic exercises to develop strength, endurance, range of motion and flexibility. Ambulation ? Assistive Device: FWW? Weight bearing: full Assist: SBA, CGA on stairs? Distance:? 200 feet ? Deviation: reduced susan, reduced step length, reduced step height, adequate toe off. Patient's wants to see him walk without assistive device, which patient is able to do CGA for 20 feet with no LOB, no SOB, no c/o pain. Significantly reduced step length without AD, reduced arm swing. Stairs: Ascends and descends 4 six inch stairs and 6 four inch stairs with bilateral railings and CGA. Patient c/o fatigue in right thigh. ? Provided skilled instruction in proper exercise performance Provided skilled manual cues to facilitate proper muscle recruitment and/or form. ASSESSMENT:? Patient tolerates therapy well. Hamilton accompanies patient during therapy, reports being very impressed and much less concerned about patient's ability to manage at home. PLAN: Continue global strengthening per plan of care until patient is medically cleared for discharge. TREATMENT CODE/TIME: 24 minutes beginning at 14:12
--- NOTE | 2023-01-06 15:04 | PDOC.CMDIS ---
Date of service: 01/06/23 Time of Service: 15:04 LACE Index Scoring Tool Questions: Length of Stay (in days): 2 Was the patient admitted via the E.D.?: Yes Comorbidities: Diabetes w/o Complication E.D. Visits: 1 Answers: Total Score: 7 Risk of Readmission: Low Risk Care Management Discharge Plan Reason for Hospitalization: ataxia, r/o CVA Discharge Plan: Ken will be discharged home with new home health services for PT. He will follow up with his PCP and plan of care and transport with family. Patient/Family Education Needs: Review of discharge instructions, activity, limitations, follow up plan, discuss Ask me Three Services Needed at Discharge: Home Health Care Services
[2023-01-06 15:27] VITALS: BP 120/63; PULSE 55; RESP 16; TEMP 36; O2SAT 96
--- NOTE | 2023-01-06 16:03 | W.NEUROCONSU ---
Date of service: 01/06/23 Time of Service: 16:03 Assessment and Plan Assessment and plan (1) Leg weakness, bilateral: Status: Acute (2) Stroke: Status: Chronic Assessment and plan: Mr. Schmidt presents with what sounds like acute onset bilateral LE weakness which has almost completely resolved. On my exam today, I cannot detect any weakness. He may have subtle L leg ataxia - but this testing was complicated by pain, so I am not sure that it was present. Review of PT notes on 01/05/23 noted symmetric bilateral LE weakness without ataxia. Given the acute nature of his symptoms - though unusual - stroke is in the differential. Though again - his symptoms were unusual. His brain MRI did not show any ischemia. An MICHAELA variant stroke could cause bilateral LE weakness - but he does not seem to have this. A small brainstem stroke could be missed on MR imaging and could rarely cause bilateral LE weakness - however, unusual as it would usually also cause other symptoms such as arm weakness, etc. The only other possible explanation that I can come up with besides stroke is due to metabolic derangement - notably his hyponatremia. However, again, without associated encephalopathy, this too seems unlikely. And as stroke is obviously the ddx with the biggest implications, I think we have to continue to treat and work-up as stroke. Etiology of stroke could be due to very small vessel disease vs cardiombolic source - noted apical wall motions with reduced EF and enlarging LA. Work-up: -30 day monitor technician at discharge to look for afib Medications: -aspirin 81mg daily for secondary stroke prevention -clopidogrel 75mg daily for secondary stroke prevention x21 days -atrovastatin 40mg daily for secondary stroke prevention (LDL already at goal) Other: -Physical therapy for leg weakness, gait training He should follow-up in neurology in 4-6 weeks. History of Present Illness History of Present Illness Chief Complaint: weakness Narrative: Handedness: right. HPI: Mr. Schmidt is an 82 year-old with hypertension, hyperlipidemia, DM2 with known peripheral neuropathy, ischemic cardiomyopathy, cardiac valve disease, BPH, and GERD. His Pita and ?son Hamilton were at bedside. Of interest, he was started on insulin 1 week ago. He and his note significant difficulty managing this/understanding what to do. They note no low sugars in the last week. On 01/04/23, Mr. Schmidt was outside doing chores when his legs became acutely weak causing him to fall to the ground. He had to crawl and use his arms to get himself back into his ATV to get back to the house. brought a walker to him and he still was unable to ambulate into the house without again falling to his knees. He denies inability to control his leg. He had no numbness nor any pain in his legs or back. He had no AMS/confusion. He was brought to the [facility] ER where he underwent the work-up as below. He already take aspirin 81mg daily. He was started on DAPT due to concern for stroke. His leg strength has significantly improved. He is able to ambulate as of yesterday. He feels nearly back to his baseline. He notes that his legs muscles are a little sore today. He attributes this to straining while weak. Work-up: -Labs (01/04/23): W 11.21 -> 7.83, Na 129 -? 138, Hgb 12.3, Plt 211, INR 1.2, Cr 0.8, glucose 119, Ca 8.9, Mag 1.6 -> 2.0, LFTs ok, trop x 2 neg, LDL 39, UA neg -A1c (11/19/22): 7.5 -CTH (01/04/23): No acute findings. Moderate generalized atrophy and chronic vascular changes. Old R caudate lacune. I reviewed these images personally and this is my personal interpretation. -CTA head/neck (01/04/23): plaque but no significant stenosis. I reviewed these images personally and this is my personal interpretation. -CTH (01/05/23): No acute findings. I reviewed these images personally and this is my personal interpretation. -MRI brain w/o (01/06/23): No acute findings. Extensive white matter changes and atrophy. Old R caudate lacune. I reviewed these images personally and this is my personal interpretation. -MRI c-spine w/o (01/06/23): No significant central stenosis. Degenerative changes with L>R NF narrowing at C5-6 and C6-7 > C7-T1. I reviewed these images personally and this is my personal interpretation. -TTE (01/06/23): EF 35-40%. Apical wall motion abnormality. LA moderately dilated. Moderate mitral regurgitation. No PFO. Review of Systems All systems reviewed & are unremarkable except as noted in HPI and below PFSH All Active Problems (Updated 01/06/23 @ 19:16 by Marjorie Bach MD) Stroke (Chronic) Leg weakness, bilateral (Acute) Discharge planning issues (Acute) Contraindication to deep vein thrombosis (DVT) prophylaxis (Acute) Hypomagnesemia (Acute) Ataxia due to acute cerebrovascular disease (Acute) Diabetes mellitus with peripheral angiopathy (Acute) Onychomycosis (Acute) Type 2 diabetes mellitus with peripheral neuropathy (Acute) Chronic seborrheic dermatitis (Acute) Nail dystrophy (Acute) Ischemic cardiomyopathy (Chronic) Hyponatremia (Chronic) Peripheral neuropathy (Acute) Cataract, bilateral (Acute) 11/08/20 Eye Exam ([facility]) Diabetic retinopathy of right eye (Acute ~12/08/20) mild, left normal Incomplete bladder emptying (Acute) Dr. Lyudmila Metz yearly at [facility] Sensorineural hearing loss of both ears (Acute) Aortic stenosis (Chronic) Other and unspecified hyperlipidemia (Chronic 02/21/05) GOAL LDL<70 Osteoarthrosis (Chronic 04/26/11) hands, tendons, Heberden's nodes; some low back Mitral regurgitation (Chronic 11/12/14) mod on ECHO 11/2014; Dr Ortiz yearly in May Hearing difficulty (Chronic 06/21/14) sensorineural [place] loss, bilateral hearing aids BPH w urinary obs/LUTS (Chronic 03/26/10) Gastro-esophageal reflux disease without esophagitis (Chronic 06/07/98) s/p esophageal dilatation 1998 Essential hypertension (Chronic 02/21/05) Diabetes mellitus (Chronic 05/30/06) A1C 6.9 01/2010 no retinopathy 10/14/14; goal A1c<7.5 Coronary atherosclerosis of [place] coronary vessel (Chronic 11/08/93) [place] AND ANGIOLPLASTY ANKORAGE 11/1993; stent 1996 Actinic keratosis (Chronic 03/11/83) Flori arias; Dr Cotton 2012 Dr Delatorre [facility] [place] Derm Surgical History Repair of inguinal hernia (12/30/13) left KSD Family History Mother No problems noted. Father , 75 Diabetes Social History Smoking/Tobacco Use Status: Former Tobacco Use Smokeless tobacco user: chewing tobacco Smoking risk assessment performed?: Yes Alcohol Intake: current Alcohol Intake frequency: holidays/special occasions only Drug use: Never Substance use type: does not use Household members: spouse Housing: house Number of Children: 8 Communication Needs: Hard of Hearing and Corrective Lenses Current gender identity: male What is your relationship status?: Panel score (0-1 are the most socially isolated patients): 1 What type of physical activity do you participate in: other Details: treadmil Duration: < 15 minutes/day Frequency: 3-4 times per week Seatbelt use: always Drive intox or ride w/intox feedmobile driver: No Working smoke detector in home: Yes Fire extinguisher in home: Yes Carbon monox detector in home: Yes Do you feel safe at home: Yes Do you feel safe in your relationship?: Yes Visit Medication and Allergies Active Medications Generic Name Dose Route Start Last Admin Trade Name Freq PRN Reason Stop Dose Admin Acetaminophen 0 mg 01/04/23 21:02 01/05/23 22:33 Acetaminophen 325 Mg Tab PO 650 mg Q4H PRN PRN Administration Al Hydrox/Mg Hydrox/Simethicone 30 ml 01/04/23 21:02 Mylanta Suspension 30 Ml Cup PO Q2H PRN PRN Ascorbic Acid 1,000 mg 01/05/23 08:30 01/06/23 08:38 Ascorbic Acid 500 Mg Tab PO 1,000 mg DAILY ERIC Administration Aspirin 81 mg 01/05/23 08:30 01/06/23 08:38 Aspirin 81 Mg Chew PO 81 mg DAILY ERIC Administration Atenolol 25 mg 01/05/23 08:30 01/06/23 08:37 Atenolol 25 Mg Tab PO 25 mg DAILY ERIC Administration Atorvastatin Calcium 80 mg 01/05/23 08:30 01/06/23 08:38 Atorvastatin 40 Mg Tab PO 80 mg DAILY ERIC Administration Cholecalciferol 1,000 units 01/05/23 08:30 01/06/23 08:37 Cholecalciferol (Vitamin D3) 1,000 Unit Tab PO 1,000 units DAILY ERIC Administration Clopidogrel Bisulfate 75 mg 01/05/23 08:30 01/06/23 08:37 Clopidogrel 75 Mg Tab PO 75 mg DAILY ERIC Administration Dextrose 0 gm 01/04/23 21:24 Glucose Oral Gel 15 Gm/37.5 Gm Tube PO DIRECTED PRN Dextrose/Water 0 gm 01/04/23 21:24 Dextrose 50%-Water 25 Gm/50 Ml Syr IVP DIRECTED PRN Docusate Sodium 100 mg 01/04/23 21:02 Docusate Sodium 100 Mg Cap PO TID PRN PRN IV Miscellaneous Supplies 1 each 01/04/23 21:00 Iv Access IV DIRECTED [facility] Insulin Aspart 0 units 01/04/23 22:00 01/06/23 13:35 Insulin Aspart 300 Units/3 Ml Pen SC 4 units 0800,1200,1700,2200 [facility] Administration Protocol Losartan Potassium 50 mg 01/05/23 08:30 01/06/23 08:37 Losartan 50 Mg Tab PO 50 mg DAILY ERIC Administration Magnesium Hydroxide 30 ml 01/04/23 21:02 Milk Of Magnesia 30 Ml Cup PO DAILY PRN PRN Nitroglycerin 0.4 mg 01/04/23 21:06 Nitroglycerin 0.4 Mg Tab SL Q5 MIN PRN X3 PRN Pantoprazole Sodium 40 mg 01/05/23 07:30 01/06/23 07:18 Pantoprazole 40 Mg Tabcr PO 40 mg DAILY@0730 ERIC Administration Polyethylene Glycol 17 gm 01/04/23 21:02 Polyethylene Glycol 3350 17 Gm Packet PO DAILY PRN PRN Constipation Sodium Chloride 0 ml 01/04/23 20:57 Normal Saline Flush 10 Ml Syr IVP PRN PRN Tamsulosin HCl 0.8 mg 01/05/23 08:30 01/06/23 08:37 Tamsulosin 0.4 Mg Capcr PO 0.8 mg DAILY ERIC Administration Allergies Penicillins Allergy (Unknown, Verified 12/23/22 14:24) SWELLING lactose Adverse Reaction (Verified 12/23/22 14:24) Diarrhea Exam Narrative Exam Narrative: Physical Exam: Gen: Patient of apparent stated age, NAD Head and face: no facial or cranial abnormalities Neck: Supple, no meningismus, no occipital tenderness CV: + S1, S2, RRR, no murmur Resp: CTA B/L Abd: soft, nontender, nondistended Ext: No edema. No clubbing or cyanosis. No bony deformity. Neuro Exam: Language: fluency, naming, repetition, and comprehension intact; Mental Status: AAOx3, current events intact, fund of knowledge intact; Speech: no dysarthria Cranial nerves: Funduscopy: not performed CN II: visual charles intact CN III, IV, : extraocular movements intact, no nystagmus, pupils symmetric and reactive to light CN V: face sensation intact to LT and PP CN VII: no facial asymmetry noted CN VIII: hearing intact bilaterally CN IX, X: palate rises symmetrically CN XI: trapezius/SCM 5/5 bilaterally CN XII: protrudes tongue symmetrically Sensory: intact to LT, PP in all extremities Motor: bulk and tone intact. Fine motor movements intact bilaterally. No pronator drift. Strength 5/5 throughout including the deltoids, biceps, triceps, wrist extensors, hip flexors, knee flexors, knee extensors, ankle flexors, and ankle extensors. Reflexes: 1+/hyporeflexic throughout at the biceps, triceps, brachioradialis, patella, and achilles tendons bilaterally; toes down going bilaterally; Coordination: FTN intact bilaterally; ?subtle ataxia L HTS but complicated by upper leg pain Gait: not seen Results Last Vital Signs Temp 96.8 F L 01/06/23 15:27 Pulse 55 L 01/06/23 15:27 Resp 16 01/06/23 15:27 BP 120/63 01/06/23 15:27 Pulse Ox 96 01/06/23 15:27 Labs 01/06/23 05:41 01/06/23 05:41 Labs: Laboratory Results - last 24 hr 01/06/23 05:41 WBC 7.79 RBC 3.75 L Hgb 11.8 L Hct 34.2 L MCV 91 MCH 31.5 MCHC 34.5 RDW 12.3 Plt Count 195 MPV 9.4 Immature Gran % 0.4 Neutrophils % 74.3 Lymphocytes % 12.2 Monocytes % 8.5 Eosinophils % 4.1 Basophils % 0.5 Nucleated RBC % 0.0 Absolute Neutrophils 5.79 Absolute Lymphocytes 0.95 L Absolute Monocytes 0.66 Absolute Eosinophils 0.32 Absolute Basophils 0.04 Sodium 136 Potassium 4.1 Chloride 102 Carbon Dioxide 24.3 Anion Gap 9.7 BUN 10 Creatinine 0.8 Est GFR (CKD-EPI 2020) 88.36 Glucose 126 H Calcium 8.6 Magnesium 1.8
--- NOTE | 2023-01-06 16:42 | STREC_ITS ---
Date of service: 01/06/23 Time of Service: 12:00 Speech Therapy Recommendations Report ST Recommendations: STEAM TABLE ASSOCIATE consultation received- patient admitted 01/05 following acute onset difficulty with walking, with question of TIA vs CVA. STEAM TABLE ASSOCIATE evaluation attempted at 12:00, however patient off the floor for MRI/echo at this time. Per review of notes, MRI is found to be unremarkable for acute event. RN denies any concerns with speech/word retrieval/swallowing, anticipate discharge this evening- thus will complete STEAM TABLE ASSOCIATE order at this time. Coding
--- NOTE | 2023-01-06 16:42 | PDOC.STREC ---
Date of service: 01/06/23 Time of Service: 12:00 Speech Therapy Recommendations Report ST Recommendations: GRAIN MERCHANDISER consultation received- patient admitted 01/05 following acute onset difficulty with walking, with question of TIA vs CVA. GRAIN MERCHANDISER evaluation attempted at 12:00, however patient off the floor for MRI/echo at this time. Per review of notes, MRI is found to be unremarkable for acute event. RN denies any concerns with speech/word retrieval/swallowing, anticipate discharge this evening- thus will complete GRAIN MERCHANDISER order at this time. Coding
--- NOTE | 2023-01-06 17:52 | PDOC.HHF2F ---
Home Health Referral Home Health Orders Clinical synopsis of why skilled professionals are needed: This is 82-year-old patient?? presented with ataxia and sudden inability to walk in the ED at [facility] on 01/04/2023. CT of the head and MRI negative. Symptoms resolving , needs physical therapy to continue to improve global strength Physical Therapist: Check all that apply Increase strength & endurance for safe mobility at home: Ordered To design/establish home maintenance program: Ordered Fall reduction therapy program for patient with history of frequent falls: Ordered Home safety evaluation and teaching/gait training including stair management (if applicable): Ordered Better Breathing Program: Ordered Occupational Therapist: Evaluate and treat for patient unable to perform ADL/IADL/self-care: Ordered Upper extremity strengthening, range and motion: Ordered Road Gang Supervisor: Assist with community resources: Ordered Assist with local intermodal truck driver care planning: Ordered Encounter Date and Reason: I certify that a FTF encounter for this patient was performed on January 06, 2023 and that such encounter was related to the primary reason the patient requires home health services. The encounter was conducted in the following manner: By me as the certifying physician, BRICK OFFBEARER, PA or By an inpatient physician, BRICK OFFBEARER or PA during an inpatient stay who communicated findings to me, Certification And Authentication I certify that I composed the above information based on my clinical judgment relating to this patient's medical condition and, if applicable, clinical findings communicated to me by the NPP or inpatient physician who performed the FTF encounter. Name of Provider that will be monitoring home health services: PCP
== END 2023-01-06 18:51 | disposition home health service (06) | DRG 65 ==
LOC: ER 21:30 → MS 22:38
PROVIDERS: Family Medicine; Nurse Practitioner Acute Care; Admitting Provider Family Medicine; Emergency Provider Emergency Medicine; PCP Family Medicine; Visit Provider Family Medicine
DX: I63.89 Other cerebral infarction (principal); E87.1 Hypo-osmolality and hyponatremia; G91.2 (Idiopathic) normal pressure hydrocephalus; I67.89 Other cerebrovascular disease; R27.0 Ataxia, unspecified; E83.42 Hypomagnesemia; E11.42 Type 2 diabetes mellitus with diabetic polyneuropathy; Z79.4 Long term (current) use of insulin; I25.5 Ischemic cardiomyopathy; I10 Essential (primary) hypertension; M50.322 Other cervical disc degeneration at C5-C6 level; I44.0 Atrioventricular block, first degree; B35.1 Tinea unguium; E11.319 Type 2 diabetes mellitus with unspecified diabetic retinopathy without macular edema; R33.8 Other retention of urine; H90.3 Sensorineural hearing loss, bilateral; E78.5 Hyperlipidemia, unspecified; I08.0 Rheumatic disorders of both mitral and aortic valves; N40.1 Benign prostatic hyperplasia with lower urinary tract symptoms; K21.9 Gastro-esophageal reflux disease without esophagitis; I25.2 Old myocardial infarction; I25.10 Atherosclerotic heart disease of native coronary artery without angina pectoris; M15.9 Polyosteoarthritis, unspecified; M47.816 Spondylosis without myelopathy or radiculopathy, lumbar region; F17.290 Nicotine dependence, other tobacco product, uncomplicated
CPT/HCPCS: 00123; 36415; 70496; 70498; 80048; 80053; 80061; 85027; 87635; 93005; 93306; 96360; 96361; 97110; 97162; 97166; 97535; 99223; 99285; 70450; 70551; 71046; 72125; 72141; 81003; 81015; 83735; 84484; 85025; 85610; 93010; 99233; 99239; J3490

== ENCOUNTER → 2023-01-06 07:22 | Outpatient (BNVA) | payer MEDICARE, SELFPAY | PROVIDERS: PCP Family Medicine; Referring Provider Family Medicine; Visit Provider Psychiatry & Neurology Neurology ==

== ENCOUNTER → 2023-01-09 09:21 | Outpatient (BNVA) | payer MEDICARE, SELFPAY | PROVIDERS: PCP Family Medicine; Referring Provider Family Medicine; Visit Provider Internal Medicine Cardiovascular Disease | DX: I35.0 Nonrheumatic aortic (valve) stenosis (principal); I25.10 Atherosclerotic heart disease of native coronary artery without angina pectoris; R27.0 Ataxia, unspecified; I67.89 Other cerebrovascular disease; E11.42 Type 2 diabetes mellitus with diabetic polyneuropathy; I10 Essential (primary) hypertension | CPT/HCPCS: 99214 ==

== ENCOUNTER 2023-02-10 07:59 | Outpatient (CLI) | payer MEDICARE, SELFPAY ==
--- NOTE | 2023-02-10 14:04 | W.CARDEVENT ---
Date of service: 02/10/23 Time of Service: 14:04 Cardiac Event Recorder Referring Provider:: Russel Steen Indications:: Hypertension, ataxia Cardiac Event Note: This is a cardiac event monitor ordered for hypertension and ataxia Predominant rhythm was sinus. Average heart rate was 60. Minimum was 54 maximum 104 There were rare premature ventricular contractions. There were several brief runs of nonsustained ventricular tachycardia. The longest of these was 5 beats in duration There were several self-limited atrial runs. Some atrial runs were missed classified as ventricular tachycardia. Longest run was 9 beats in duration There was no atrial fibrillation, no high-grade AV block, no pauses greater than 3 seconds Patient symptoms of fatigue had no correlation to any dysrhythmia
== END 2023-02-10 08:00 | disposition home or self-care (01) ==
LOC: CARDOPNVT 07:59
PROVIDERS: PCP Family Medicine; Visit Provider Internal Medicine Cardiovascular Disease
DX: I10 Essential (primary) hypertension (principal); I49.1 Atrial premature depolarization
CPT/HCPCS: 93270; 93272

== ENCOUNTER → 2023-03-13 09:53 | Outpatient (BNVA) | payer OTHER, SELFPAY | PROVIDERS: PCP Family Medicine; Referring Provider Family Medicine; Visit Provider Psychiatry & Neurology Neurology | DX: R29.818 Other symptoms and signs involving the nervous system (principal); G62.9 Polyneuropathy, unspecified; R41.3 Other amnesia | CPT/HCPCS: 99214 ==

== ENCOUNTER 2023-04-22 03:24 | Outpatient (CLI) | payer MEDICARE, SELFPAY ==
[2023-04-22 12:33] LABS: Hemoglobin A1C 6.9 % (<5.7)
== END 2023-04-22 03:25 | disposition home or self-care (01) ==
LOC: LBO 03:24
PROVIDERS: PCP Family Medicine; Visit Provider Family Medicine
DX: E11.42 Type 2 diabetes mellitus with diabetic polyneuropathy (principal)
CPT/HCPCS: 36415; 83036

== ENCOUNTER → 2023-05-27 10:43 | Outpatient (BNVA) | payer MEDICARE, SELFPAY | PROVIDERS: PCP Family Medicine; Referring Provider Family Medicine; Visit Provider Podiatrist | DX: E11.42 Type 2 diabetes mellitus with diabetic polyneuropathy (principal); L60.3 Nail dystrophy; B35.3 Tinea pedis; B35.1 Tinea unguium; E11.51 Type 2 diabetes mellitus with diabetic peripheral angiopathy without gangrene; Z79.4 Long term (current) use of insulin; I87.8 Other specified disorders of veins; I73.9 Peripheral vascular disease, unspecified | CPT/HCPCS: 11721 ==

== ENCOUNTER 2023-08-29 01:42 | Outpatient (CLI) | payer MEDICARE, SELFPAY ==
[2023-08-29 11:23] LABS: Hemoglobin A1C 7.7 % (<5.7)
== END 2023-08-29 01:43 | disposition home or self-care (01) ==
LOC: LBO 01:42
PROVIDERS: PCP Family Medicine; Visit Provider Family Medicine
DX: E11.9 Type 2 diabetes mellitus without complications (principal)
CPT/HCPCS: 36415; 83036

== ENCOUNTER → 2023-09-24 09:29 | Outpatient (BNVA) | payer MEDICARE, SELFPAY | PROVIDERS: PCP Family Medicine; Referring Provider Family Medicine; Visit Provider Podiatrist | DX: E11.42 Type 2 diabetes mellitus with diabetic polyneuropathy (principal); L60.3 Nail dystrophy; B35.3 Tinea pedis; B35.1 Tinea unguium; E11.51 Type 2 diabetes mellitus with diabetic peripheral angiopathy without gangrene; Z79.4 Long term (current) use of insulin; I87.8 Other specified disorders of veins; I73.9 Peripheral vascular disease, unspecified | CPT/HCPCS: 11721 ==

== ENCOUNTER → 2023-11-25 10:11 | Outpatient (BNVA) | payer MEDICARE, SELFPAY | PROVIDERS: PCP Family Medicine; Visit Provider Internal Medicine Cardiovascular Disease | DX: I25.10 Atherosclerotic heart disease of native coronary artery without angina pectoris (principal); I35.0 Nonrheumatic aortic (valve) stenosis | CPT/HCPCS: 99213 ==

== ENCOUNTER → 2024-01-28 09:42 | Outpatient (BNVA) | payer MEDICARE, SELFPAY | PROVIDERS: PCP Family Medicine; Referring Provider Family Medicine; Visit Provider Podiatrist | DX: E11.42 Type 2 diabetes mellitus with diabetic polyneuropathy (principal); L60.3 Nail dystrophy; B35.1 Tinea unguium; B35.3 Tinea pedis; E11.51 Type 2 diabetes mellitus with diabetic peripheral angiopathy without gangrene; Z79.4 Long term (current) use of insulin; I87.8 Other specified disorders of veins | CPT/HCPCS: 11721 ==

== ENCOUNTER 2024-02-17 13:54 | Outpatient (CLI) | payer MEDICARE, SELFPAY ==
[2024-02-17 12:17] LABS: Hemoglobin A1C 7.8 % (<5.7)
== END 2024-02-17 13:55 | disposition home or self-care (01) ==
LOC: LBO 13:57
PROVIDERS: PCP Family Medicine; Visit Provider Family Medicine
DX: E11.42 Type 2 diabetes mellitus with diabetic polyneuropathy (principal)
CPT/HCPCS: 36415; 83036

== ENCOUNTER → 2024-05-04 13:30 | Outpatient (BNVA) | payer MEDICARE, SELFPAY | PROVIDERS: PCP Family Medicine; Referring Provider Family Medicine; Visit Provider Podiatrist | DX: E11.42 Type 2 diabetes mellitus with diabetic polyneuropathy (principal); L60.3 Nail dystrophy; B35.1 Tinea unguium; E11.51 Type 2 diabetes mellitus with diabetic peripheral angiopathy without gangrene; I87.8 Other specified disorders of veins; R23.8 Other skin changes; L53.8 Other specified erythematous conditions; L60.2 Onychogryphosis | CPT/HCPCS: 11721 ==

== ENCOUNTER 2024-06-03 21:12 | Emergency (ER) | payer MEDICARE, SELFPAY ==
[2024-06-03] VITALS (30 sets, daily range): BP systolic 100–160; BP diastolic 46–110; PULSE 66–77; RESP 13–26; TEMP 36.8–37; O2SAT 91–98
--- NOTE | 2024-06-03 21:24 | W.ED.GENAD ---
Discharge Plan Disposition Patient Disposition: Home Condition: Stable Discharge Details Clinical Impression: Pneumonia Primary Care Provider: Russel Steen ED Provider: Luther Whitehead Home Meds and New Rx's Prescriptions: Continued naproxen 500 mg tablet 500 mg PO BID PRN (Reason: pain) Qty: 60 1RF ketoconazole 2 % cream 1 applic topical DAILY Qty: 30 5RF Rx Instructions: To apply to fungal nails. cyanocobalamin (vitamin B-12) 100 mcg tablet 100 mcg PO DAILY Januvia 100 mg tablet 100 mg PO DAILY MDD 100 mg 30 Days Qty: 30 12RF Rx Instructions: Take one 100 mg tablet daily by mouth as directed insulin degludec [Tresiba FlexTouch U-100] 100 unit/mL (3 mL) insulin pen 14 unit subcut DAILY MDD 20 Qty: 15 12RF Rx Instructions: Inject 14 units subcutaneously once daily (DME) lancets Misc See Rx Instructions .ROUTE .MEDSUPPLY Qty: 200 3RF Rx Instructions: As directed to check blood glucose twice daily. On insulin. Dispense covered brand. (DME) Blood Glucose Test Strip See Rx Instructions .ROUTE .MEDSUPPLY Qty: 200 3RF Rx Instructions: As directed to check blood glucose twice daily. On insulin. Dispense covered brand. cholecalciferol (vitamin D3) 1,000 UNIT capsule 1,000 unit PO DAILY Psyllium [Metamucil] 1 EACH packet 1 ea PO BID PRN (DME) blood-glucose meter Misc See Rx Instructions .ROUTE .MEDSUPPLY Qty: 1 0RF Rx Instructions: As directed to check blood glucose daily. No insulin. Dispense covered brand. (DME) FreeStyle Lite Strips Strip 1 ea Miscellaneous TID Qty: 300 3RF Rx Instructions: to control hyperglycemia, E11.65. test twice daily (DME) FreeStyle Carrie 3 Sensor Device See Rx Instructions .Route Qty: 1 6RF Rx Instructions: Dx: E11.51, to keep HbA1c less than 7%, test QID and prn Jardiance 25 mg tablet 25 mg PO DAILY MDD 25 mg 90 Days Qty: 90 4RF Rx Instructions: Take 1/2 tablet for 4 days than 1 whole tablet by mouth once daily. nitroglycerin 0.4 mg tablet, sublingual 0.4 mg sublingual Q5M PRN (Reason: chest pain) Qty: 30 3RF Rx Instructions: do not exceed 3 doses per episode atenolol 25 mg tablet 25 mg PO DAILY Qty: 90 3RF atorvastatin 40 mg tablet 40 mg PO DAILY Qty: 90 3RF Rx Instructions: TO LOWER LDL CHOL UNDER 70 DUE TO CORONARY DISEASE (DME) pen needle, diabetic [BD Ultra-Fine Short Pen Needle] 31 gauge x 5/16 needle See Rx Instructions .Route Qty: 100 3RF Rx Instructions: As directed. Ultra fine short 8mmx31 gauge. Use daily. DX: E11.9 to maintain HbA1c less than 7% metformin 500 mg tablet extended release 24 hr 1,000 mg PO BID Qty: 270 3RF losartan 50 mg tablet 50 mg PO DAILY Qty: 90 3RF tamsulosin 0.4 mg capsule 0.8 mg PO DAILY Qty: 180 3RF Rx Instructions: FOR URINARY SX (Incr Dr Dorado for incr retention 04/2016) aspirin [Children's Aspirin] 81 mg Tablet,Chewable 81 mg PO DAILY Qty: 30 0RF Discharge Instructions Instructions: Levofloxacin (Systemic), Community-acquired pneumonia in adults, Albuterol Additional Instructions: You were seen in the emergency department for your right lower lobe pneumonia. Your vitals are fine, your oxygen was normal after breathing treatment, and sending home with an inhaler to use for any symptomatic shortness of breath and sending you home with levofloxacin to treat your pneumonia. I have also assigned our care management team to your case to check up on you and prescribed you with home health as here in between caregivers. Please return for any acute worsening despite treatment, take Tylenol and ibuprofen as needed for any aches and pains of pneumonia. I am sending you home with levofloxacin tablets, please take 750mg (3 tabs) once per day for the next 5 days to treat your pneumonia, use the albuterol inhaler for shortness of breath as needed Referrals: Care Management [Provider Group] Russel Steen DO [Primary Care Provider] - HPI General Date/Time Provider Initiated Documentation: 06/03/24 21:24. HPI Narrative: 83 year-old male presents to ED today by EMS with a chief complaint of cough, shortness of breath, confusion and weakness per family with onset for about 2 weeks. Quality described as generalized cough symptoms, productive with green sputum, no radiation to chest pain, nausea/vomiting, abdominal pain, diarrhea, vision changes, syncope. Severity is described as moderate. Palliating factors include nothing specific attempted. Provoking factors include nothing specific. Events leading up to the incident/Associated Symptoms: Patient placed on O2 by [place] by EMS en route for mild hypoxia low 90s. Patient not anticoagulated. Related Data Home Medications ?Medication ?Instructions ?Recorded ?Confirmed Psyllium [Metamucil] 1 ea PO BID PRN 05/20/12 06/03/24 cholecalciferol (vitamin D3) 25 1,000 unit PO DAILY 05/20/12 06/03/24 mcg (1,000 unit) capsule naproxen 500 mg tablet 500 mg PO BID PRN pain #60 tabs 11/01/21 06/03/24 blood-glucose meter #1 ea 01/24/22 05/27/24 blood sugar diagnostic (FreeStyle #300 strips 06/11/22 05/27/24 Lite Strips) aspirin 81 mg chewable tablet 81 mg PO DAILY #30 tabs 01/06/23 06/03/24 (Children's Aspirin) blood-glucose sensor (FreeStyle #1 ea 04/10/23 05/27/24 Carrie 3 Sensor device) empagliflozin 25 mg tablet 25 mg PO DAILY 90 days #90 tabs 05/13/23 06/03/24 (Jardiance) nitroglycerin 0.4 mg sublingual 0.4 mg sublingual Q5M PRN chest 06/02/23 06/03/24 tablet pain #30 tabs atenolol 25 mg tablet 25 mg PO DAILY #90 tabs 08/08/23 06/03/24 cyanocobalamin (vitamin B-12) 100 100 mcg PO DAILY 08/19/23 06/03/24 mcg tablet ketoconazole 2 % topical cream 1 applic topical DAILY #30 grams 09/04/23 06/03/24 sitagliptin phosphate 100 mg 100 mg PO DAILY 30 days #30 tabs 09/15/23 06/03/24 tablet (Januvia) atorvastatin 40 mg tablet 40 mg PO DAILY #90 tab-caps 11/11/23 06/03/24 pen needle, diabetic 31 gauge x #100 ea 11/20/23 05/27/24 5/16 (BD Ultra-Fine Short Pen Needle) metformin 500 mg tablet,extended 1,000 mg (2 x 500 mg) PO BID #270 03/04/24 06/03/24 release 24 hr tab-caps losartan 50 mg tablet 50 mg PO DAILY #90 tabs 04/23/24 06/03/24 blood sugar diagnostic (Blood #200 ea 05/27/24 05/27/24 Glucose Test strips) insulin degludec 100 unit/mL (3 14 unit (0.14 mL) subcut DAILY #15 05/27/24 06/03/24 mL) subcutaneous pen (Tresiba mL FlexTouch U-100 insulin) lancets #200 ea 05/27/24 05/27/24 tamsulosin 0.4 mg capsule 0.8 mg (2 x 0.4 mg) PO DAILY #180 06/03/24 06/03/24 tab-caps Previous Rx's ?Medication ?Instructions ?Recorded naproxen 500 mg tablet 500 mg PO BID PRN pain #60 tabs 11/01/21 blood-glucose meter #1 ea 01/24/22 blood sugar diagnostic (FreeStyle #300 strips 06/11/22 Lite Strips) aspirin 81 mg chewable tablet 81 mg PO DAILY #30 tabs 01/06/23 (Children's Aspirin) blood-glucose sensor (FreeStyle #1 ea 04/10/23 Carrie 3 Sensor device) empagliflozin 25 mg tablet 25 mg PO DAILY 90 days #90 tabs 05/13/23 (Jardiance) nitroglycerin 0.4 mg sublingual 0.4 mg sublingual Q5M PRN chest 06/02/23 tablet pain #30 tabs atenolol 25 mg tablet 25 mg PO DAILY #90 tabs 08/08/23 ketoconazole 2 % topical cream 1 applic topical DAILY #30 grams 09/04/23 sitagliptin phosphate 100 mg 100 mg PO DAILY 30 days #30 tabs 09/15/23 tablet (Januvia) atorvastatin 40 mg tablet 40 mg PO DAILY #90 tab-caps 11/11/23 pen needle, diabetic 31 gauge x #100 ea 11/20/2307/23 (BD Ultra-Fine Short Pen Needle) metformin 500 mg tablet,extended 1,000 mg (2 x 500 mg) PO BID #270 03/04/24 release 24 hr tab-caps losartan 50 mg tablet 50 mg PO DAILY #90 tabs 04/23/24 blood sugar diagnostic (Blood #200 ea 05/27/24 Glucose Test strips) insulin degludec 100 unit/mL (3 14 unit (0.14 mL) subcut DAILY #15 05/27/24 mL) subcutaneous pen (Tresiba mL FlexTouch U-100 insulin) lancets #200 ea 05/27/24 tamsulosin 0.4 mg capsule 0.8 mg (2 x 0.4 mg) PO DAILY #180 06/03/24 tab-caps Allergies Allergy/AdvReac Type Severity Reaction Status Date / Time Penicillins Allergy Unknown SWELLING Verified 06/03/24 22:05 lactose AdvReac Diarrhea Verified 06/03/24 22:05 General Stated Complaint: RespSymp GERMAN: 3 Review of Systems All systems reviewed & are unremarkable except as noted in HPI and below Exam Narrative Exam Narrative: GENERAL APPEARANCE: Well-nourished, non-toxic, awake and alert, atraumatic, no acute distress. SKIN: Warm, pink, dry, intact, without rashes/lesions/ulcerations. HEAD: Normocephalic, atraumatic, normal hair distribution for gender/age. EYES: Normal conjunctiva, no exudates on lids/lashes. ENT: Nares patent, no circumoral cyanosis, no facial swelling NECK: Supple, trachea midline, painless cervical ROM. LUNGS/CHEST: Lungs CTA bilaterally- no rhonchi/rales/wheezes diffusely, non-labored respirations, normal A/P diameter, symmetrical expansion, no chest wall deformity HEART (CV/PV): Regular rate and rhythm with murmur of , no peripheral edema, no JVD. ABDOMEN: Soft, non-distended, no guarding, no tenderness. MSK: Normal ROM, no swelling/deformity to bilateral UEs or LEs, moving all extremities without weakness, no cyanosis, spine midline without tenderness, normal curvature. NEURO: Mental Status AAOx4 - alert to person, place, time, events No facial droop, no forehead involvement. Motor: No focal weakness - strength 5/5 in bilateral UEs and LEs, proximal and distal, symmetric. Sensory: sensation intact to light touch globally. Gait normal: patient ambulated without ataxia into ED room. PSYCH: euthymic, cooperative, pleasant, appropriate speech Course Vital Signs Vital signs: Vital Signs Temperature 36.8 C 06/03/24 21:02 Pulse 75 06/03/24 21:02 Respiratory Rate 18 06/03/24 21:02 Blood Pressure 132/71 06/03/24 21:02 Pulse Oximetry 97 06/03/24 21:02 Temperature 37 C 06/03/24 21:10 Temperature Source Oral 06/03/24 21:10 Pulse 71 06/03/24 21:10 Respiratory Rate 18 06/03/24 21:10 Respiratory Effort Normal 06/03/24 21:10 Respiratory Depth Normal 06/03/24 21:10 Blood Pressure 132/71 06/03/24 21:10 Pulse Oximetry 92 06/03/24 21:10 Oxygen Delivery Method Room Air 06/03/24 21:10 Oxygen Flow Rate 0 06/03/24 21:02 Pain Level 0 06/03/24 21:02 Lab/Test Results Lab/Test Results: 06/03/24 21:18 Blood Blood Culture - Pending 06/03/24 21:11 Blood Blood Culture - Pending Medical Decision Making This dictation utilizes [id number] dictation software and may contain unedited grammatical errors. 83 year-old male presents to ED today by EMS with a chief complaint of cough, shortness of breath, confusion and weakness per family with onset for about 2 weeks. Quality described as generalized cough symptoms, productive with green sputum, no radiation to chest pain, nausea/vomiting, abdominal pain, diarrhea, vision changes, syncope. Severity is described as moderate. Palliating factors include nothing specific attempted. Provoking factors include nothing specific. Events leading up to the incident/Associated Symptoms: Patient placed on O2 by [place] by EMS en route for mild hypoxia low 90s. Patients' medical history: PAD, venous stasis, memory changes, transient neurological symptoms, history of stroke, diabetes mellitus, aortic stenosis, mitral regurgitation, hypertension, history of PA. Family and social history: Lives at home with , no alcohol or drug use. Pertinent exam findings / vital signs include murmur consistent with aortic stenosis, lungs CTA overtly, benign abdomen, nontoxic vitals, new oxygen requirement. Differential / pathologies of concern include pneumonia, sepsis, hypoxic respiratory failure, viral syndrome. Diagnostic studies of: -CBC, CMP, VBG, lactate, magnesium, troponin, UA, blood cultures, XR chest. -Leukocytosis of 20.76 with elevated absolute neutrophils -VBG shows compensated respiratory alkalosis -Lactate negative -CMP shows no actionable abnormality, mildly elevated BUN -Troponin negative with reliable onset -Urine benign save for glucose spilling in the setting of chronic diabetes, blood cultures pending -XR chest shows a right lower lobe infiltrate -PCR swab negative Interventions of: -650 PO Tylenol, DuoNeb, IV Levofloxacin for PNA. ED Course/Assessment/Plan: 83-year-old male sent in from [place] by EMS from [facility], per his family is acting more confused than normal but has memory issues at baseline, reports an upper respiratory infection for the past 2 weeks with productive cough and his recently had pneumonia. Patient is answering all questions appropriately, EMS did place him on O2 by NC at 2 L and he is currently at 91% after DuoNeb without supplemental oxygen at 2300- would likely drop into 80s with any ambulation. He has severe leukocytosis of 20.7, immature granulocytes 0.7, lactate is negative but I do feel that the patient warrants admission for acute hypoxic respiratory failure in the setting of likely pneumonia seen on chest x-ray in the right lower lobe. Patient signed out to Dr. Pettit, with admission likely, Dr. Moy fonseca. Patient ambulated at 2320- remained at 91% with ambulation, 95% at rest. D/C home with Levofloxacin course, albuterol inhaler, sent referral for Care Mgmt to follow with patient and possibly arrange home visits with social work possibly. Disposition of Pneumonia, Acute Hypoxic Respiratory Failure. Patient verbalized understanding of the plan and return to ED criteria and engaged in shared decision making. Medical Records Medical records reviewed: Yes I reviewed the patient's medical records. Imaging Data Radiologic Study: Attestation: I personally reviewed and interpreted this imaging study as follows: Imaging: X-Ray Radiologist's impression: EXAM: XR PORTABLE CHEST AP CLINICAL HISTORY: SOB; hypoxia. TECHNIQUE: 2D digital imaging was performed. COMPARISON: CR,XR XR CHEST 2V PA LATERAL from 01/04/2023 FINDINGS: Single AP portable view. Patient is rotated towards the right. Heart size is upper normal. The mediastinum is not widened. Left lung is clear. There are mild increased markings in the right lung base. No pleural effusions. Incidentally noted are calcifications in the subacromial space of the left shoulder glenohumeral region. IMPRESSION: Mild increased markings in the right lung base. Possibly exaggerated by rotation but cannot exclude mild infiltrate at this level. No obvious pleural effusion. Left lung is clear. Lab Data Lab results reviewed: Yes I reviewed the patient's lab results. Labs: 06/03/24 21:53 Blood Blood Culture - Pending 06/03/24 21:18 Blood Blood Culture - Pending Laboratory Tests Range/Units 06/03/24 06/03/24 21:18 21:55 WBC (4.4-10.8) 10^3/uL 20.76 H RBC (4.36-5.78) 10^6/uL 3.54 L Hgb (13.5-17.5) g/dL 11.1 L Hct (40.0-50.0) % 33.0 L MCV (80-95) fL 93 MCH (27.0-33.0) pg 31.4 MCHC (32.0-36.0) % 33.6 RDW (11.8-14.1) % 13.2 Plt Count (130-400) 10^3/uL 270 MPV (8.0-11.0) fL 9.0 Immature Gran % % 0.7 Neutrophils % % 89.8 Lymphocytes % % 2.2 Monocytes % % 6.9 Eosinophils % % 0.1 Basophils % % 0.3 Nucleated RBC % (0.0-0.3) % 0.0 Absolute Neutrophils (1.2-6.7) 10^3/uL 18.64 H Absolute Lymphocytes (1.2-3.4) 10^3/uL 0.46 L Absolute Monocytes (0.1-0.8) 10^3/uL 1.43 H Absolute Eosinophils (0.0-0.7) 10^3/uL 0.02 Absolute Basophils (0.0-0.2) 10^3/uL 0.06 VBG pH (7.31-7.41) 7.44 H VBG pCO2 (41-51) mmHg 37 L VBG pO2 mmHg 52 VBG HCO3 (23-28) mmol/L 25 VBG Total CO2 (24-29) mmol/L 23 L VBG O2 Saturation % 87 VBG Base Excess (-2-3) mmol/L 1 VBG Lactate (<or=2.0) mmol/L 1.6 Sodium (136-145) mmol/L 133 L Potassium (3.5-5.1) mmol/L 4.7 Chloride (98-107) mmol/L 101 Carbon Dioxide (21.0-32.0) mmol/L 26.0 Anion Gap (3-11) mmol/L 6.0 BUN (7-18) mg/dL 28 H Creatinine (0.70-1.30) mg/dL 0.9 Est GFR (CKD-EPI 2020) (mL/min/1.73m2) 84.74 Glucose (74-106) mg/dL 195 H Calcium (8.5-10.1) mg/dL 9.2 Magnesium mg/dL 1.6 Total Bilirubin (0.2-1.0) mg/dL 0.6 AST (15-37) U/L 14 L ALT (16-63) U/L 22 Alkaline Phosphatase (46-116) U/L 137 H Troponin I (<or=76) ng/L 12 NT-Pro-B Natriuret Pep (<300) pg/mL 2633 H Total Protein (6.4-8.2) g/dL 7.6 Albumin (3.4-5.0) g/dL 3.0 L Urine Color (Yellow) Yellow Urine Clarity (Clear) Clear Urine pH (5-8) 5.5 Ur Specific [place] (1.005-1.025) 1.010 Urine Protein (Neg-Trace) mg/dL 30 H Urine Ketones (Negative) mg/dL Trace H Urine Blood (Negative) Negative Urine Nitrite (Negative) Negative Urine Bilirubin (Negative) Negative Urine Urobilinogen (Up to 0.2) mg/dL 0.2 Ur Leukocyte Esterase (Negative) Negative Urine RBC (0-2) HPF 0-2 Urine WBC (0-5) HPF 0-2 Ur Epithelial Cells (Negative) HPF Rare Urine Crystals (Negative) HPF Negative Urine Bacteria (Negative) HPF Negative Urine Casts (Negative) LPF Negative Urine Mucus (Negative) Trace Urine Other (Negative) Rare Renal Ur Culture Indicated? No Urine Glucose (Negative) mg/dL >=1000 H COVID-19 Source Nasopharynx SARS-CoV-2 (PCR) (Negative) Negative Influenza Type A (PCR) (Negative) Negative Influenza Type B (PCR) (Negative) Negative RSV (PCR) (Negative) Negative Quality:SDOH Health Related Social Needs: No Data to Display [facility] All Active Problems (Updated 06/03/24 @ 23:33 by QUINTON Briggs) Pneumonia (Acute) SBD (seborrheic dermatitis) (Acute) PAD (peripheral artery disease) (Acute) Venous stasis (Acute) Memory changes (Acute) Transient neurological symptoms (Acute) Excessive cerumen in both ear canals (Acute) Stroke (Chronic) Leg weakness, bilateral (Acute) Diabetes mellitus with peripheral angiopathy (Acute) Onychomycosis (Acute) Type 2 diabetes mellitus with peripheral neuropathy (Acute) Chronic seborrheic dermatitis (Acute) Nail dystrophy (Acute) Peripheral neuropathy (Acute) Cataract, bilateral (Acute) 11/08/20 [facility] Exam ([facility]) Diabetic retinopathy of right eye (Acute ~12/08/20) mild, left normal Incomplete bladder emptying (Acute) Dr. 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) Gastro-esophageal reflux disease without esophagitis (Chronic 06/07/98) s/p esophageal dilatation 1998 Essential hypertension (Chronic 02/21/05) Diabetes mellitus (Chronic 05/30/06) A1C 6.9 01/2010 no retinopathy 10/14/14; goal A1c<7.5 Coronary atherosclerosis of kaw coronary vessel (Chronic 11/08/93) PA AND ANGIOLPLASTY ANKORAGE 11/1993; stent 1996 Actinic keratosis (Chronic 03/11/83) Flori arias; Dr Cotton 2013 Dr Delatorre [facility] [place] Derm Medical History Ataxia due to acute cerebrovascular disease Ischemic cardiomyopathy Hyponatremia Surgical History Repair of inguinal hernia (03/08/13) left KSD Family History Mother No problems noted. Father , 75 Diabetes Social History Smoking/Tobacco Use Status: Former Tobacco Use Smokeless tobacco user: chewing tobacco Smoking risk assessment performed?: Yes Alcohol Intake: current Alcohol Intake frequency: holidays/special occasions only Drug use: Never Substance use type: does not use Household members: spouse Housing: house Number of Children: 8 Communication Needs: Hard of Hearing and Corrective Lenses Current gender identity: male What is your relationship status?: Panel score (0-1 are the most socially isolated patients): 1 What type of physical activity do you participate in: other Details: treadmil Duration: < 15 minutes/day Frequency: 3-4 times per week Seatbelt use: always 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
[2024-06-03] MEDS: Acetaminophen 325 MG TAB 650 MG PO (21:26)
[2024-06-03 21:27] LABS: BE (Venous) 1 mmol/L (-2-3); HCO3 (Venous) 25 mmol/L (23-28); Lactate 1.6 mmol/L (<or=2.0); O2 Sat (Venous) 87 %; TCO2 (Venous) 23 mmol/L (24-29); pCO2 (Venous) 37 mmHg (41-51); pH (Venous) 7.44 (7.31-7.41); pO2 (Venous) 52 mmHg
[2024-06-03] MEDS: Albuterol/Ipratropium 3 ML UPD VIAL UPD (21:27)
[2024-06-03 21:29] LABS: Abs Immature Grans 0.15 10^3/uL (0.0-0.06); Absolute Basophil Count 0.06 10^3/uL (0.0-0.2); Absolute Eosinophil Count 0.02 10^3/uL (0.0-0.7); Absolute Monocyte Count 1.43 10^3/uL (0.1-0.8); Basophils % 0.3 %; Eosinophils % 0.1 %; HGB 11.1 g/dL (13.5-17.5); Immature Grans % 0.7 %; Lymphocytes % 2.2 %; MCH 31.4 pg (27.0-33.0); MCHC 33.6 % (32.0-36.0); MCV 93 fL (80-95); Monocytes % 6.9 %; Neutrophils % 89.8 %; Platelet Count 270 10^3/uL (130-400); RBC 3.54 10^6/uL (4.36-5.78); RDW 13.2 % (11.8-14.1); RDW-SD 45.3 fL; WBC 20.76 10^3/uL (4.4-10.8)
[2024-06-03 21:31] LABS: Absolute Lymphocyte Count 0.46 10^3/uL (1.2-3.4); Absolute Neutrophil Count 18.64 10^3/uL (1.2-6.7)
[2024-06-03 21:56] LABS: ALT 22 U/L (16-63); AST 14 U/L (15-37); Alkaline Phosphatase 137 U/L (46-116); BUN 28 mg/dL (7-18); Bilirubin, Total 0.6 mg/dL (0.2-1.0); CREATININE 0.9 mg/dL (0.70-1.30); Calcium 9.2 mg/dL (8.5-10.1); Chloride 101 mmol/L (98-107); Estimated GFR 84.74 (mL/min/1.73m2); Glucose 195 mg/dL (74-106); Magnesium 1.6 mg/dL; Potassium 4.7 mmol/L (3.5-5.1); Sodium 133 mmol/L (136-145); Total Protein 7.6 g/dL (6.4-8.2); Troponin I 12 ng/L (<or=76)
[2024-06-03 22:05] LABS: Bilirubin Negative (Negative); Blood Negative (Negative); Clarity Clear (Clear); Glucose >=1000 mg/dL (Negative); Ketones Trace mg/dL (Negative); Leukocyte Esterase Negative (Negative); Nitrite Negative (Negative); Urobilinogen 0.2 mg/dL (Up to 0.2); pH 5.5 (5-8)
[2024-06-03] MEDS: levoFLOXacin 750 MG/150 ML BAG 100 MG IVPB (22:07)
--- NOTE | 2024-06-03 22:09 | DI.VRAD_ITS ---
PROCEDURE INFORMATION: Exam: XR Chest Exam date and time: 06/03/2024 9:25 PM Age: 83 years old Clinical indication: Shortness of breath; SOB, hypoxia TECHNIQUE: Imaging protocol: Radiologic exam of the chest. Views: 1 view. COMPARISON: CR XR CHEST 2V PA LATERAL 01/04/2023 5:15 PM FINDINGS: Lungs: Linear bibasilar opacities most consistent with subsegmental atelectasis. Pleural spaces: Unremarkable. No pleural effusion. No pneumothorax. Heart/Mediastinum: The heart demonstrates diffuse enlargement. Bones/joints: No acute osseous abnormality. Soft tissues: Soft tissues are unremarkable as visualized. IMPRESSION: No acute findings. Dictated and Authenticated by: Sandra Cardozo MD. Orderin Charley Sloan MD
[2024-06-03 22:16] LABS: RBC 0-2 HPF (0-2); WBC 0-2 HPF (0-5)
[2024-06-03 22:17] LABS: Bacteria Negative HPF (Negative); C & S Indicated? No; Casts Negative LPF (Negative); Crystals Negative HPF (Negative); Epithelial Cells Rare HPF (Negative); Mucus Trace (Negative); Other Cells Rare Renal (Negative)
[2024-06-03 22:31] LABS: NT-proBNP 2633 pg/mL (<300)
[2024-06-03 22:37] LABS: COVID-19 PCR Negative (Negative); Influenza A PCR Negative (Negative); Influenza B PCR Negative (Negative); RSV PCR Negative (Negative); Source Nasopharynx
[2024-06-04] VITALS (8 sets, daily range): BP systolic 117–128; BP diastolic 58–88; PULSE 65–95; RESP 18–23; O2SAT 94–97
[2024-06-04] MEDS: Albuterol HFA 8 GM 60 PUFF INH IH (00:14)
[2024-06-04] MEDS: levoFLOXacin 250 MG TAB 3750 MG PO (00:14)
--- NOTE | 2024-06-04 00:15 | NUR.NOTE ---
PT is unable to find a ride home. PT will stay here for the night and get a ride home ion the morning. PTs bedding changed and new clothing provided for the PT. PT will sleep in ED. Nursing Note:
--- NOTE | 2024-06-04 01:32 | NUR.NOTE ---
PT requested his BG checked. BG 202. ED notified Nursing Note:
== END 2024-06-04 06:56 | disposition home or self-care (01) ==
PROVIDERS: Emergency Provider Physician Assistant; PCP Family Medicine
DX: J18.9 Pneumonia, unspecified organism (principal); E11.9 Type 2 diabetes mellitus without complications; I10 Essential (primary) hypertension; Z79.4 Long term (current) use of insulin; Z79.84 Long term (current) use of oral hypoglycemic drugs; Z79.899 Other long term (current) drug therapy
CPT/HCPCS: 36415; 80053; 82805; 82962; 87040; 87637; 94640; 96365; 99284; 71045; 81003; 81015; 83605; 83735; 83880; 84484; 85025; J1956; J7620

== ENCOUNTER 2024-07-15 12:02 | Outpatient (REF) | payer MEDICARE, SELFPAY ==
--- NOTE | 2024-07-15 11:32 | SKI_PTH ---
PATIENT: Ken Schmidt LOC: [facility] U#:[id number] AGE/SX: 83/M ROOM: RE07/15/[address]: Miguel Srivastava MD : [id number] BED: DIS: 07/15/2024 SPEC #: [id number] RECD: 07/15/24 18:10 STATUS: TAYLOR REQ #: [id number] JAYSON: 07/15/24 11:[address]: Miguel Srivastava DEPT: Surgical Specimen RECD BY: Dyan Mccarty ENTERED: 07/15/24 18:10 SP TYPE: ADITHYA DUMONT DR: Russel Steen DO Tissues: 1 - SKIN BIOPSY(SHAVE/PUNCH) Procedures: SKIN LEVEL 4 Comments: [id number]
== END 2024-07-15 12:03 | disposition home or self-care (01) ==
LOC: LBN 12:02
PROVIDERS: PCP Family Medicine; Visit Provider Otolaryngology
DX: C44.91 Basal cell carcinoma of skin, unspecified (principal)
CPT/HCPCS: 88305

== ENCOUNTER → 2024-09-01 13:31 | Outpatient (BNVA) | payer MEDICARE, SELFPAY | PROVIDERS: PCP Family Medicine; Referring Provider Family Medicine; Visit Provider Podiatrist | DX: L60.3 Nail dystrophy (principal); B35.1 Tinea unguium; E11.42 Type 2 diabetes mellitus with diabetic polyneuropathy; E11.51 Type 2 diabetes mellitus with diabetic peripheral angiopathy without gangrene; I87.8 Other specified disorders of veins; R09.89 Other specified symptoms and signs involving the circulatory and respiratory systems; R23.8 Other skin changes; L53.8 Other specified erythematous conditions; I83.93 Asymptomatic varicose veins of bilateral lower extremities; L60.2 Onychogryphosis | CPT/HCPCS: 11721 ==

== ENCOUNTER 2024-11-30 07:48 | Outpatient (CLI) | payer MEDICARE, SELFPAY ==
--- NOTE | 2024-11-30 07:45 | RT.EKG_ITS ---
APPROVED REPORT Exam: Resting ECG Reason for Exam: CAD Patient Location: O HR:60 bpm ECG Measurements Heart Rate 60 AXIS OH 193 P 40 QRSd 129 QRS -45 QT 430 T 100 QTc 430 Conclusion Sinus rhythm...normal P axis, V-rate 50- 99 LVH with IVCD, LAD and secondary repol abnrm...multi-criteria, wQRSd, abnr ST-T LAFB Old anterior infarct
== END 2024-11-30 07:49 | disposition home or self-care (01) ==
LOC: DI.CARD 07:48
PROVIDERS: PCP Family Medicine; Visit Provider Internal Medicine Cardiovascular Disease
DX: I25.10 Atherosclerotic heart disease of native coronary artery without angina pectoris (principal); I34.0 Nonrheumatic mitral (valve) insufficiency; I25.5 Ischemic cardiomyopathy
CPT/HCPCS: 93010

== ENCOUNTER → 2024-11-30 09:52 | Outpatient (BNVA) | payer MEDICARE, SELFPAY | PROVIDERS: PCP Family Medicine; Visit Provider Internal Medicine Cardiovascular Disease | DX: I35.0 Nonrheumatic aortic (valve) stenosis (principal); I25.10 Atherosclerotic heart disease of native coronary artery without angina pectoris; I25.5 Ischemic cardiomyopathy; I34.0 Nonrheumatic mitral (valve) insufficiency | CPT/HCPCS: 99213; 93005 ==

== ENCOUNTER → 2024-12-13 09:49 | Outpatient (BNVA) | payer MEDICARE, SELFPAY | PROVIDERS: PCP Family Medicine; Referring Provider Family Medicine; Visit Provider Podiatrist | DX: L60.3 Nail dystrophy (principal); B35.1 Tinea unguium; E11.42 Type 2 diabetes mellitus with diabetic polyneuropathy; E11.51 Type 2 diabetes mellitus with diabetic peripheral angiopathy without gangrene; I87.8 Other specified disorders of veins; R09.89 Other specified symptoms and signs involving the circulatory and respiratory systems; R23.8 Other skin changes; L53.8 Other specified erythematous conditions; I83.93 Asymptomatic varicose veins of bilateral lower extremities; L60.2 Onychogryphosis; L60.8 Other nail disorders | CPT/HCPCS: 11721 ==